=== PATIENT | female | born 1945 | race Two or more races ===

== ENCOUNTER 2016-11-14 14:56 | Emergency (ER) | payer MEDICARE ==
[~2016-11-14] VITALS: Ht 157.5 cm; Wt 52.2 kg
[2016-11-14 15:28] VITALS: BP 129/115
[2016-11-14] MEDS ORDERED: ACETAMINOPHEN-1 EAC1 ORAL (16:08)
--- NOTE | 2016-11-14 16:15 | Diagnostic Imaging Report ---
Indication: Pain Findings: 3 views of the left shoulder were obtained. There is an acute fracture of the humeral neck with some impaction. Generalized osteopenia is present. Impression: Acute fracture of the surgical neck of the left humerus. Moderate osteoporosis
--- NOTE | 2016-11-14 16:15 | Diagnostic Imaging Report ---
Indication: Pain Findings: 2 views of the left humerus were obtained. Bones are osteopenic. A fracture of the left femoral neck demonstrated. No other fractures are identified within the humerus. Impression: Acute humeral neck fracture
[2016-11-14 18:50] VITALS: BP 142/91
[2016-11-14 18:58] VITALS: BP 142/91
--- NOTE | 2016-11-14 19:30 | Emergency Room Report ---
History of Present Illness General Chief Complaint: Upper Extremity Injury Source: Patient Present Illness HPI 71-year-old female presents ED complaining of left shoulder pain. Per EMS patient had a mechanical fall yesterday at her intermediate. Patient had x- rays done yesterday which showed a humeral head fracture. Patient was sent here for further evaluation. Patient states pain is 10 out of 10. Throbbing. Nonradiating. No other aggravating relieving factors. Unable to move arm. Denies any other injuries. Denies any other associated symptoms Allergies: Coded Allergies: LIANG INHIBITORS (Verified Allergy, Unknown, 11/14/16) Patient History Past Medical History: HTN, dementia Pertinent Family History: none Social History: Denies: alcohol use, drug use, smoking Now: No Immunizations: UTD Reviewed Nursing Documentation: PMH: Agreed, PSxH: Agreed Nursing Documentation-PMH Hx Hypertension: Yes History Of Psychiatric Problem: Yes - Major depressive D/O, Alzheimer's Ds, Dementia Review of Systems All Other Systems: negative except mentioned in HPI Physical Exam Vital Signs Date Time Temp Pulse Resp B/P Pulse Ox O2 Delivery O2 Flow Rate FiO2 11/14/16 14:56 97.9 80 20 143/49 99 Room Air Sp02 EP Interpretation: reviewed, normal General Appearance: no apparent distress, alert, GCS 15, non-toxic Head: normocephalic Eyes: bilateral eye PERRL, bilateral eye normal inspection ENT: normal ENT inspection Neck: normal inspection Respiratory: normal inspection Cardiovascular #1: normal inspection Gastrointestinal: normal inspection Rectal: deferred Genitourinary: no CVA tenderness Musculoskeletal: decreased range of motion - L shoulder, tender Neurologic: alert, oriented x3, responsive, motor strength/tone normal, sensory intact, speech normal Psychiatric: normal inspection Skin: normal inspection Lymphatic: normal inspection Procedures Splinting Splinting : Consent: Verbal Pre-Made Type: Pre-Proc Neuro Vasc Exam: normal Post-Proc Neuro Vasc Exam: normal Patient Tolerated: Well Complications: None Medical Decision Making Diagnostic Impression: Primary Impression: Humerus fracture Qualified Codes: S42.215A - Unspecified nondisplaced fracture of surgical neck of left humerus, initial encounter for closed fracture ER Course Hospital Course 71-year-old F presents to ED complaining of L shoulder pain s/p fall Differential diagnoses include: Fracture, dislocation, sprain, contusion Clinical course Patient placed on stretcher. After initial history and physical, I ordered xrays of L shoudler/humerus Xrays read shows fracture of surgical neck of the humerus discussed case with Dr. Cooper; he agrees patient in the safely discharged back to SNF. Placed in shoulder sling Diagnosis - humerus fx Stable and discharged to SNF with prescription for Tylenol #3. apply ice, keep elevated. weight bear as tolerated. Followup with PMD. Return to ED if symptoms recur or worsen Other X-Ray Diagnostic Results Other X-Ray Diagnostic Results : X-Ray Ordered: L shoulder, L humerus EP Interpretation: No Findings: no dislocation Number of Views: 3 Other Impression Left shoulder-fracture of surgical neck of left humerus, no dislocation, positive soft tissue swelling Left humerus-fracture surgical neck left humerus, dislocation, positive soft tissue swelling Last Vital Signs Date Time Temp Pulse Resp B/P Pulse Ox O2 Delivery O2 Flow Rate FiO2 11/14/16 18:58 98.0 91 20 142/91 100 Room Air Status: improved Disposition: XFER SNF Condition: Stable Scripts Acetaminophen With Codeine (T#3) (TYLENOL #3 TAB*) Y Tab 1 TAB ORAL Q8H Y for For Pain, #20 TAB Prov: SELAM MURO M.D. 11/14/16 Referrals: Carols Green MD (PCP) Patient Instructions: Humerus Fracture Treated With Immobilization, Easy-to- Read SELAM MURO M.D. Nov 14, 2016 19:30
--- NOTE | 2016-11-14 23:59 | Consultation ---
DATE OF CONSULTATION: 11/14/2016 ORTHOPEDIC CONSULTATION CHIEF COMPLAINT: Left shoulder pain. HISTORY OF PRESENT ILLNESS: The patient is a 71-year-old female, who resides in a senior living facility and reportedly had a fall. She subsequently had an imaging study, which showed fracture. She was transferred to the ER for further care and recommendations. The patient has significant dementia and cognitive impairment. PAST MEDICAL HISTORY: Reviewed. PAST SURGICAL HISTORY: Reviewed. MEDICATIONS: Reviewed. PHYSICAL EXAMINATION: Limited. The patient is alert. She is nonverbal. She has pain with internal and external rotation. Left shoulder has some grimacing process. Radial pulses +2. IMAGING STUDIES: Showed two-part slightly displaced proximal humerus fracture. ASSESSMENT: Left two-part proximal humerus fracture. PLAN: I discussed at this point, given her dementia, cognitive impairment and osteoporosis what I recommend is nonoperative treatment. I recommend a sling immobilization and nonweightbearing and this fracture will heal in four to six weeks, at which point she can get some Codman exercises and functional rehabilitation. She can follow up in four to six weeks as outpatient. Eliseo Cooper M.D. DR: MIHIR JOB#: [id number] CC: ANNMARIE
== END 2016-11-14 19:00 ==
LOC: EDBD 14:56 → EMR 16:10
DX: S42.212A Unspecified displaced fracture of surgical neck of left humerus, initial encounter for closed fracture (principal); M81.8 Other osteoporosis without current pathological fracture; W19.XXXA Unspecified fall, initial encounter; Y92.129 Unspecified place in nursing home as the place of occurrence of the external cause; I10 Essential (primary) hypertension; F32.89 Other specified depressive episodes
CPT/HCPCS: 99285

== ENCOUNTER 2018-07-19 10:47 | Emergency (ER) | payer MEDICARE, OTHER ==
[~2018-07-19] VITALS: Ht 157.5 cm; Wt 61.2 kg
[~2018-07-19 10:47] MED LIST: ACETAMINOPHEN-1 EAC1 ORAL
[2018-07-19 10:55] VITALS: BP 147/104
[2018-07-19 11:39] LABS: BASOPHILS % (AUTO) 0.6 % (0.0-2.0); EOSINOPHILS % (AUTO) 0.4 % (0.0-3.0); HEMATOCRIT 43.1 % (37.0-47.0); HEMOGLOBIN 14.9 G/DL (12.0-16.0); LYMPHOCYTES % (AUTO) 12.8 % (20.0-45.0); MEAN CORPUSCULAR VOLUME 85 FL (80-99); MONOCYTES % (AUTO) 6.3 % (1.0-10.0); NEUTROPHILS % (AUTO) 79.9 % (45.0-75.0); PLATELET COUNT 268 K/UL (150-450); RED BLOOD COUNT 5.06 M/UL (4.20-5.40); RED CELL DISTRIBUTION WIDTH 12.6 % (11.6-14.8); WHITE BLOOD COUNT 12.5 K/UL (4.8-10.8)
[2018-07-19 11:42] LABS: APPEARANCE,URINE SLIGHTLY CLOUDY; BILIRUBIN, URINE NEGATIVE (NEGATIVE); COLOR,URINE PALE YELLOW; GLUCOSE, URINE (UA) NEGATIVE (NEGATIVE); KETONES,URINE NEGATIVE (NEGATIVE); LEUKOCYTE ESTERASE ,URINE 1+ (NEGATIVE); NITRITE,URINE NEGATIVE (NEGATIVE); PH,URINE 8 (4.5-8.0); PROTEIN,URINE NEGATIVE (NEGATIVE); UROBILINOGEN,URINE NORMAL MG/DL (0.0-1.0)
[2018-07-19 11:49] LABS: ANION GAP 11 mmol/L (5-15); BLOOD UREA NITROGEN 13 mg/dL (7-18); CALCIUM 8.8 MG/DL (8.5-10.1); CARBON DIOXIDE 25 MMOL/L (21-32); CHLORIDE 110 MMOL/L (98-107); CREATININE 0.6 MG/DL (0.55-1.30); POTASSIUM 3.9 MMOL/L (3.5-5.1); SODIUM 146 MMOL/L (136-145)
[2018-07-19 11:55] LABS: ALANINE AMINOTRANSFERASE 25 U/L (12-78); ALBUMIN 2.8 G/DL (3.4-5.0); ALBUMIN/GLOBULIN RATIO 0.5 (1.0-2.7); ALKALINE PHOSPHATASE 91 U/L (46-116); ASPARTATE AMINO TRANSFERASE 26 U/L (15-37); BILIRUBIN,TOTAL 0.5 MG/DL (0.2-1.0)
--- NOTE | 2018-07-19 12:21 | Diagnostic Imaging Report ---
Indications: Head injury, status post fall, forehead laceration Technique: Spiral acquisitions obtained through the brain. Angled axial and coronal 5 x 5 mm slices were reconstructed. Total dose length product 1344.42 mGycm. CTDI vol(s) 70.38 mGy. Dose reduction achieved using automated exposure control Comparison: None. Findings: There is marked age-related enlargement of the ventricles and extra axial CSF spaces. There is periventricular deep white matter low-attenuation. No acute intracranial hemorrhage or edema. No mass effect nor midline shift. There is minimal sinus disease. The mastoids are clear. The calvarium is intact Impression: Chronic and age-related changes, including age-related volume loss and periventricular deep white matter low attenuation consistent with chronic ischemic change. Negative for acute intracranial bleed or mass effect The CT scanner at [facility] is accredited by the [employer] and the scans are performed using protocols designed to limit radiation exposure to as low as reasonably achievable to attain images of sufficient resolution adequate for diagnostic evaluation.
--- NOTE | 2018-07-19 12:25 | Diagnostic Imaging Report ---
Indications: Fall with facial trauma and left laceration Technique: Spiral images obtained through the facial bones. No IV contrast utilized. Multiplanar reconstructions were generated.Total dose length product 581 mGycm. CTDIvol(s) 28 mGy. Dose reduction achieved using automated exposure control Comparison: none Findings: Gas bubbles anterior to the right mandibular alveolar ridge could be within the vocal space or could represent penetrating trauma related to stated clinical history of liver laceration. No evidence of acute fracture. There is sigmoid nasal septal deviation. No worrisome sinus air-fluid levels. There is minimal ethmoid sinus mucosal disease. The optic globes and retroseptal orbits are unremarkable except for evidence of prior cataract surgery on the left. Impression: No acute bony trauma Possible penetrating trauma to the right upper lip. Correlate with clinical findings Minimal sinus disease The CT scanner at [facility] is accredited by the [employer] and the scans are performed using protocols designed to limit radiation exposure to as low as reasonably achievable to attain images of sufficient resolution adequate for diagnostic evaluation.
[2018-07-19] MEDS ORDERED: TYLENOL325 M1 PO (12:28)
[2018-07-19] MEDS ORDERED: MULTI VITAMIN1 EACH ORAL (12:28)
[2018-07-19] MEDS ORDERED: TYLENOL325 MG ORAL (12:28)
[2018-07-19] MEDS ORDERED: PRO-STAT 64 LI887 ML PO (12:28)
[2018-07-19] MEDS ORDERED: VITAMIN C500 M3 ORAL (12:28)
[2018-07-19] MEDS ORDERED: LIPITOR20 MG ORAL (12:28)
[2018-07-19] MEDS ORDERED: FLEET ENEMA133 M1 RC (12:28)
[2018-07-19] MEDS ORDERED: NORVASC10 MG ORAL (12:28)
[2018-07-19] MEDS ORDERED: OYSTER SHELL 51 EAC1 PO (12:28)
[2018-07-19] MEDS ORDERED: MELATONIN3 MG ORAL (12:28)
[2018-07-19] MEDS ORDERED: MILK OF MA2400 MG/10 ORAL (12:28)
[2018-07-19] MEDS ORDERED: VITAMIN D3400 UNI2 PO (12:28)
[2018-07-19] MEDS ORDERED: COLACE100 MG ORAL (12:28)
[2018-07-19] MEDS ORDERED: DULCOLAX10 MG RC (12:28)
[2018-07-19] MEDS ORDERED: Hydrogen Peroxide 473ml Bottle TOPIC ONE ×2 (12:50→13:00)
[2018-07-19 12:55] VITALS: BP 102/85
[2018-07-19 14:27] VITALS: BP 130/61
[2018-07-19 14:37] VITALS: BP 130/60
--- NOTE | 2018-07-19 14:58 | Emergency Room Report ---
History of Present Illness General Chief Complaint: Multiple Trauma/Fall Source: Patient Present Illness HPI 72-year-old female presents ED for evaluation. Coming from [facility]. Had a headache injury when being transferred from bed to wheelchair. No LOC. Upon arrival patient is at baseline. Awake alert oriented 1. Bleeding above the left eye. Patient is unable to provide any additional history at this time. No signs of additional injury. Not taking blood thinners. No other aggravating relieving factors. Denies any other associated symptoms Allergies: Coded Allergies: LIANG INHIBITORS (Verified Allergy, Unknown, 11/14/16) Patient History Past Medical History: HTN, other - diverticulosis Pertinent Family History: none Social History: Denies: smoking, alcohol use, drug use Now: No Immunizations: UTD Reviewed Nursing Documentation: PMH: Agreed; PSxH: Agreed Nursing Documentation-PMH Past Medical History: No History, Except For Hx Hypertension: Yes Hx Gastrointestinal Problems: Yes - Diverticulosis Review of Systems All Other Systems: limited Physical Exam Vital Signs Date Time Temp Pulse Resp B/P (MAP) Pulse Ox O2 Delivery O2 Flow Rate FiO2 07/19/18 10:44 97.5 18 20 98 Room Air 07/19/18 10:55 147/104 Sp02 EP Interpretation: reviewed, normal General Appearance: no apparent distress, non-toxic, other - nonverbal Head: normocephalic, other - 1cm laceration above L eyebrow ENT: normal ENT inspection Neck: normal inspection Respiratory: chest non-tender, lungs clear, normal breath sounds, speaking full sentences Cardiovascular #1: regular rate, rhythm, no edema Gastrointestinal: normal inspection Rectal: deferred Genitourinary: no CVA tenderness Musculoskeletal: normal inspection Neurologic: other - nonverbal Psychiatric: other - nonverbal Skin: normal inspection Lymphatic: normal inspection Procedures Laceration/Wound Repair Laceration/Wound Repair : Consent: Verbal Wound Location: head Wound's Depth, Shape: linear Wound Explored: clean Betadine Prep?: Yes Wound Debrided: minimal Wound Repaired With: Dermabond Layer Closure?: No Sterile Dressing Applied?: No Splint Applied?: No Sling Applied?: Yes Patient Tolerated: Well Complications: None Medical Decision Making Diagnostic Impression: Primary Impression: Laceration of head Qualified Codes: S01.81XA - Laceration without foreign body of other part of head, initial encounter Additional Impression: Head injury Qualified Codes: S09.90XA - Unspecified injury of head, initial encounter ER Course Hospital Course 72 yo F presents to ED with laceration to forehead s/p fall Clinical course Patient placed on stretcher. After initial history and physical I ordered CT head, facial bones. Labs. Labssodium 146, minimal leukocytosis. BUN/Cr normal. UA negative CT head and CT facial bones negative For laceration repaired with Dermabond. Lip laceration is minimal does not require suturing. Discussed findings with PMD Dr. Green he agrees that patient can be safely discharged back to facility Diagnosis - laceration of head, head injury Stable and discharged to home. wound Care instructions given. Followup with PMD. Return to ED if any signs of infection develop Labs Test 07/19/18 11:20 White Blood Count 12.5 K/UL (4.8-10.8) Red Blood Count 5.06 M/UL (4.20-5.40) Hemoglobin 14.9 G/DL (12.0-16.0) Hematocrit 43.1 % (37.0-47.0) Mean Corpuscular Volume 85 FL (80-99) Mean Corpuscular Hemoglobin 29.4 PG (27.0-31.0) Mean Corpuscular Hemoglobin Concent 34.5 G/DL (32.0-36.0) Red Cell Distribution Width 12.6 % (11.6-14.8) Platelet Count 268 K/UL (150-450) Mean Platelet Volume 5.7 FL (6.5-10.1) Neutrophils (%) (Auto) 79.9 % (45.0-75.0) Lymphocytes (%) (Auto) 12.8 % (20.0-45.0) Monocytes (%) (Auto) 6.3 % (1.0-10.0) Eosinophils (%) (Auto) 0.4 % (0.0-3.0) Basophils (%) (Auto) 0.6 % (0.0-2.0) Urine Color Pale yellow Urine Appearance Slightly cloudy Urine pH 8 (4.5-8.0) Urine Specific [place] 1.010 (1.005-1.035) Urine Protein Negative (NEGATIVE) Urine Glucose (UA) Negative (NEGATIVE) Urine Ketones Negative (NEGATIVE) Urine Blood 1+ (NEGATIVE) Urine Nitrite Negative (NEGATIVE) Urine Bilirubin Negative (NEGATIVE) Urine Urobilinogen Normal MG/DL (0.0-1.0) Urine Leukocyte Esterase 1+ (NEGATIVE) Urine RBC 0-2 /HPF (0 - 2) Urine WBC 2-4 /HPF (0 - 2) Urine Squamous Epithelial Cells Few /LPF (NONE/OCC) Urine Bacteria Few /HPF (NONE) Sodium Level 146 MMOL/L (136-145) Potassium Level 3.9 MMOL/L (3.5-5.1) Chloride Level 110 MMOL/L (98-107) Carbon Dioxide Level 25 MMOL/L (21-32) Anion Gap 11 mmol/L (5-15) Blood Urea Nitrogen 13 mg/dL (7-18) Creatinine 0.6 MG/DL (0.55-1.30) Estimat Glomerular Filtration Rate mL/min (>60) Glucose Level 90 MG/DL (74-106) Calcium Level 8.8 MG/DL (8.5-10.1) Total Bilirubin 0.5 MG/DL (0.2-1.0) Aspartate Amino Transf (AST/SGOT) 26 U/L (15-37) Alanine Aminotransferase (ALT/SGPT) 25 U/L (12-78) Alkaline Phosphatase 91 U/L (46-116) Total Protein 7.9 G/DL (6.4-8.2) Albumin 2.8 G/DL (3.4-5.0) Globulin 5.1 g/dL Albumin/Globulin Ratio 0.5 (1.0-2.7) Lipase 299 U/L (73-393) CT/MRI/US Diagnostic Results CT/MRI/US Diagnostic Results #1: Imaging Test Ordered: CT Head Impression no acute process CT/MRI/US Diagnostic Results #2: Imaging Test Ordered: CT Facial Boens Impression no acute process Last Vital Signs Date Time Temp Pulse Resp B/P (MAP) Pulse Ox O2 Delivery O2 Flow Rate FiO2 07/19/18 14:37 98.1 85 18 130/60 99 Room Air 85 Status: improved Disposition: HOME, SELF-CARE Condition: Stable Patient Instructions: Facial Laceration, [id number] Ruben Cox MD Jul 19, 2018 14:58
== END 2018-07-19 14:44 | disposition home or self-care (01) ==
LOC: EDBD 10:47 → EMR 11:10
DX: S01.81XA Laceration without foreign body of other part of head, initial encounter (principal); W19.XXXA Unspecified fall, initial encounter; Y92.129 Unspecified place in nursing home as the place of occurrence of the external cause; J34.9 Unspecified disorder of nose and nasal sinuses
CPT/HCPCS: 36415; 70450; 70486; 80053; 81003; 83690; 85025; 99284

== ENCOUNTER 2018-10-18 12:16 | Inpatient (IN) | payer MEDICARE, OTHER ==
[~2018-10-18] VITALS: Ht 147.3 cm; Wt 64.4 kg
[~2018-10-18 12:16] MED LIST changes: +COLACE100 MG ORAL; +DULCOLAX10 MG RC; +FLEET ENEMA133 M1 RC; +LIPITOR20 MG ORAL; +MELATONIN3 MG ORAL; +MILK OF MA2400 MG/10 ORAL; +MULTI VITAMIN1 EACH ORAL; +NORVASC10 MG ORAL; +OYSTER SHELL 51 EAC1 PO; +PRO-STAT 64 LI887 ML PO; +TYLENOL325 M1 PO; +TYLENOL325 MG ORAL; +VITAMIN C500 M3 ORAL; +VITAMIN D3400 UNI2 PO
[2018-10-18] MEDS ORDERED: ATORVASTATIN CA20 MG ORAL (12:19)
[2018-10-18] MEDS ORDERED: NORVASC10 MG ORAL (12:19)
[2018-10-18] MEDS ORDERED: ASPIRIN-LOW81 MG ORAL (12:19)
[2018-10-18] MEDS ORDERED: levETIRAcetam 500 MG in D5W 110 ML IV ONE (12:30)
--- NOTE | 2018-10-18 12:30 | NUR ---
ED Nurse Note: Pt brought in by [facility] from [facility] conv c/o seizure lasted about 1 min witnessed by pt's . per EMS pt has no hx seizure. Pt neuro status baseline arousable to pain. BS 106 on field. PT awake but nonverbal at this time, able to make eye contact, skin warm and dry, resp even and unlabored, -n/v/d, on bed rest, will cont monitor. seizure precaution and aspiration precaution started.
--- NOTE | 2018-10-18 13:26 | Diagnostic Imaging Report ---
Indications: Seizure about 30 minutes ago, altered mental status Technique: Spiral acquisitions obtained through the brain. Angled axial and coronal 5 x 5 mm slices were reconstructed. Total dose length product 1365.53 mGycm. CTDI vol(s) 70.38 mGy. Dose reduction achieved using automated exposure control Comparison: 07/19/2018 Findings: Again demonstrated is marked age-related enlargement of the ventricles and extra axial CSF spaces. No acute intracranial hemorrhage nor edema, mass effect nor midline shift. There is extensive periventricular deep white matter low-attenuation, consistent with chronic ischemic change. There is evidence of prior cataract surgery on the left. The included sinuses are unremarkable. The mastoids are clear. The calvarium is intact. No significant interim change Impression: Chronic and age-related changes, as described. Negative for acute intracranial bleed or mass effect The CT scanner at [facility] is accredited by the [employer] and the scans are performed using protocols designed to limit radiation exposure to as low as reasonably achievable to attain images of sufficient resolution adequate for diagnostic evaluation.
[2018-10-18 14:10] VITALS: BP 129/76
--- NOTE | 2018-10-18 14:30 | NUR ---
ED Nurse Note: witnessed sz x1 activity for 30sec, ERMD notified, airway maintained, pt sinus tach, teeth clenched, resp even and unlabored, sz precaution and aspiration precaution in place, will cont monitor.
--- NOTE | 2018-10-18 14:42 | Emergency Room Report ---
History of Present Illness General Chief Complaint: Seizure Present Illness HPI Patient is a 72-year-old female brought in by EMS after increased altered mental status. Patient had been sent in from retirement. Patient had reportedly been having some witnessed seizure-like activity. Patient had been noted to be chronically debilitated. Patient was sent in for increased confusion.History is limited by patient's mental status. Allergies: Coded Allergies: LIANG INHIBITORS (Verified Allergy, Unknown, 11/14/16) Patient History Past Medical History: see triage record Reviewed Nursing Documentation: PMH: Agreed; PSxH: Agreed Nursing Documentation-PMH Hx Hypertension: Yes Hx Gastrointestinal Problems: Yes - Diverticulosis Review of Systems All Other Systems: limited - by mental status Physical Exam Vital Signs Date Time Temp Pulse Resp B/P (MAP) Pulse Ox O2 Delivery O2 Flow Rate FiO2 10/18/18 12:11 98.2 110 16 131/81 97 Room Air Sp02 EP Interpretation: reviewed, normal General Appearance: alert, thin, Chronically Ill Head: atraumatic ENT: normal ENT inspection, hearing grossly normal, normal voice Neck: no bony tend Respiratory: normal inspection, no respiratory distress, no retraction, no wheezing Gastrointestinal: soft, no guarding, no hernia Genitourinary: no CVA tenderness Musculoskeletal: normal inspection, back normal, normal range of motion Neurologic: motor weakness Psychiatric: depressed affect Skin: normal inspection, normal color, no rash Medical Decision Making Diagnostic Impression: Primary Impression: Altered mental status Additional Impression: Epileptic seizure, generalized ER Course Patient presented for altered mental status. Differential diagnosis included but was not limited to ischemic stroke, subarachnoid hemorrhage, hypoglycemia, spinal cord injury, neurodegenerative disorder, urinary tract infection, hypoxemia. Because of complexity of patient's case laboratory testing and imaging studies were ordered.Patient was noted to have elevated white blood count. This is likely due to patient's recent seizure activity. Patient was given IV Keppra Dr. Carlos Tobar was contacted for inpatient management. Dr. Chappell was contacted for neurology consult Labs Test 10/18/18 14:40 White Blood Count 21.9 K/UL (4.8-10.8) Red Blood Count 5.57 M/UL (4.20-5.40) Hemoglobin 16.3 G/DL (12.0-16.0) Hematocrit 49.6 % (37.0-47.0) Mean Corpuscular Volume 89 FL (80-99) Mean Corpuscular Hemoglobin 29.2 PG (27.0-31.0) Mean Corpuscular Hemoglobin Concent 32.8 G/DL (32.0-36.0) Red Cell Distribution Width 12.9 % (11.6-14.8) Platelet Count 266 K/UL (150-450) Mean Platelet Volume 5.6 FL (6.5-10.1) Neutrophils (%) (Auto) % (45.0-75.0) Lymphocytes (%) (Auto) % (20.0-45.0) Monocytes (%) (Auto) % (1.0-10.0) Eosinophils (%) (Auto) % (0.0-3.0) Basophils (%) (Auto) % (0.0-2.0) Sodium Level 145 MMOL/L (136-145) Potassium Level 3.3 MMOL/L (3.5-5.1) Chloride Level 109 MMOL/L (98-107) Carbon Dioxide Level 18 MMOL/L (21-32) Anion Gap 18 mmol/L (5-15) Blood Urea Nitrogen 13 mg/dL (7-18) Creatinine 0.9 MG/DL (0.55-1.30) Estimat Glomerular Filtration Rate mL/min (>60) Glucose Level 133 MG/DL (74-106) Calcium Level 8.9 MG/DL (8.5-10.1) Total Bilirubin 0.6 MG/DL (0.2-1.0) Aspartate Amino Transf (AST/SGOT) 42 U/L (15-37) Alanine Aminotransferase (ALT/SGPT) 46 U/L (12-78) Alkaline Phosphatase 111 U/L (46-116) Troponin I 0.000 ng/mL (0.000-0.056) Total Protein 8.4 G/DL (6.4-8.2) Albumin 3.3 G/DL (3.4-5.0) Globulin 5.1 g/dL Albumin/Globulin Ratio 0.6 (1.0-2.7) Last Vital Signs Date Time Temp Pulse Resp B/P (MAP) Pulse Ox O2 Delivery O2 Flow Rate FiO2 10/18/18 12:11 98.2 110 16 131/81 97 Room Air Status: unchanged Disposition: ADMITTED INPATIENT Condition: Serious Referrals: aCrlos Green MD (PCP) Torey Berumen MD Oct 18, 2018 14:42
--- NOTE | 2018-10-18 15:00 | NUR ---
ED Nurse Note: pt vss, airway intact, resp even and unlabored on RA, NSR, will cont monitor.
[2018-10-18 15:29] LABS: HEMATOCRIT 49.6 % (37.0-47.0); HEMOGLOBIN 16.3 G/DL (12.0-16.0); MEAN CORPUSCULAR VOLUME 89 FL (80-99); PLATELET COUNT 266 K/UL (150-450); RED BLOOD COUNT 5.57 M/UL (4.20-5.40); RED CELL DISTRIBUTION WIDTH 12.9 % (11.6-14.8); WHITE BLOOD COUNT 21.9 K/UL (4.8-10.8)
[2018-10-18 15:32] LABS: ANION GAP 18 mmol/L (5-15); BLOOD UREA NITROGEN 13 mg/dL (7-18); CALCIUM 8.9 MG/DL (8.5-10.1); CARBON DIOXIDE 18 MMOL/L (21-32); CHLORIDE 109 MMOL/L (98-107); CREATININE 0.9 MG/DL (0.55-1.30); POTASSIUM 3.3 MMOL/L (3.5-5.1); SODIUM 145 MMOL/L (136-145)
[2018-10-18 15:36] LABS: ALANINE AMINOTRANSFERASE 46 U/L (12-78); ALBUMIN 3.3 G/DL (3.4-5.0); ALBUMIN/GLOBULIN RATIO 0.6 (1.0-2.7); ALKALINE PHOSPHATASE 111 U/L (46-116); ASPARTATE AMINO TRANSFERASE 42 U/L (15-37); BILIRUBIN,TOTAL 0.6 MG/DL (0.2-1.0)
[2018-10-18 16:00] VITALS: BP 141/55
--- NOTE | 2018-10-18 16:00 | NUR ---
ED Nurse Note: 16 fr straight cath done per ERMD order, pt tolerated well, 30cc urine returned, straight cath d/c.
[2018-10-18 16:10] VITALS: BP 125/66
--- NOTE | 2018-10-18 16:15 | NUR ---
ED Nurse Note: urine specimen sent.
--- NOTE | 2018-10-18 16:20 | NUR ---
ED Nurse Note: all belongings sent with pt.
--- NOTE | 2018-10-18 16:20 | NUR ---
ED Nurse Note: pt transferred to tele, report given to VALENTINO KC
[2018-10-18 16:22] LABS: APPEARANCE,URINE CLEAR; BILIRUBIN, URINE NEGATIVE (NEGATIVE); COLOR,URINE PALE YELLOW; GLUCOSE, URINE (UA) NEGATIVE (NEGATIVE); KETONES,URINE 1+ (NEGATIVE); LEUKOCYTE ESTERASE ,URINE 3+ (NEGATIVE); NITRITE,URINE NEGATIVE (NEGATIVE); PH,URINE 6 (4.5-8.0); PROTEIN,URINE 2+ (NEGATIVE); UROBILINOGEN,URINE NORMAL MG/DL (0.0-1.0)
--- NOTE | 2018-10-18 16:25 | NUR ---
NURSE NOTES: Pt received from DE Clark alert and oriented x0, nonverbal. No s/s of acute distress or SOB, saturating at 98% on room air. VSS stable - 141/55 88 HR, 95.5%, 98%, RR 18. Sinus rhythm on the monitor, paper bag press operator on. IV sites asymptomatic and patent. Bed in lowest position, call light and belongings within reach. No wounds upon admission, contracted on bilateral lower extremities and right upper extremity. Belongings with patient upon admission (shirt, socks, tank top, and pants). Seizure precautions implemented - suction at bedside, side rails padded. Meds reconciled. Left message with Dr. Green for admission orders, will continue to monitor.
--- NOTE | 2018-10-18 16:50 | NUR ---
ED Nurse Note: culture swabs sent.
[2018-10-18] MEDS ORDERED: Acetaminophen 500mg (ES) tab ORAL PRN (17:15)
--- NOTE | 2018-10-18 17:15 | NUR ---
NURSE NOTES: Admission orders received from Dr. Green. Will carry out orders. Per Dr. Green, "d/c home meds for now."
--- NOTE | 2018-10-18 17:27 | Diagnostic Imaging Report ---
Indication: Shortness of breath Technique: One view of the chest Comparison: none Findings: Lungs and pleural spaces are clear. The heart size is normal. The aorta is tortuous and calcified. Impression: No acute process
--- NOTE | 2018-10-18 17:30 | NUR ---
NURSE NOTES: RN called Farheen from [facility] to confirm flu and pneumonia vaccine dates. Per Farheen, "Pt received flu vaccine - 06/10/2018. PNA vaccine - -05/2017" Will update records.
[2018-10-18 18:10] VITALS: BP 129/51
--- NOTE | 2018-10-18 18:19 | Consultation ---
Consult Note Consult Note Patient is a 72-year-old female brought in by EMS after increased altered mental status. Patient had been sent in from [facility]. Patient had reportedly been having some witnessed seizure-like activity. Patient had been noted to be chronically debilitated. Patient was sent in for increased confusion.History is limited by patient's mental status. Allergies: LIANG INHIBITORS (Verified Allergy, Unknown, 11/14/16) Hx Hypertension: Yes Hx Gastrointestinal Problems: Yes - Diverticulosis examined discussed with wire loop machine operator/Plan Acute Encephalopathy UTI Sepsis Pedro Lagunas IV Correct lytes antibiotics NPO St eval Gastric support anti Ashok Horne MD Oct 18, 2018 18:19
[2018-10-18] MEDS ORDERED: LORazepam Inj 2mg/ml 1ml IV PRN ×2 (18:30→19:00)
--- NOTE | 2018-10-18 18:47 | NUR ---
CASE MANAGEMENT: REVIEW 72/ BIBA FROM [facility] CC: SEIZURE SI: AMS . ACUTE ENCEPHALOPATHY . SEIZURE T 95.5 HR 110 RR 16 BP 141/55 SAT 97% ROOM AIR WBC 21.9 H/H 16.3/49.6 K 3.3 IS: KEPPRA IV X1 NS IVF BOLUS X1 ATIVAN IV X1 PATIENT ADMITTED TO TELEMETRY UNIT 10/18/2018 DCP: PATIENT IS FROM [facility] CONV
[2018-10-18 20:00] VITALS: BP 135/60
[2018-10-18] MEDS: Piperacillin/Tazobactam 3.375 GM in NS 110 ML IVPB SCH (20:47)
[2018-10-18] MEDS: D5 1/2NS w/KCl 20mEq 1,000 ML IV SCH (20:48)
[2018-10-18] MEDS: Heparin 5000 units/ml inj SUBQ SCH (20:52)
[2018-10-18] MEDS ORDERED: levETIRAcetam 1,000 MG in D5W 95 ML IV SCH (21:00)
[2018-10-19] VITALS: BP 124/58
[2018-10-19] MEDS ORDERED: Acetaminophen 650 MG SUPP RECTAL PRN ×2 (00:30→01:00)
--- NOTE | 2018-10-19 03:45 | Consultation ---
DATE OF CONSULTATION: 10/18/2018 NOTE: POOR AUDIO NEUROLOGIC CONSULTATION: CONSULTING PHYSICIAN: Armand Chappell M.D. HISTORY OF PRESENT ILLNESS: The patient is a 72-year-old woman with previous history of probable Alzheimer disease, major depressive disorder, hyperlipidemia, arterial sclerosis of the aorta, essential hypertension, generalized muscle weakness, dysphagia and zoster without complications and admitted with a chief complaint of seizure today. History taken from the snf note. The patient was transferred to the emergency room at [facility]. The patient was lying supine in the snf bed when the paramedics came, but she was apparently sitting in a wheelchair when she suddenly began to shake lasting approximately a minute. She had some oral trauma. No other evidence of trauma. No incontinence. The patient could not respond and was brought to this hospital. She was seen in the emergency room. Temperature was 98.2 degrees, blood pressure was 131/81, pulse is 110. She apparently had a seizure also in the ER. She was started on IV Keppra and I was contacted for neuro consultation. Her CBC, white count of 21,900 and hemoglobin of 16.3 with an MCV of 89. Otherwise normochromic normocytic indices. Platelet count 266,000. Her potassium is 3.3 with sodium of 145. Anion gap was 18, BUN was 13, creatinine was 0.9. Her glucose level was 133. Last month's studies were pretty much normal. The patient had a chest x-ray, which revealed no acute processes. She had a torturous and calcified aorta. The head CT scan revealed chronic and age-related changes. Negative for any intracranial bleed or mass effect. The patient was given acetaminophen. Complete drug screen is noted, which was negative. Urinalysis revealed 15 to 20 wbc's per high-power field, 5 to 10 rbc's, 2+ protein, 1+ ketones, 2+ blood. Specific gravity is 1.020 with a pH of 6. There are few bacteria noted in the urine. EKG was ordered. The attempt was made to call the patient's son, which was unsuccessful. There is no family history of neurologic disease, past medical history, past medical illnesses . She has a history of diverticulosis status post the above. ALLERGIES: No known allergies. FAMILY HISTORY: Unavailable. REVIEW OF SYSTEMS: Unobtainable. PHYSICAL EXAMINATION: GENERAL: She is a well-developed woman, lying in bed with her eyes closed, nearly comatose, flexed on the neck and the body lying on the left side. VITAL SIGNS: Temperature is 95.5 degrees, blood pressure 141/85, pulse oximetry is 98%, pulse rate is 97. HEENT: Examination of the head revealed no obvious lesions except for some what appears to be blood, reddish lipstick on her lips. NECK: Her neck was stiff in all 4 directions. The carotid arteries cannot be heard. LUNGS: She had some rhonchi bilaterally. No rales. CARDIOVASCULAR: The patient has a normal S1. S2 appeared to be physiologically split. There is no S3 or S4. No murmurs or rubs appreciated. ABDOMEN: Slightly obese. Bowel sounds are increased. There is no rigidity, tenderness, masses, or organomegaly. BACK: Could not be tested. EXTREMITIES: There is no edema or erythema noted. Reflexes are 0 in the upper and lower extremities with downgoing toes and testing for Babinski response. NEUROLOGIC: MENTAL STATUS: The patient laid with her eyes closed. There is no response to her name. No spontaneous speech. No response to midline or lateral commands. The eyes are tightly closed. CRANIAL NERVE II: Visual petit are absent on the right. Fundi could not be visualized. CRANIAL NERVES III, IV, AND VII: The eyes appeared to be in the midline. The pupils are about 3 mm, round, and reactive. CRANIAL NERVE V: Corneal responses are intact bilaterally. CRANIAL NERVE VII: Facial grimace appears to be symmetrical. CRANIAL NERVE VIII: Could not be tested. CRANIAL NERVE IX AND X: She cannot open her mouth. CRANIAL NERVES XI AND XII: Could not be tested. MUSCULOSKELETAL: She has significantly increased tone in both upper extremities and left lower extremities. More decreased tone in the right lower extremity. She can move her arms minimally. Could elevate the arms. There are no tremors or asterixis. No tonic-colonic movements noted. She had intact pain sensation her chest and she did move her arms upwards. She did move her legs a little bit on pinching on the legs bilaterally. SENSORY: Sensation is intact to deep pain. IMPRESSION: This patient has a diffusely multifocal lesion, superimposed on probable longstanding chronic Alzheimer disease. Seizures can be seen in Alzheimer disease usually at end-stage liver disease. The patient apparently did not get Ativan or Valium in the ER. The patient had a high white count, which maybe related to seizures. Infection is a possibility, possibly aspirated. I doubt that this is herpes simplex encephalitis at this time. The CT scan cannot rule out herpes simplex encephalitis. The question is in this patient is how aggressively be involved in the treatment. She is a DNR. She may have fever as well; however, in favor of just treating her with the anticonvulsants, perhaps getting a chest x-ray and perhaps getting some blood cultures. I doubt she had a subarachnoid hemorrhage. no evidence of brain tumor. PLAN: 1. IV Keppra 500 mg b.i.d. 2. Ativan 2 mg IV p.r.n. acute seizure. 3. EEG. 4. I will speak about this case. Armand Chappell MD DR: KEITH JOB#: [id number] CC: ANNMARIE
[2018-10-19 04:00] VITALS: BP 157/83
[2018-10-19] MEDS: Piperacillin/Tazobactam 3.375 GM in NS 110 ML IVPB SCH ×3 (05:19→21:23)
--- NOTE | 2018-10-19 07:05 | NUR ---
HAND-OFF: Report given to Melquiades Walker RN. No acute distress at this time.
--- NOTE | 2018-10-19 07:10 | NUR ---
NURSE NOTES: pt asleep , arousable . no distress. call light within reach. bed in lowest position, locked. will monitor. ivf running
[2018-10-19 07:30] LABS: CREATINE KINASE 111 U/L (26-308); GAMMA GLUTAMYL TRANSPEPTIDASE 12 U/L (5-85); PHOSPHORUS 2.7 MG/DL (2.5-4.9)
[2018-10-19 07:36] LABS: AMMONIA < 10 umol/L (11-32)
[2018-10-19 07:45] LABS: ALANINE AMINOTRANSFERASE 33 U/L (12-78); ALBUMIN/GLOBULIN RATIO 0.6 (1.0-2.7); ALKALINE PHOSPHATASE 98 U/L (46-116); ANION GAP 11 mmol/L (5-15); ASPARTATE AMINO TRANSFERASE 29 U/L (15-37); BILIRUBIN,TOTAL 0.8 MG/DL (0.2-1.0); BLOOD UREA NITROGEN 11 mg/dL (7-18); CALCIUM 8.5 MG/DL (8.5-10.1); CARBON DIOXIDE 22 MMOL/L (21-32); CHLORIDE 109 MMOL/L (98-107); CHOLESTEROL 204 MG/DL (< 200); CREATININE 0.9 MG/DL (0.55-1.30); HDL CHOLESTEROL 76 MG/DL (40-60); POTASSIUM 4.2 MMOL/L (3.5-5.1); SODIUM 142 MMOL/L (136-145); TRIGLYCERIDES 99 MG/DL (30-150)
[2018-10-19 07:46] LABS: HEMATOCRIT 49.7 % (37.0-47.0); HEMOGLOBIN 16.8 G/DL (12.0-16.0); MEAN CORPUSCULAR VOLUME 86 FL (80-99); PLATELET COUNT 211 K/UL (150-450); RED BLOOD COUNT 5.75 M/UL (4.20-5.40); RED CELL DISTRIBUTION WIDTH 12.7 % (11.6-14.8); WHITE BLOOD COUNT 11.9 K/UL (4.8-10.8)
[2018-10-19 08:02] VITALS: BP 168/87
[2018-10-19] MEDS: Heparin 5000 units/ml inj SUBQ SCH ×2 (08:18→21:25)
[2018-10-19] MEDS: D5 1/2NS w/KCl 20mEq 1,000 ML IV SCH ×2 (08:51→21:29)
--- NOTE | 2018-10-19 09:13 | NUR ---
NURSE NOTES: paged dr Ann re bp trend and pt med recon had norvasc, and pt unable to do st eval still drowsy, awaiting call back
--- NOTE | 2018-10-19 09:33 | NUR ---
ST NOTE: RECEIVED BEDSIDE SWALLOW EVAL CHART REVIEWED. ATTEMPTED TO SEE PT ON BEDSIDE. PT LETHARGIC, AND UNABLE TO AROUSE EVEN GIVEN MAX CUES(CHEST RUB). CONTINUE NPO FOR NOW. WILL RETURN TO RE-EVALUATE. RN, TRU, NOTIFIED.
[2018-10-19] MEDS: levETIRAcetam 1,000mg/NS100ml 100 ML IVPB SCH ×2 (09:42→21:24)
--- NOTE | 2018-10-19 10:51 | Nephrology Progress Note ---
Assessment/Plan Problem List: (1) Epileptic seizure, generalized (2) UTI (urinary tract infection) (3) Encephalopathy Assessment Acute Encephalopathy UTI Sepsis, leukocytosis Sz Plan [place] IV fluids Correct lytes antibiotics, Zosyn NPO , St eval Gastric support, pepcid anti Sz meds monitor neuro status Subjective ROS Limited/Unobtainable: No Constitutional: Reports: other Neurologic/Psychiatric: Reports: other - non verbal Objective Objective Last 24 Hour Vital Signs Date Time Temp Pulse Resp B/P (MAP) Pulse Ox O2 Delivery O2 Flow Rate FiO2 10/19/18 08:02 98.8 91 19 168/87 (114) 96 10/19/18 07:03 Room Air Room Air 10/19/18 04:00 98.8 102 19 157/83 (107) 96 10/19/18 04:00 95 10/19/18 00:00 99.8 71 17 124/58 (80) 95 10/19/18 00:00 84 10/18/18 22:33 97.8 89 18 132/78 100 Room Air 10/18/18 21:00 Room Air Room Air 10/18/18 20:00 65 10/18/18 20:00 99.2 80 17 135/60 (85) 96 10/18/18 18:10 95.5 94 18 129/51 98 Room Air 10/18/18 18:10 97 18 Room Air 10/18/18 16:28 Room Air 10/18/18 16:15 81 10/18/18 16:10 95.5 94 18 125/66 98 Room Air 10/18/18 16:00 95.5 97 18 141/55 (83) 98 10/18/18 14:10 98.2 89 16 129/76 99 Room Air 10/18/18 12:11 98.2 110 16 131/81 97 Room Air Intake and Output 10/18/18 10/19/18 18:59 06:59 Intake Total 960.0 ml Output Total 0 ml 550 ml Balance 0 ml 410.0 ml Intake IV Total 960.0 ml Output Urine Total 0 ml 550 ml # Voids 1 Laboratory Tests 10/18/18 14:35: C-Reactive Protein, Quantitative 0.6 10/18/18 14:40: White Blood Count 21.9H, Red Blood Count 5.57H, Hemoglobin 16.3H, Hematocrit 49.6H, Mean Corpuscular Volume 89, Mean Corpuscular Hemoglobin 29.2, Mean Corpuscular Hemoglobin Concent 32.8, Red Cell Distribution Width 12.9, Platelet Count 266, Mean Platelet Volume 5.6L, Neutrophils (%) (Auto) , Lymphocytes (%) ( Auto) , Monocytes (%) (Auto) , Eosinophils (%) (Auto) , Basophils (%) (Auto) , Differential Total Cells Counted 100, Neutrophils % (Manual) 78H, Lymphocytes % (Manual) 14L, Monocytes % (Manual) 6, Eosinophils % (Manual) 0, Basophils % ( Manual) 0, Band Neutrophils 2, Platelet Estimate Adequate, Platelet Morphology Normal, Red Blood Cell Morphology Normal, Sodium Level 145, Potassium Level 3.3L , Chloride Level 109H, Carbon Dioxide Level 18L, Anion Gap 18H, Blood Urea Nitrogen 13, Creatinine 0.9, Estimat Glomerular Filtration Rate , Glucose Level 133H, Calcium Level 8.9, Total Bilirubin 0.6, Aspartate Amino Transf (AST/SGOT) 42H, Alanine Aminotransferase (ALT/SGPT) 46, Alkaline Phosphatase 111, Troponin I 0.000, Total Protein 8.4H, Albumin 3.3L, Globulin 5.1, Albumin/Globulin Ratio 0.6L 10/18/18 15:50: Urine Color Pale yellow, Urine Appearance Clear, Urine pH 6, Urine Specific [place] 1.020, Urine Protein 2+H, Urine Glucose (UA) Negative, Urine Ketones 1+H , Urine Blood 2+H, Urine Nitrite Negative, Urine Bilirubin Negative, Urine Urobilinogen Normal, Urine Leukocyte Esterase 3+H, Urine RBC 5-10H, Urine WBC 15 -20H, Urine Squamous Epithelial Cells Few, Urine Bacteria Few, Urine Opiates Screen Negative, Urine Barbiturates Screen Negative, Phencyclidine (PCP) Screen Negative, Urine Amphetamines Screen Negative, Urine Benzodiazepines Screen Negative, Urine Cocaine Screen Negative, Urine Marijuana (THC) Screen Negative 10/19/18 06:30: White Blood Count 11.9H, Red Blood Count 5.75H, Hemoglobin 16.8H, Hematocrit 49.7H, Mean Corpuscular Volume 86, Mean Corpuscular Hemoglobin 29.3, Mean Corpuscular Hemoglobin Concent 33.9, Red Cell Distribution Width 12.7, Platelet Count 211, Mean Platelet Volume 5.4L, Neutrophils (%) (Auto) , Lymphocytes (%) ( Auto) , Monocytes (%) (Auto) , Eosinophils (%) (Auto) , Basophils (%) (Auto) , Differential Total Cells Counted 100, Neutrophils % (Manual) 74, Lymphocytes % ( Manual) 12L, Monocytes % (Manual) 3, Eosinophils % (Manual) 0, Basophils % ( Manual) 0, Band Neutrophils 11H, Platelet Estimate Adequate, Platelet Morphology Normal, Red Blood Cell Morphology Normal, Sodium Level 142, Potassium Level 4.2, Chloride Level 109H, Carbon Dioxide Level 22, Anion Gap 11 , Blood Urea Nitrogen 11, Creatinine 0.9, Estimat Glomerular Filtration Rate , Glucose Level 147H, Calcium Level 8.5, Total Bilirubin 0.8, Aspartate Amino Transf (AST/SGOT) 29, Alanine Aminotransferase (ALT/SGPT) 33, Alkaline Phosphatase 98, Troponin I 0.002, Total Protein 7.7, Albumin 3.0L, Globulin 4.7 , Albumin/Globulin Ratio 0.6L, Hemoglobin A1c 5.6, Uric Acid 5.5, Phosphorus Level 2.7, Magnesium Level 2.4, Gamma Glutamyl Transpeptidase 12, Ammonia < 10L , Total Creatine Kinase 111, Pro-B-Type Natriuretic Peptide 546H, Triglycerides Level 99, Cholesterol Level 204H, LDL Cholesterol 118H, HDL Cholesterol 76H, Cholesterol/HDL Ratio 2.7L, Vitamin B12 Level 827, Folate 18.0, Thyroid Stimulating Hormone (TSH) 3.324 Height (Feet): 4 Height (Inches): 10.00 Weight (Pounds): 130 General Appearance: no apparent distress, other - non verbal Neck: limited range of motion Cardiovascular: tachycardia Respiratory/Chest: decreased breath sounds Abdomen: soft Extremities: other - mild contractors Ashok Ann MD Oct 19, 2018 10:51
[2018-10-19 11:09] VITALS: BP 170/82
[2018-10-19] MEDS: Nitroglycerin 2% oint pkt TOPIC SCH ×2 (11:28→17:15)
[2018-10-19 16:08] VITALS: BP 127/103
--- NOTE | 2018-10-19 18:56 | NUR ---
HAND-OFF: Report given to JASON KC.
--- NOTE | 2018-10-19 19:15 | NUR ---
NURSE NOTES: Pt received from DE Arnett, currently sleeping, arousable to shaking. No s/s of acute distressa t this time. Seizure precautions implemented - suction at bedside, side rails padded. IV site asymptomatic and patent. Bed alarm on. Bed in lowest position, call light and belongings within reach.
--- NOTE | 2018-10-19 19:25 | NUR ---
NURSE NOTES: Left message with Goyo (glass technician) to follow up on pt's EEG results and test. Currently awaiting call back.
[2018-10-19 20:00] VITALS: BP 141/3
--- NOTE | 2018-10-19 23:30 | Consultation ---
DATE OF CONSULTATION: 10/19/2018 INFECTIOUS DISEASES CONSULTATION CONSULTING PHYSICIAN: Landon Pagan M.D. PRIMARY ATTENDING PHYSICIAN: Carlos Green M.D. REASON FOR CONSULTATION: Urinary tract infection and encephalopathy. HISTORY OF PRESENT ILLNESS: This is a 73-year-old female who is a prison resident admitted with altered mental status, became less responsive, likely had seizure activity. PAST MEDICAL HISTORY: Significant for hypertension, diverticulosis, Alzheimer, major depressive disorder, has a history of cataract surgery, osteoporosis with history of left femur fracture, atherosclerosis of aorta. ALLERGIES: Allergic to LIANG inhibitor. MEDICATIONS: , hydralazine, Keppra, Tylenol, famotidine, heparin, Zosyn, SOCIAL HISTORY: intermediate resident. No other history is obtainable by the patient. CODE STATUS: DNR. PHYSICAL EXAMINATION: VITAL SIGNS: Temperature 98.8, maximal temperature is 99.8, blood pressure elevated, pulse 90. GENERAL APPEARANCE: Seems to be awake and alert. HEENT: Head and neck, pink conjunctiva. HEART: Normal rate. LUNGS: Clear. ABDOMEN: Soft, nontender. EXTREMITIES: No edema. NEUROLOGIC: Unresponsive. LABORATORY AND DIAGNOSTIC DATA: WBC today is 11.9 coming down from 21.5, hemoglobin 16.8, hematocrit 49.7, platelets 211. Sodium 142, potassium 4.3, chloride 101, bicarbonate 22, BUN 11, creatinine 0.9, glucose 147. Albumin is 3. Urine toxicology was negative. UA was positive for wbc's of 15 to 20, leukocyte esterase 2+. Chest x-ray was negative. CT scan of the head was also negative for acute intracranial bleeding or mass effect, showed chronic and age-related changes. IMPRESSION: 1. Pyuria, may have UTI. 2. Encephalopathy. 3. Altered mental status. 4. Dementia. 5. Major depressive disorder. 6. Hypertension. RECOMMENDATION: Continue IV Zosyn. We will discuss the case with Neurology. At the end of my exam, I thank Dr. Green, for involving me in the care of this patient. Landon Pagan M.D. DR: Richard JOB#: [id number] CC: ANNMARIE
[2018-10-20] VITALS: BP 140/84
--- NOTE | 2018-10-20 03:00 | History and Physical Report ---
DATE OF ADMISSION: 10/18/2018 HISTORY OF PRESENT ILLNESS: The patient is admitted for altered mental status. The patient came via 911 because of lethargy and difficulty arousing. The patient is very lethargic and grimaces to deep stimuli. The patient is having intermittent fevers. Cannot get any history from the patient. The patient is admitted for sepsis and altered mental status. PAST MEDICAL HISTORY: History of humerus fracture, history of head injury, history of seizure, history of encephalopathy, history of hypertension, hyperlipidemia, constipation, vitamin D deficiency, and history of diverticulosis. PAST SURGICAL HISTORY: Unable to obtain. MEDICATIONS: Amlodipine, vitamin C, aspirin, Lipitor, bisacodyl, vitamin D, Colace, and multivitamin. ALLERGIES: LIANG inhibitors. FAMILY HISTORY: Unable to obtain. SOCIAL HISTORY: Unable to obtain. REVIEW OF SYSTEMS: Unable to obtain. The patient is lethargic. PHYSICAL EXAMINATION: VITAL SIGNS: Temperature 98.8, pulse is 90, and blood pressure 120/82. HEENT: PERRLA. NECK: Supple. No lymphadenopathy. CHEST: Clear to auscultation. CARDIOVASCULAR: Regular rate and rhythm. ABDOMEN: Positive bowel sounds. Nontender. EXTREMITIES: No edema. She does have lower extremity deformity in the right lower extremity and grimaces to noxious stimuli. lethargic than the baseline. LABORATORY DATA: WBC of 21.9, hemoglobin 16.3, and platelets of 266. Sodium 145, potassium 3.3, BUN of 13 and creatinine 0.9. ASSESSMENT: 1. Altered mental status. 2. intermittent fevers. 3. Hypokalemia. 4. Leukocytosis. 5. Sepsis. 6. Electrolyte imbalance. PLAN: I have asked Dr. Chappell, the neurologist, Dr. Pagan, and Dr. Ann to see the patient for the above-mentioned diagnoses and treatment. I also will be to the neurologist as well as the Infectious Disease. Low potassium for treatment per Dr. Ann. Antibiotics per Dr. Landon Pagan. We need to find out the sources of sepsis. Carlos Green M.D. DR: YANET JOB#: [id number] CC:
[2018-10-20 04:00] VITALS: BP 143/63
[2018-10-20] MEDS: Piperacillin/Tazobactam 3.375 GM in NS 110 ML IVPB SCH ×3 (05:43→22:25)
[2018-10-20] MEDS: Nitroglycerin 2% oint pkt TOPIC SCH ×3 (05:43→18:05)
--- NOTE | 2018-10-20 07:38 | NUR ---
HAND-OFF: Report given to DE Mercer.
--- NOTE | 2018-10-20 07:40 | NUR ---
NURSE NOTES: Received patient from DE Hinson in bed, open eyes spontaneously, lethargic and sleepy. No s/s of respiratory distress on discomfort. IV is intact and patent with fluids and meds running. No s/s of seizures noted. Bed is in lowest position with bedside rails padded, brakes engaged for safety. Call light is within reach. Will continue with the plan of care.
[2018-10-20 08:00] VITALS: BP 166/84
[2018-10-20] MEDS: levETIRAcetam 1,000mg/NS100ml 100 ML IVPB SCH ×2 (09:19→20:27)
[2018-10-20] MEDS: Heparin 5000 units/ml inj SUBQ SCH ×2 (09:20→20:33)
--- NOTE | 2018-10-20 10:22 | Infectious Diseases Prog Note ---
Assessment/Plan Assessment/Plan A: 1. Pyuria, may have UTI. 2. Encephalopathy. 3. Altered mental status. 4. Dementia. 5. Major depressive disorder. 6. Hypertension. RECOMMENDATION: Continue IV Zosyn, Add IV Acyclovir Subjective ROS Limited/Unobtainable: Yes Constitutional: Reports: no symptoms Allergies: Coded Allergies: LIANG INHIBITORS (Verified Allergy, Unknown, 11/14/16) Objective Vital Signs Last 24 Hour Vital Signs Date Time Temp Pulse Resp B/P (MAP) Pulse Ox O2 Delivery O2 Flow Rate FiO2 10/20/18 05:43 143/63 10/20/18 04:00 97.6 66 17 143/63 (89) 96 10/20/18 04:00 77 10/20/18 00:00 98.5 97 18 140/84 (102) 96 10/20/18 00:00 77 10/19/18 21:00 Room Air Room Air 10/19/18 20:00 98.0 96 18 141/3 (49) 96 10/19/18 20:00 92 10/19/18 17:15 127/103 10/19/18 16:08 98.7 105 19 127/103 (111) 96 10/19/18 16:08 102 10/19/18 12:00 97 10/19/18 11:28 170/82 10/19/18 11:09 98.8 90 19 170/82 (111) 96 Height (Feet): 4 Height (Inches): 10.00 Weight (Pounds): 124 General Appearance: no acute distress HEENT: mucous membranes moist Respiratory/Chest: lungs clear Cardiovascular: normal rate Abdomen: soft, non tender Extremities: no edema Neurologic/Psychiatric: other - lethargic Microbiology Date/Time Source Procedure Growth Status 10/18/18 13:40 Blood Blood Culture - Preliminary NO GROWTH AFTER 24 HOURS Resulted 10/18/18 13:25 Blood Blood Culture - Preliminary NO GROWTH AFTER 24 HOURS Resulted 10/18/18 15:50 Urine,Clean Catch Urine Culture - Preliminary Streptococcus Species Resulted Current Medications Medications (Trade) Dose Ordered Sig/Román Route PRN Reason Start Time Stop Time Status Last Admin Dose Admin Acetaminophen (Tylenol) 500 mg Q4H PRN ORAL Mild Pain/Temp > 100.5 10/18/18 17:15 11/17/18 17:14 Acetaminophen (Tylenol) 650 mg Q4H PRN RECTAL Mild Pain/Temp > 100.5 10/19/18 01:00 11/18/18 00:59 Dextrose/ Electrolytes 1,000 ml @ 75 mls/hr [id number] IV 10/18/18 19:30 11/17/18 19:29 10/19/18 21:29 Famotidine (Pepcid I.v.) 20 mg Q12HR IVP 10/18/18 21:00 11/17/18 20:59 10/20/18 09:19 Heparin Sodium (Porcine) (Heparin 5000 units/ml) 5,000 units EVERY 12 HOURS SUBQ 10/18/18 21:00 11/17/18 20:59 10/20/18 09:20 Hydralazine HCl (Apresoline) 10 mg Q4H PRN IV bp over 160 syst 10/19/18 09:15 11/18/18 09:14 Levetiracetam 100 ml @ 400 mls/hr Q12HR IVPB 10/19/18 09:00 11/18/18 08:59 10/20/18 09:19 Lorazepam (Ativan 2mg/ml 1ml) 2 mg Q4H PRN IV For Seizures 10/18/18 19:00 10/25/18 18:59 Nitroglycerin (Nitro-Bid) 1 inch TID@0600,1200,1800 TOPIC 10/19/18 12:00 11/18/18 11:59 10/20/18 05:43 Piperacillin Sod/ Tazobactam Sod 3.375 gm/Sodium Chloride 110 ml @ 27.5 mls/hr EVERY 8 HOURS IVPB 10/18/18 20:00 10/23/18 19:59 10/20/18 05:43 Landon Pagan MD Oct 20, 2018 10:22
[2018-10-20 12:00] VITALS: BP 140/74
[2018-10-20] MEDS: Acyclovir 500 MG in D5W 110 ML IV SCH ×2 (12:23→20:31)
[2018-10-20] MEDS: D5 1/2NS w/KCl 20mEq 1,000 ML IV SCH ×2 (12:24→15:10)
--- NOTE | 2018-10-20 13:37 | NUR ---
RD ASSESSMENT & RECOMMENDATIONS SEE CARE ACTIVITY FOR COMPLETE ASSESSMENT DAILY ESTIMATED NEEDS: Needs based on Cardiac, 56kg 25-30 kcals/kg [id number] total kcals 1-1.2 g protein/kg 56-67 g total protein 25-30 mL/kg 0365-1622 total fluid mLs NUTRITION DIAGNOSIS: Chewing / swallowing difficulty r/t decreased alertness, h/o seizure activity as evidenced by flat lock machine operator recs for NPO at this andrade, pt w/ h/o head injury. CURRENT DIET: NPO PO DIET RECOMMENDATIONS: [place]/ regular diet (texture per SCRAP COLLECTOR) ADDITIONAL RECOMMENDATIONS: 1) Obtain a calibrated bed scale wt d/t conflicting wts: Bed scale wt: 134# vs EMR wt: 124# 2) Monitor for po readiness 3) Hypoglycemics w/ diet order 4) Consult RD if non oral feeds are a part of POC 5) check lytes daily w/ NPO status
--- NOTE | 2018-10-20 14:26 | Consultation ---
History of Present Illness General Date patient seen: Oct 20, 2018 Chief Complaint: Seizure Present Illness Allergies: Coded Allergies: LIANG INHIBITORS (Verified Allergy, Unknown, 11/14/16) Medication History Scheduled Amlodipine Besylate (Norvasc), 10 MG ORAL DAILY, (Reported) Amlodipine Besylate (Norvasc), 10 MG ORAL DAILY, (Reported) Ascorbic Acid (Vitamin C), 500 MG ORAL DAILY, (Reported) Aspirin (Aspirin EC), 81 MG ORAL DAILY, (Reported) Atorvastatin Calcium* (Lipitor*), 20 MG ORAL BEDTIME, (Reported) Atorvastatin Calcium* (Atorvastatin Calcium*), 20 MG ORAL BEDTIME, (Reported) Docusate Sodium* (Colace*), 100 MG ORAL DAILY, (Reported) Magnesium Hydroxide* (Milk Of Magnesia*), 30 ML ORAL DAILY, (Reported) Multivitamin (Multi Vitamin Daily), 1 TAB ORAL DAILY, (Reported) Scheduled PRN Acetaminophen (Tylenol), 325 MG ORAL Q6H PRN for Prn Pain/Headache/Temp > 101, ( Reported) Acetaminophen With Codeine (T#3) (Tylenol #3 Tab*), 1 TAB ORAL Q8H PRN for For Pain Melatonin (Melatonin), 3 MG ORAL BEDTIME PRN for Insomnia, (Reported) Miscellaneous Medications Acetaminophen (Tylenol), 500 MG PO, (Reported) Amino Acids/Protein Hydrolys (Pro-Stat 64 Liquid), 30 ML PO, (Reported) Bisacodyl (Dulcolax), 10 MG RC, (Reported) Calcium Carbonate/Vitamin D3 (Oyster Shell 500 Mg + Vit D Tb), 1 EACH PO, ( Reported) Cholecalciferol (Vitamin D3) (Vitamin D3), 400 UNIT PO, (Reported) Na Phos,M-B/Na Phos,Di-Ba (Fleet Enema), 133 ML RC, (Reported) Patient History Healthcare decision maker Resuscitation status Do Not Resuscitate Advanced Directive on File No Physical Exam Last 24 Hour Vital Signs Date Time Temp Pulse Resp B/P (MAP) Pulse Ox O2 Delivery O2 Flow Rate FiO2 10/20/18 12:24 140/74 10/20/18 12:00 59 10/20/18 12:00 98.6 59 18 140/74 (96) 98 10/20/18 09:00 Room Air Room Air 10/20/18 08:00 79 2/13/19 08:00 98.8 79 18 166/84 (111) 98 10/20/18 05:43 143/63 10/20/18 04:00 97.6 66 17 143/63 (89) 96 10/20/18 04:00 77 10/20/18 00:00 98.5 97 18 140/84 (102) 96 10/20/18 00:00 77 10/19/18 21:00 Room Air Room Air 10/19/18 20:00 98.0 96 18 141/3 (49) 96 10/19/18 20:00 92 10/19/18 17:15 127/103 10/19/18 16:08 98.7 105 19 127/103 (111) 96 10/19/18 16:08 102 Intake and Output 10/19/18 10/20/18 19:00 07:00 Intake Total 1110.0 ml Output Total 450 ml 500 ml Balance 660.0 ml -500 ml Intake IV Total 1110.0 ml Output Urine Total 450 ml 500 ml Height (Feet): 4 Height (Inches): 10.00 Weight (Pounds): 124 Medications Current Medications Medications (Trade) Dose Ordered Sig/Román Route PRN Reason Start Time Stop Time Status Last Admin Dose Admin Acetaminophen (Tylenol) 500 mg Q4H PRN ORAL Mild Pain/Temp > 100.5 10/18/18 17:15 11/17/18 17:14 Acetaminophen (Tylenol) 650 mg Q4H PRN RECTAL Mild Pain/Temp > 100.5 10/19/18 01:00 11/18/18 00:59 Acyclovir 500 mg/ Dextrose 110 ml @ 110 mls/hr Q12HR IV 10/20/18 12:00 11/19/18 11:59 10/20/18 12:23 Dextrose/ Electrolytes 1,000 ml @ 75 mls/hr [id number] IV 10/18/18 19:30 11/17/18 19:29 10/20/18 12:24 Famotidine (Pepcid I.v.) 20 mg Q12HR IVP 10/18/18 21:00 11/17/18 20:59 10/20/18 09:19 Heparin Sodium (Porcine) (Heparin 5000 units/ml) 5,000 units EVERY 12 HOURS SUBQ 10/18/18 21:00 11/17/18 20:59 10/20/18 09:20 Hydralazine HCl (Apresoline) 10 mg Q4H PRN IV bp over 160 syst 10/19/18 09:15 11/18/18 09:14 Levetiracetam 100 ml @ 400 mls/hr Q12HR IVPB 10/19/18 09:00 11/18/18 08:59 10/20/18 09:19 Lorazepam (Ativan 2mg/ml 1ml) 2 mg Q4H PRN IV For Seizures 10/18/18 19:00 10/25/18 18:59 Nitroglycerin (Nitro-Bid) 1 inch TID@0600,1200,1800 TOPIC 10/19/18 12:00 11/18/18 11:59 10/20/18 12:24 Piperacillin Sod/ Tazobactam Sod 3.375 gm/Sodium Chloride 110 ml @ 27.5 mls/hr EVERY 8 HOURS IVPB 10/18/18 20:00 10/23/18 19:59 10/20/18 05:43 Assessment/Plan Assessment/Plan Hematology Consult REQ MD: Peter RFC: Hyperproteinemia and erythrocytosis DOS: 10/19/18 HPI Patient is a 72-year-old female brought in by EMS after increased altered mental status. [facility]. Patient had reportedly been having some witnessed seizure-like activity. Patient had been noted to be chronically debilitated. Patient was sent in for increased confusion.History is limited by patient's mental status. Noted to have a high hgb and heme was consulted. Coded Allergies: LIANG INHIBITORS (Verified Allergy, Unknown, 11/14/16) Past Medical History: see triage record Reviewed Nursing Documentation: PMH: Agreed; PSxH: Agreed Hx Hypertension: Yes Hx Gastrointestinal Problems: Yes - Diverticulosis Review of Systems All Other Systems: limited - by mental status ER Physical Exam - General Physical Exam Vital Signs Last 24 Hour Vital Signs Date Time Temp Pulse Resp B/P (MAP) Pulse Ox O2 Delivery O2 Flow Rate FiO2 10/20/18 12:24 140/74 10/20/18 12:00 59 10/20/18 12:00 98.6 59 18 140/74 (96) 98 10/20/18 09:00 Room Air Room Air 10/20/18 08:00 79 10/20/18 08:00 98.8 79 18 166/84 (111) 98 10/20/18 05:43 143/63 10/20/18 04:00 97.6 66 17 143/63 (89) 96 10/20/18 04:00 77 10/20/18 00:00 98.5 97 18 140/84 (102) 96 10/20/18 00:00 77 10/19/18 21:00 Room Air Room Air 10/19/18 20:00 98.0 96 18 141/3 (49) 96 10/19/18 20:00 92 10/19/18 17:15 127/103 10/19/18 16:08 98.7 105 19 127/103 (111) 96 10/19/18 16:08 102 Sp02 EP Interpretation: reviewed General Appearance: alert, thin, Chronically Ill Head: atraumatic ENT: normal ENT inspection, hearing grossly normal, normal voice Neck: no bony tend Respiratory: normal inspection, no cwr Gastrointestinal: soft, no guarding, no hernia Genitourinary: no CVA tenderness Musculoskeletal: normal inspection, back normal, normal range of motion Neurologic: motor weakness Psychiatric: depressed affect Skin: normal inspection, normal color, no rash Labs: noted Imaging: reviewed Assessment and Recs: # Erythrocytosis - multiple etiologies, requires higher oxygen demand --> jak2 not required at this time --> give ivf to see if patient potentially dehydrated --> us of the abd can be withheld at this time --> no smoking in future # Hyperproteinemia, elevated protein albumin ratio --> evaluate with spep study --> no sig evidence of kajal, anemia, bony lesions, unlikely myeloma # Altered mental status --> per neuro management --> may need rehab in future # Epileptic seizure, generalized --> as per neuro Greatly appreciate consultation! Charles Gr MD Oct 20, 2018 14:26
--- NOTE | 2018-10-20 14:44 | Nephrology Progress Note ---
Assessment/Plan Problem List: (1) Epileptic seizure, generalized (2) UTI (urinary tract infection) (3) Encephalopathy Assessment Acute Encephalopathy UTI Sepsis, leukocytosis Sz Plan no labs today Lagunas IV fluids Correct lytes antibiotics, Zosyn NPO , St eval Gastric support, pepcid anti Sz meds monitor neuro status Subjective ROS Limited/Unobtainable: No Objective Objective Last 24 Hour Vital Signs Date Time Temp Pulse Resp B/P (MAP) Pulse Ox O2 Delivery O2 Flow Rate FiO2 10/20/18 12:24 140/74 10/20/18 12:00 59 10/20/18 12:00 98.6 59 18 140/74 (96) 98 10/20/18 09:00 Room Air Room Air 10/20/18 08:00 79 10/20/18 08:00 98.8 79 18 166/84 (111) 98 10/20/18 05:43 143/63 10/20/18 04:00 97.6 66 17 143/63 (89) 96 10/20/18 04:00 77 10/20/18 00:00 98.5 97 18 140/84 (102) 96 10/20/18 00:00 77 10/19/18 21:00 Room Air Room Air 10/19/18 20:00 98.0 96 18 141/3 (49) 96 10/19/18 20:00 92 10/19/18 17:15 127/103 10/19/18 16:08 98.7 105 19 127/103 (111) 96 10/19/18 16:08 102 Intake and Output 10/19/18 10/20/18 18:59 06:59 Intake Total 1110.0 ml Output Total 450 ml 500 ml Balance 660.0 ml -500 ml Intake IV Total 1110.0 ml Output Urine Total 450 ml 500 ml Height (Feet): 4 Height (Inches): 10.00 Weight (Pounds): 124 General Appearance: no apparent distress Cardiovascular: normal rate Respiratory/Chest: decreased breath sounds Abdomen: soft Neurologic: other - MS not changed Objective PE NO CHANGE Ashok Ann MD Oct 20, 2018 14:44
--- NOTE | 2018-10-20 15:43 | NUR ---
ST NOTE:BEDSIDE SWALLOW EVAL RECEIVED BEDSIDE SWALLOW EVAL ORDER CHART REVIEWED PRIOR THE EVALUATION PT IS A 73-YEAR-OLD PASHTO-SPEAKING FEMALE WHO WAS ADMITTED DUE TO AMS. SEIZURE-LIKE ACTIVITY X 2(ALSO IN ER) DYSPHAGIA RISK FACTORS: SEIZURE X 2, ALZHEIMER'S DEMENTIA, H/O DYSPHAGIA, PSYCH(DEPRESSIVE DISORDER), ARTERIAL SCLEROSIS OF THE AORTA. PLOF: PT RESIDES AT SNF. PER CHART, PT WAS ON REGULAR WITH THIN LIQUIDS DIET(SMALL PORTION) PER PT'S POLST: DNR, COMFORT MEASURE ONLY AND NO ARTIFICIAL MEANS OF NUTRITION, INCLUDING FEEDING TUBES. CURRENT STATUS: MULTIPLE ATTEMPTS IN AM AND PM. PT LETHARGIC IN AM AND EARLY AFTERNOON. RETURNED IN MID-AFTERNOON. SAT PT UPRIGHT POSITION. PT OPENED HER EYES, MUMBLING, UNABLE TO FOLLOW DIRECTIONS. VOICE IS CLEAR. 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 PT HAS GOOD DENTITION, PT HELD THE BOLUS IN THE MOUTH FOR ABOUT (10SECS) AND SWALLOW IT DOWN, NO OVERT S/S OF ASPIRATION. ORAL CARE AFTERWARD. HAS RISK FOR SILENT ASPIRATION. RECOMMENDATIONS: 1. CONTINUE NPO FOR NOW. 2. PO TRIALS TOMORROW AND/OR VIDEOSWALLOW STUDY TO R/O ANY ASPIRATION RISK. 3. SKILLED ST SERVICE TO FOLLOW UP. D/W RNDAVID AND THE STAFF
[2018-10-20 16:00] VITALS: BP 154/71
--- NOTE | 2018-10-20 17:43 | General Progress Note ---
Assessment/Plan Assessment/Plan Assessment and Recs: # Erythrocytosis - multiple etiologies, requires higher oxygen demand --> jak2 not required at this time --> give ivf to see if patient potentially dehydrated --> us of the abd can be withheld at this time --> no smoking in future # Hyperproteinemia, elevated protein albumin ratio --> evaluate with spep study --> no sig evidence of kajal, anemia, bony lesions, unlikely myeloma # Altered mental status --> per neuro management --> may need rehab in future # Epileptic seizure, generalized --> as per neuro Greatly appreciate consultation! Subjective Constitutional: Denies: no symptoms, chills, diaphoresis, fever, malaise, weakness, other HEENT: Denies: no symptoms, eye pain, blurred vision, tearing, double vision, ear pain, ear discharge, nose pain, nose congestion, throat pain, throat swelling, mouth pain, mouth swelling, other Cardiovascular: Denies: no symptoms, chest pain, edema, irregular heart rate, lightheadedness, palpitations, syncope, other Respiratory: Denies: no symptoms, cough, orthopnea, shortness of breath, SOB with excertion, SOB at rest, sputum, stridor, wheezing, other Gastrointestinal/Abdominal: Denies: no symptoms, abdomen distended, abdominal pain, black stools, tarry stools, blood in stool, constipated, diarrhea, difficulty swallowing, nausea, poor appetite, poor fluid intake, rectal bleeding , vomiting, other Genitourinary: Denies: no symptoms, burning, discharge, frequency, flank pain, hematuria, incontinence, pain, urgency, other Neurologic/Psychiatric: Denies: no symptoms, anxiety, depressed, emotional problems, headache, numbness, paresthesia, pre-existing deficit, seizure, tingling, tremors, weakness, other Endocrine: Denies: no symptoms, excessive sweating, flushing, intolerance to cold, intolerance to heat, increased hunger, increased thirst, increased urine, unexplained weight gain, unexplained weight loss, other Hematologic/Lymphatic: Denies: no symptoms, anemia, easy bleeding, easy bruising, other Allergies: Coded Allergies: LIANG INHIBITORS (Verified Allergy, Unknown, 11/14/16) Subjective 10/20: seen by bedside, awake, comfortable, no acute events. Objective Last 24 Hour Vital Signs Date Time Temp Pulse Resp B/P (MAP) Pulse Ox O2 Delivery O2 Flow Rate FiO2 10/20/18 16:00 90 10/20/18 16:00 97.9 90 18 154/71 (98) 97 10/20/18 12:24 140/74 10/20/18 12:00 59 10/20/18 12:00 98.6 59 18 140/74 (96) 98 10/20/18 09:00 Room Air Room Air 10/20/18 08:00 79 10/20/18 08:00 98.8 79 18 166/84 (111) 98 10/20/18 05:43 143/63 10/20/18 04:00 97.6 66 17 143/63 (89) 96 10/20/18 04:00 77 10/20/18 00:00 98.5 97 18 140/84 (102) 96 10/20/18 00:00 77 10/19/18 21:00 Room Air Room Air 10/19/18 20:00 98.0 96 18 141/3 (49) 96 10/19/18 20:00 92 Intake and Output 10/19/18 10/20/18 18:59 06:59 Intake Total 1110.0 ml Output Total 450 ml 500 ml Balance 660.0 ml -500 ml Intake IV Total 1110.0 ml Output Urine Total 450 ml 500 ml Laboratory Tests 10/20/18 15:15: C-Reactive Protein, Quantitative 14.9H, Total Protein (PEP) [Pending], Albumin ( PEP) [Pending], Globulin (PEP) [Pending], Albumin/Globulin Ratio [Pending], Gxyje-8-Ktxzarrsp [Pending], Vrxop-2-Kpziphmbz [Pending], Beta Globulins [ Pending], Beta Gamma Globulin [Pending], PEP Abnormal Protein Bands [Pending], Protein Electrophoresis Interpret [Pending] Height (Feet): 4 Height (Inches): 10.00 Weight (Pounds): 124 Objective Sp02 EP Interpretation: reviewed General Appearance: alert, thin, Chronically Ill Head: atraumatic ENT: normal ENT inspection, hearing grossly normal, normal voice Neck: no bony tend Respiratory: normal inspection, no cwr Gastrointestinal: soft, no guarding, no hernia Genitourinary: no CVA tenderness Musculoskeletal: normal inspection, back normal, normal range of motion Neurologic: motor weakness Psychiatric: depressed affect Skin: normal inspection, normal color, no rash Charles Gr MD Oct 20, 2018 17:43
--- NOTE | 2018-10-20 19:11 | NUR ---
CASE MANAGEMENT: REVIEW SI: AMS . ACUTE ENCEPHALOPATHY . SEIZURE T 97.6 HR 59 RR 18 BP 166/84 SAT 98% ROOM AIR WBC 11.9 H/H 16.8/49.7 IS: D5 1/2 NS w/KCl 20mEq IVF @50ML/HR ACYCLOVIR IV Q12HR KEPPRA IV Q12HR ZOSYN IV Q8HR TELEMETRY STATUS DCP: PATIENT IS FROM [facility] CONV PLAN: VIDEO SWALLOW STUDY
--- NOTE | 2018-10-20 19:31 | NUR ---
HAND-OFF: Report given to Marissa KC. Endorsed plan of care. Patient is in stable condition.
--- NOTE | 2018-10-20 19:44 | NUR ---
NURSE NOTES: Report received from DE Mercer. Pt is lying comfortably in semi fowlers with no signs of distress. Pt is A+Ox0 showing no signs of pain/ SOB. Pt is able to be aroused by shaking. IV site is patent, intact, and running fluids at prescribed rate. Respirations are even and unlabored on room air. Bed is at lowest position, brakes engaged, siderails x2, bed alarm on, and call light within reach. Pt is in stable condition at this time; will continue to monitor.
[2018-10-20 20:00] VITALS: BP 134/78
--- NOTE | 2018-10-20 21:00 | Electroencephalogram ---
DATE OF PROCEDURE: 10/19/2018 REQUESTING PHYSICIANS: Carlos Green M.D. & Armand Chappell M.D> DATE OF TRACIN10/19/2018 HISTORY: This EEG was performed on a 73-year-old lady with a history of an altered mental state following a seizure on 10/18/2018. The purpose of this EEG was to evaluate the patient for the degree and type of cerebral dysfunction and to exclude ongoing ictal or interictal phenomena. TECHNICAL NOTE: This EEG was performed on a [employer] with electrodes placed on the scalp according to the International 10-20 system. Navhw-do-fcqkj and vdbys-oo-tql montages were used. The EEG was technically satisfactory and was performed while the patient was in a poorly responsive state. OBSERVATIONS: In the poorly responsive state, the background activity consisted of low amplitude, slow activity in the delta and theta range. Triphasic waveforms with an anterior to posterior gradient were also seen throughout the tracing. No significant change in the EEG background was noted when the patient was stimulated. No definite focal abnormalities or epileptiform discharges were seen. IMPRESSION: This is an abnormal EEG characterized by low amplitude slow activity in the delta and theta range with intermixed triphasic waveforms. COMMENT: This study is consistent with an encephalopathy of a moderate degree most probably with a toxic metabolic component as evidenced by the triphasic waveforms. Clinical correlation is recommended. Alistair Tam M.D., M.S.P.H. DR: Julio César JOB#: [id number] MTDD
--- NOTE | 2018-10-20 21:15 | General Progress Note ---
Assessment/Plan Problem List: (1) Altered mental status ICD Codes: R41.82 - Altered mental status, unspecified SNOMED: 123743127 (2) UTI (urinary tract infection) ICD Codes: N39.0 - Urinary tract infection, site not specified SNOMED: 37418829 (3) Encephalopathy ICD Codes: G93.40 - Encephalopathy, unspecified SNOMED: 13898228 Status: unchanged Assessment/Plan ams lethargic sepsis intermittent fever abx and LP per id Subjective Allergies: Coded Allergies: LIANG INHIBITORS (Verified Allergy, Unknown, 11/14/16) Subjective still lethargic and confused Objective Last 24 Hour Vital Signs Date Time Temp Pulse Resp B/P (MAP) Pulse Ox O2 Delivery O2 Flow Rate FiO2 10/20/18 18:05 154/71 10/20/18 16:00 90 10/20/18 16:00 97.9 90 18 154/71 (98) 97 10/20/18 12:24 140/74 10/20/18 12:00 59 10/20/18 12:00 98.6 59 18 140/74 (96) 98 10/20/18 09:00 Room Air Room Air 10/20/18 08:00 79 10/20/18 08:00 98.8 79 18 166/84 (111) 98 10/20/18 05:43 143/63 10/20/18 04:00 97.6 66 17 143/63 (89) 96 10/20/18 04:00 77 10/20/18 00:00 98.5 97 18 140/84 (102) 96 10/20/18 00:00 77 Intake and Output 10/19/18 10/20/18 18:59 06:59 Intake Total 1110.0 ml Output Total 450 ml 500 ml Balance 660.0 ml -500 ml Intake IV Total 1110.0 ml Output Urine Total 450 ml 500 ml Laboratory Tests 10/20/18 15:15: C-Reactive Protein, Quantitative 14.9H, Total Protein (PEP) [Pending], Albumin ( PEP) [Pending], Globulin (PEP) [Pending], Albumin/Globulin Ratio [Pending], Uytve-9-Crffsiecs [Pending], Qlgwc-5-Wnjekvkdl [Pending], Beta Globulins [ Pending], Beta Gamma Globulin [Pending], PEP Abnormal Protein Bands [Pending], Protein Electrophoresis Interpret [Pending] Height (Feet): 4 Height (Inches): 10.00 Weight (Pounds): 124 General Appearance: lethargic, confused Cardiovascular: normal rate Respiratory/Chest: lungs clear Abdomen: soft Carlos Green MD Oct 20, 2018 21:15
[2018-10-21] VITALS: BP 137/84
[2018-10-21 04:00] VITALS: BP 150/72
[2018-10-21] MEDS: Piperacillin/Tazobactam 3.375 GM in NS 110 ML IVPB SCH ×3 (05:38→21:00)
[2018-10-21] MEDS: Nitroglycerin 2% oint pkt TOPIC SCH ×3 (05:38→17:35)
[2018-10-21 06:46] LABS: BASOPHILS % (AUTO) 0.7 % (0.0-2.0); HEMATOCRIT 37.5 % (37.0-47.0); HEMOGLOBIN 12.4 G/DL (12.0-16.0); LYMPHOCYTES % (AUTO) 18.5 % (20.0-45.0); MEAN CORPUSCULAR VOLUME 86 FL (80-99); MONOCYTES % (AUTO) 8.8 % (1.0-10.0); PLATELET COUNT 170 K/UL (150-450); RED BLOOD COUNT 4.34 M/UL (4.20-5.40); RED CELL DISTRIBUTION WIDTH 12.5 % (11.6-14.8); WHITE BLOOD COUNT 7.2 K/UL (4.8-10.8)
--- NOTE | 2018-10-21 07:01 | NUR ---
HAND-OFF: Report given to DE Mercer. Pt is in stable conditon; plan of care endorsed.
[2018-10-21 07:08] LABS: AMMONIA 29 umol/L (11-32)
[2018-10-21 07:20] LABS: ALANINE AMINOTRANSFERASE 34 U/L (12-78); ALBUMIN 2.3 G/DL (3.4-5.0); ALBUMIN/GLOBULIN RATIO 0.6 (1.0-2.7); ALKALINE PHOSPHATASE 84 U/L (46-116); ANION GAP 10 mmol/L (5-15); ASPARTATE AMINO TRANSFERASE 29 U/L (15-37); BILIRUBIN,TOTAL 0.9 MG/DL (0.2-1.0); BLOOD UREA NITROGEN 6 mg/dL (7-18); CARBON DIOXIDE 22 MMOL/L (21-32); CHLORIDE 112 MMOL/L (98-107); CREATININE 0.9 MG/DL (0.55-1.30); GAMMA GLUTAMYL TRANSPEPTIDASE 21 U/L (5-85); PHOSPHORUS 2.6 MG/DL (2.5-4.9); POTASSIUM 3.2 MMOL/L (3.5-5.1); SODIUM 144 MMOL/L (136-145)
--- NOTE | 2018-10-21 07:23 | NUR ---
NURSE NOTES: Received patient from DE Ann in bed, open eyes spontaneously, lethargic and sleepy. No s/s of respiratory distress on discomfort. IV is intact and patent. No s/s of seizures noted. Bed is in lowest position with bedside rails padded, brakes engaged for safety. Call light is within reach. Will continue with the plan of care.
[2018-10-21 08:00] VITALS: BP 150/70
[2018-10-21] MEDS: Acyclovir 500 MG in D5W 110 ML IV SCH (09:23)
[2018-10-21] MEDS: Heparin 5000 units/ml inj SUBQ SCH ×2 (09:24→20:59)
[2018-10-21] MEDS: levETIRAcetam 1,000mg/NS100ml 100 ML IVPB SCH (09:39)
--- NOTE | 2018-10-21 10:10 | NUR ---
ST NOTE: RECEIVED TELEPHONE ORDER FROM DR. JAMISON FOR VIDEOSWALLOW STUDY. WILL FOLLOW.
--- NOTE | 2018-10-21 10:43 | NUR ---
NURSE NOTES: Patient is off the unit for video swallow study. Non-administer medications at this time.
--- NOTE | 2018-10-21 10:49 | General Progress Note ---
Assessment/Plan Problem List: (1) Altered mental status ICD Codes: R41.82 - Altered mental status, unspecified SNOMED: 381325645 (2) UTI (urinary tract infection) ICD Codes: N39.0 - Urinary tract infection, site not specified SNOMED: 82146700 (3) Encephalopathy ICD Codes: G93.40 - Encephalopathy, unspecified SNOMED: 51685863 Status: progressing Assessment/Plan more alert less lethargic sepsis intermittent fever st ordered Subjective ROS Limited/Unobtainable: Yes Allergies: Coded Allergies: LIANG INHIBITORS (Verified Allergy, Unknown, 11/14/16) Subjective still lethargic and confused Objective Last 24 Hour Vital Signs Date Time Temp Pulse Resp B/P (MAP) Pulse Ox O2 Delivery O2 Flow Rate FiO2 10/21/18 09:00 Room Air Room Air 10/21/18 08:00 97.2 61 18 150/70 (96) 97 10/21/18 08:00 61 10/21/18 05:38 150/72 10/21/18 04:00 98.5 89 19 150/72 (98) 96 10/21/18 03:26 62 10/21/18 00:00 98.5 92 17 137/84 (101) 98 10/20/18 23:24 97 10/20/18 21:00 Room Air Room Air 10/20/18 20:00 98.9 101 17 134/78 (96) 96 10/20/18 20:00 80 10/20/18 18:05 154/71 10/20/18 16:00 90 10/20/18 16:00 97.9 90 18 154/71 (98) 97 10/20/18 12:24 140/74 10/20/18 12:00 59 10/20/18 12:00 98.6 59 18 140/74 (96) 98 Intake and Output 10/20/18 10/21/18 19:00 07:00 Output Total 1000 ml 600 ml Balance -1000 ml -600 ml Output Urine Total 1000 ml 600 ml Laboratory Tests 10/20/18 15:15: C-Reactive Protein, Quantitative 14.9H, Total Protein (PEP) 6.2, Albumin (PEP) 2.7L, Globulin (PEP) 3.5, Albumin/Globulin Ratio 0.8, Ukpop-4-Dyutevpef 0.4, Urjif-4-Sjuzzuiir 0.8, Beta Globulins 1.0, Beta Gamma Globulin 1.3, PEP Abnormal Protein Bands Not observed, Protein Electrophoresis Interpret Comment 10/21/18 04:45: Albumin/Globulin Ratio 0.6L, White Blood Count 7.2, Red Blood Count 4.34, Hemoglobin 12.4, Hematocrit 37.5, Mean Corpuscular Volume 86, Mean Corpuscular Hemoglobin 28.6, Mean Corpuscular Hemoglobin Concent 33.0, Red Cell Distribution Width 12.5, Platelet Count 170, Mean Platelet Volume 6.1L, Neutrophils (%) (Auto) 70.0, Lymphocytes (%) (Auto) 18.5L, Monocytes (%) (Auto) 8.8, Eosinophils (%) (Auto) 2.0, Basophils (%) (Auto) 0.7, Sodium Level 144, Potassium Level 3.2L, Chloride Level 112H, Carbon Dioxide Level 22, Anion Gap 10 , Blood Urea Nitrogen 6L, Creatinine 0.9, Estimat Glomerular Filtration Rate , Glucose Level 114H, Calcium Level 8.0L, Phosphorus Level 2.6, Magnesium Level 1.9, Total Bilirubin 0.9, Gamma Glutamyl Transpeptidase 21, Aspartate Amino Transf (AST/SGOT) 29, Alanine Aminotransferase (ALT/SGPT) 34, Alkaline Phosphatase 84, Ammonia 29, Pro-B-Type Natriuretic Peptide 407H, Total Protein 6.3L, Albumin 2.3L, Globulin 4.0 Height (Feet): 4 Height (Inches): 10.00 Weight (Pounds): 124 Cardiovascular: normal rate Respiratory/Chest: lungs clear Abdomen: soft Carlos Green MD Oct 21, 2018 10:49
--- NOTE | 2018-10-21 11:25 | Infectious Diseases Prog Note ---
Assessment/Plan Assessment/Plan A: 1. Pyuria, may have UTI. 2. Encephalopathy.toxic-metabolic 3. Altered mental status. 4. Dementia. 5. Major depressive disorder. 6. Hypertension. RECOMMENDATION: Continue IV Zosyn, Discontinue IV Acyclovir Case was D/W Dr Chappell Subjective ROS Limited/Unobtainable: Yes Constitutional: Reports: no symptoms Allergies: Coded Allergies: LIANG INHIBITORS (Verified Allergy, Unknown, 11/14/16) Objective Vital Signs Last 24 Hour Vital Signs Date Time Temp Pulse Resp B/P (MAP) Pulse Ox O2 Delivery O2 Flow Rate FiO2 10/21/18 09:00 Room Air Room Air 10/21/18 08:00 97.2 61 18 150/70 (96) 97 10/21/18 08:00 61 10/21/18 05:38 150/72 10/21/18 04:00 98.5 89 19 150/72 (98) 96 10/21/18 03:26 62 10/21/18 00:00 98.5 92 17 137/84 (101) 98 10/20/18 23:24 97 10/20/18 21:00 Room Air Room Air 10/20/18 20:00 98.9 101 17 134/78 (96) 96 10/20/18 20:00 80 10/20/18 18:05 154/71 10/20/18 16:00 90 10/20/18 16:00 97.9 90 18 154/71 (98) 97 10/20/18 12:24 140/74 10/20/18 12:00 59 10/20/18 12:00 98.6 59 18 140/74 (96) 98 Height (Feet): 4 Height (Inches): 10.00 Weight (Pounds): 124 General Appearance: no acute distress HEENT: mucous membranes moist Respiratory/Chest: lungs clear Cardiovascular: normal rate Abdomen: soft, non tender Extremities: no edema Neurologic/Psychiatric: alert, responsive Microbiology Date/Time Source Procedure Growth Status 10/18/18 13:40 Blood Blood Culture - Preliminary NO GROWTH AFTER 24 HOURS Resulted 10/18/18 13:25 Blood Blood Culture - Preliminary NO GROWTH AFTER 24 HOURS Resulted 10/18/18 15:50 Urine,Clean Catch Urine Culture - Preliminary Streptococcus Species Resulted 10/18/18 13:50 Rectum - Final NO CARBAPENEM-RESISTANT ENTEROBACTERI... Complete 10/18/18 13:50 Rectum VRE Culture - Final NO VANCOMYCIN RESISTANT ENTEROCOCCUS ... Complete Laboratory Tests Test 10/20/18 15:15 10/21/18 04:45 C-Reactive Protein, Quantitative 14.9 mg/dL (0.00-0.90) H Total Protein (PEP) 6.2 g/dL (6.0-8.5) Albumin (PEP) 2.7 g/dL (2.9-4.4) L Globulin (PEP) 3.5 g/dL (2.2-3.9) Albumin/Globulin Ratio 0.8 (0.7-1.7) 0.6 (1.0-2.7) L Gnvav-3-Prheftxzn 0.4 g/dL (0.0-0.4) Mhipj-7-Twvrdbjdv 0.8 g/dL (0.4-1.0) Beta Globulins 1.0 g/dL (0.7-1.3) Beta Gamma Globulin 1.3 g/dL (0.4-1.8) PEP Abnormal Protein Bands Not observed g/dL (Not Protein Electrophoresis Interpret Comment (.) White Blood Count 7.2 K/UL (4.8-10.8) Red Blood Count 4.34 M/UL (4.20-5.40) Hemoglobin 12.4 G/DL (12.0-16.0) Hematocrit 37.5 % (37.0-47.0) Mean Corpuscular Volume 86 FL (80-99) Mean Corpuscular Hemoglobin 28.6 PG (27.0-31.0) Mean Corpuscular Hemoglobin Concent 33.0 G/DL (32.0-36.0) Red Cell Distribution Width 12.5 % (11.6-14.8) Platelet Count 170 K/UL (150-450) Mean Platelet Volume 6.1 FL (6.5-10.1) L Neutrophils (%) (Auto) 70.0 % (45.0-75.0) Lymphocytes (%) (Auto) 18.5 % (20.0-45.0) L Monocytes (%) (Auto) 8.8 % (1.0-10.0) Eosinophils (%) (Auto) 2.0 % (0.0-3.0) Basophils (%) (Auto) 0.7 % (0.0-2.0) Sodium Level 144 MMOL/L (136-145) Potassium Level 3.2 MMOL/L (3.5-5.1) L Chloride Level 112 MMOL/L (98-107) H Carbon Dioxide Level 22 MMOL/L (21-32) Anion Gap 10 mmol/L (5-15) Blood Urea Nitrogen 6 mg/dL (7-18) L Creatinine 0.9 MG/DL (0.55-1.30) Estimat Glomerular Filtration Rate mL/min (>60) Glucose Level 114 MG/DL (74-106) H Calcium Level 8.0 MG/DL (8.5-10.1) L Phosphorus Level 2.6 MG/DL (2.5-4.9) Magnesium Level 1.9 MG/DL (1.8-2.4) Total Bilirubin 0.9 MG/DL (0.2-1.0) Gamma Glutamyl Transpeptidase 21 U/L (5-85) Aspartate Amino Transf (AST/SGOT) 29 U/L (15-37) Alanine Aminotransferase (ALT/SGPT) 34 U/L (12-78) Alkaline Phosphatase 84 U/L (46-116) Ammonia 29 umol/L (11-32) Pro-B-Type Natriuretic Peptide 407 pg/mL (0-125) H Total Protein 6.3 G/DL (6.4-8.2) L Albumin 2.3 G/DL (3.4-5.0) L Globulin 4.0 g/dL Current Medications Medications (Trade) Dose Ordered Sig/Román Route PRN Reason Start Time Stop Time Status Last Admin Dose Admin Acetaminophen (Tylenol) 500 mg Q4H PRN ORAL Mild Pain/Temp > 100.5 10/18/18 17:15 11/17/18 17:14 Acetaminophen (Tylenol) 650 mg Q4H PRN RECTAL Mild Pain/Temp > 100.5 10/19/18 01:00 11/18/18 00:59 Acyclovir 500 mg/ Dextrose 110 ml @ 110 mls/hr Q12HR IV 10/20/18 12:00 11/19/18 11:59 10/21/18 09:23 Dextrose/ Electrolytes 1,000 ml @ 50 mls/hr Q20H IV 10/20/18 14:47 11/19/18 14:46 10/20/18 15:10 Famotidine (Pepcid I.v.) 20 mg Q12HR IVP 10/18/18 21:00 11/17/18 20:59 10/21/18 09:23 Heparin Sodium (Porcine) (Heparin 5000 units/ml) 5,000 units EVERY 12 HOURS SUBQ 10/18/18 21:00 11/17/18 20:59 10/21/18 09:24 Hydralazine HCl (Apresoline) 10 mg Q4H PRN IV bp over 160 syst 10/19/18 09:15 11/18/18 09:14 Levetiracetam 100 ml @ 400 mls/hr Q12HR IVPB 10/19/18 09:00 11/18/18 08:59 10/21/18 09:39 Lorazepam (Ativan 2mg/ml 1ml) 2 mg Q4H PRN IV For Seizures 10/18/18 19:00 10/25/18 18:59 Nitroglycerin (Nitro-Bid) 1 inch TID@0600,1200,1800 TOPIC 10/19/18 12:00 11/18/18 11:59 10/21/18 05:38 Piperacillin Sod/ Tazobactam Sod 3.375 gm/Sodium Chloride 110 ml @ 27.5 mls/hr EVERY 8 HOURS IVPB 10/18/18 20:00 10/23/18 19:59 10/21/18 05:38 Potassium Chloride 100 ml @ 100 mls/hr Q1H IVPB 10/21/18 10:30 10/21/18 14:29 Landon Pagan MD Oct 21, 2018 11:25
--- NOTE | 2018-10-21 11:36 | General Progress Note ---
Assessment/Plan Assessment/Plan Assessment and Recs: # Erythrocytosis - multiple etiologies, requires higher oxygen demand --> jak2 not required at this time --> give ivf to see if patient potentially dehydrated --> us of the abd can be withheld at this time --> no smoking in future --> currently has improved most likely related to fluid redistribution # Hyperproteinemia, elevated protein albumin ratio --> evaluate with spep study (no bands are seen, results reviewed) --> no sig evidence of kajal, anemia, bony lesions, unlikely myeloma # Altered mental status --> per neuro management --> may need rehab in future # Epileptic seizure, generalized --> as per neuro Greatly appreciate consultation! Subjective Constitutional: Denies: no symptoms, chills, diaphoresis, fever, malaise, weakness, other HEENT: Denies: no symptoms, eye pain, blurred vision, tearing, double vision, ear pain, ear discharge, nose pain, nose congestion, throat pain, throat swelling, mouth pain, mouth swelling, other Cardiovascular: Denies: no symptoms, chest pain, edema, irregular heart rate, lightheadedness, palpitations, syncope, other Respiratory: Denies: no symptoms, cough, orthopnea, shortness of breath, SOB with excertion, SOB at rest, sputum, stridor, wheezing, other Gastrointestinal/Abdominal: Denies: no symptoms, abdomen distended, abdominal pain, black stools, tarry stools, blood in stool, constipated, diarrhea, difficulty swallowing, nausea, poor appetite, poor fluid intake, rectal bleeding , vomiting, other Genitourinary: Denies: no symptoms, burning, discharge, frequency, flank pain, hematuria, incontinence, pain, urgency, other Neurologic/Psychiatric: Denies: no symptoms, anxiety, depressed, emotional problems, headache, numbness, paresthesia, pre-existing deficit, seizure, tingling, tremors, weakness, other Endocrine: Denies: no symptoms, excessive sweating, flushing, intolerance to cold, intolerance to heat, increased hunger, increased thirst, increased urine, unexplained weight gain, unexplained weight loss, other Allergies: Coded Allergies: LIANG INHIBITORS (Verified Allergy, Unknown, 11/14/16) Subjective 10/20: seen by bedside, awake, comfortable, no acute events 10/21: swallow eval ordered, speech to eval, remains somewhat lethargic Objective Last 24 Hour Vital Signs Date Time Temp Pulse Resp B/P (MAP) Pulse Ox O2 Delivery O2 Flow Rate FiO2 10/21/18 09:00 Room Air Room Air 10/21/18 08:00 97.2 61 18 150/70 (96) 97 10/21/18 08:00 61 10/21/18 05:38 150/72 10/21/18 04:00 98.5 89 19 150/72 (98) 96 10/21/18 03:26 62 10/21/18 00:00 98.5 92 17 137/84 (101) 98 10/20/18 23:24 97 10/20/18 21:00 Room Air Room Air 10/20/18 20:00 98.9 101 17 134/78 (96) 96 10/20/18 20:00 80 10/20/18 18:05 154/71 10/20/18 16:00 90 10/20/18 16:00 97.9 90 18 154/71 (98) 97 10/20/18 12:24 140/74 10/20/18 12:00 59 10/20/18 12:00 98.6 59 18 140/74 (96) 98 Intake and Output 10/20/18 10/21/18 19:00 07:00 Output Total 1000 ml 600 ml Balance -1000 ml -600 ml Output Urine Total 1000 ml 600 ml Laboratory Tests 10/20/18 15:15: C-Reactive Protein, Quantitative 14.9H, Total Protein (PEP) 6.2, Albumin (PEP) 2.7L, Globulin (PEP) 3.5, Albumin/Globulin Ratio 0.8, Tgnta-9-Atkdeylwl 0.4, Syzdb-8-Rqljwiuie 0.8, Beta Globulins 1.0, Beta Gamma Globulin 1.3, PEP Abnormal Protein Bands Not observed, Protein Electrophoresis Interpret Comment 10/21/18 04:45: Albumin/Globulin Ratio 0.6L, White Blood Count 7.2, Red Blood Count 4.34, Hemoglobin 12.4, Hematocrit 37.5, Mean Corpuscular Volume 86, Mean Corpuscular Hemoglobin 28.6, Mean Corpuscular Hemoglobin Concent 33.0, Red Cell Distribution Width 12.5, Platelet Count 170, Mean Platelet Volume 6.1L, Neutrophils (%) (Auto) 70.0, Lymphocytes (%) (Auto) 18.5L, Monocytes (%) (Auto) 8.8, Eosinophils (%) (Auto) 2.0, Basophils (%) (Auto) 0.7, Sodium Level 144, Potassium Level 3.2L, Chloride Level 112H, Carbon Dioxide Level 22, Anion Gap 10 , Blood Urea Nitrogen 6L, Creatinine 0.9, Estimat Glomerular Filtration Rate , Glucose Level 114H, Calcium Level 8.0L, Phosphorus Level 2.6, Magnesium Level 1.9, Total Bilirubin 0.9, Gamma Glutamyl Transpeptidase 21, Aspartate Amino Transf (AST/SGOT) 29, Alanine Aminotransferase (ALT/SGPT) 34, Alkaline Phosphatase 84, Ammonia 29, Pro-B-Type Natriuretic Peptide 407H, Total Protein 6.3L, Albumin 2.3L, Globulin 4.0 Height (Feet): 4 Height (Inches): 10.00 Weight (Pounds): 124 Objective General Appearance: alert, thin, Chronically Ill Head: atraumatic ENT: normal ENT inspection, hearing grossly normal, normal voice Neck: no bony tend Respiratory: normal inspection, no cwr Gastrointestinal: soft, no guarding, no hernia Genitourinary: no CVA tenderness Musculoskeletal: normal inspection, back normal, normal range of motion Neurologic: motor weakness Psychiatric: depressed affect Skin: normal inspection, normal color, no rash Charles Gr MD Oct 21, 2018 11:36
[2018-10-21] MEDS: D5 1/2NS w/KCl 20mEq 1,000 ML IV SCH (11:50)
[2018-10-21 12:00] VITALS: BP 185/93
--- NOTE | 2018-10-21 12:27 | NUR ---
ST NOTE: VIDEOSWALLOW STUDY COMPLETED VIDEOSWALLOW STUDY FULL REPORT WILL FOLLOW IN ST NOTE UNDER CARE ACTIVITY PT ALERT DURING THE VIDEOSWALLOW, CONFUSED AND DID NOT FOLLOW THE DIRECTIONS. GIVEN PO TRIALS: THIN(TSPX2/MED CUP), PT WAS UNABLE TO USE STRAW, NECTAR THICK(TSP/MED CUP), HONEY THICK(TSP) AND PUDDING (TSP), PT SPIT OUT THE SALTINE CRACKER WHEN ATTEMPTED THE MASTICATED SOLID. IMPRESSION: PT PRESENTS WITH MODERATELY SEVERE OROPHARYNGEAL DYSPHAGIA CHARACTERIZED BY MILD TO MODERATE ORAL RESIDUE, INCREASED ORAL TRANSIT TIME AND OROPHARYNGEAL TRANSIT TIME DUE TO SENSORIMOTOR DEFICITS AND POSSIBLE ORAL APRAXIA. TRACE SILENT PENETRATION WITH THIN(TSP) ON THE WARM UP(FIRST) TRIAL, ENTERED THE AIRWAY, ABOVE THE VOCAL FOLDS, NOT EJECTED, DUE TO DELAYED SWALLOW, REDUCED LARYNGEAL ELEVATION AND REDUCED LARYNGEAL VESTIBULE CLOSURE. MILD TO MODERATE TONGUE BASE AND VALLECULAR RESIDUE WAS NOTED DUE TO REDUCED TONGUE BASE RETRACTION. LIMITED SWALLOW TECHNIQUES WERE ABLE TO USE DUE TO PT IS COGNITIVELY IMPAIRED. NO ASPIRATION WAS NOTED BUT HAS HIGH RISK DUE TO PT IS COGNITIVELY IMPAIRED. PT BENEFITS FROM SWALLOW X 2 TO 3 TIMES AND ALLOW TIME. RECOMMENDATIONS: 1. PER PT'S POLST: NO ARTIFICIAL MEANS OF NUTRITION, INCLUDING FEEDING TUBES. PO SHOULD BE GIVEN FOR QUALITY OF LIFE, SLOWLY INITIATE LIQUIFIED PUREED, LIKE NECTAR THICK SOUP CONSISTENCY WITH NECTAR THICK LIQUIDS. 2. STRICT ASPIRATION PRECAUTIONS WITH 1TO1 FEEDING. (FEED PT ONLY WHEN PT IS ALERT). D/W DAVID KC AND INFORMED , DR. LOONEY RE: RESULTS AND RECOMMENDATIONS. MD APPROVED FOR THE DIET FOR QUALITY OF LIFE. POSTED ASPIRATION PRECAUTIONS SIGN.
--- NOTE | 2018-10-21 13:34 | Nephrology Progress Note ---
Assessment/Plan Problem List: (1) Epileptic seizure, generalized (2) UTI (urinary tract infection) (3) Encephalopathy Assessment Acute Encephalopathy UTI Sepsis, leukocytosis Sz Plan meds po [place] IV fluids Correct lytes antibiotics, Zosyn start po per ST Gastric support, pepcid anti Sz meds monitor neuro status Subjective ROS Limited/Unobtainable: No Constitutional: Reports: malaise Objective Objective Last 24 Hour Vital Signs Date Time Temp Pulse Resp B/P (MAP) Pulse Ox O2 Delivery O2 Flow Rate FiO2 10/21/18 12:00 97.9 97 18 185/93 (123) 96 10/21/18 11:49 185/93 10/21/18 09:00 Room Air Room Air 10/21/18 08:00 97.2 61 18 150/70 (96) 97 10/21/18 08:00 61 10/21/18 05:38 150/72 10/21/18 04:00 98.5 89 19 150/72 (98) 96 10/21/18 03:26 62 10/21/18 00:00 98.5 92 17 137/84 (101) 98 10/20/18 23:24 97 10/20/18 21:00 Room Air Room Air 10/20/18 20:00 98.9 101 17 134/78 (96) 96 10/20/18 20:00 80 10/20/18 18:05 154/71 10/20/18 16:00 90 10/20/18 16:00 97.9 90 18 154/71 (98) 97 Intake and Output 10/20/18 10/21/18 19:00 07:00 Output Total 1000 ml 600 ml Balance -1000 ml -600 ml Output Urine Total 1000 ml 600 ml Laboratory Tests 10/20/18 15:15: C-Reactive Protein, Quantitative 14.9H, Total Protein (PEP) 6.2, Albumin (PEP) 2.7L, Globulin (PEP) 3.5, Albumin/Globulin Ratio 0.8, Pteej-4-Ogykqlhss 0.4, Dtlrh-2-Egqaunbrc 0.8, Beta Globulins 1.0, Beta Gamma Globulin 1.3, PEP Abnormal Protein Bands Not observed, Protein Electrophoresis Interpret Comment 10/21/18 04:45: Albumin/Globulin Ratio 0.6L, White Blood Count 7.2, Red Blood Count 4.34, Hemoglobin 12.4, Hematocrit 37.5, Mean Corpuscular Volume 86, Mean Corpuscular Hemoglobin 28.6, Mean Corpuscular Hemoglobin Concent 33.0, Red Cell Distribution Width 12.5, Platelet Count 170, Mean Platelet Volume 6.1L, Neutrophils (%) (Auto) 70.0, Lymphocytes (%) (Auto) 18.5L, Monocytes (%) (Auto) 8.8, Eosinophils (%) (Auto) 2.0, Basophils (%) (Auto) 0.7, Sodium Level 144, Potassium Level 3.2L, Chloride Level 112H, Carbon Dioxide Level 22, Anion Gap 10 , Blood Urea Nitrogen 6L, Creatinine 0.9, Estimat Glomerular Filtration Rate , Glucose Level 114H, Calcium Level 8.0L, Phosphorus Level 2.6, Magnesium Level 1.9, Total Bilirubin 0.9, Gamma Glutamyl Transpeptidase 21, Aspartate Amino Transf (AST/SGOT) 29, Alanine Aminotransferase (ALT/SGPT) 34, Alkaline Phosphatase 84, Ammonia 29, Pro-B-Type Natriuretic Peptide 407H, Total Protein 6.3L, Albumin 2.3L, Globulin 4.0 Height (Feet): 4 Height (Inches): 10.00 Weight (Pounds): 124 General Appearance: other - more responsive Cardiovascular: normal rate Respiratory/Chest: decreased breath sounds Abdomen: soft Objective PE NO CHANGE Ashok Ann MD Oct 21, 2018 13:34
[2018-10-21 16:00] VITALS: BP 152/85
--- NOTE | 2018-10-21 19:29 | NUR ---
HAND-OFF: Report given to DE Ann.Patient is in stable condition.
--- NOTE | 2018-10-21 19:53 | NUR ---
NURSE NOTES: Report received from DE Mercer. Pt is lying comfortably in semi fowlers with no signs of distress. Pt is A+Ox1 showing no signs of pain/ SOB. Pt is able to be aroused by voice. IV site is patent, intact, and running fluids at prescribed rate. Respirations are even and unlabored on room air. Bed is at lowest position, brakes engaged, siderails x2, bed alarm on, and call light within reach. Pt is in stable condition at this time; will continue to monitor.
[2018-10-21 20:00] VITALS: BP 139/61
[2018-10-22] VITALS: BP 136/69
[2018-10-22 04:00] VITALS: BP 138/57
--- NOTE | 2018-10-22 05:00 | Progress Note ---
DATE: 10/21/2018 SUBJECTIVE: The patient is doing much better. She is awake and alert. She has been receiving treatment with acyclovir 500 mg b.i.d. and piperacillin sodium. PHYSICAL EXAMINATION: VITAL SIGNS: The blood pressure is 152/85 with pulse of 88 and regular, temperature is 97.4 degrees. SpO2 was 99%. MENTAL STATUS EXAMINATION: The patient is alert and awake, but does not answer to exam. She is more happy and having good spirits. Does not answer questions or follow commands. COGNITIVE: No recognizable spontaneous speech. Cranial nerves II through XII difficult to evaluate, essentially unchanged. MUSCULOSKELETAL: She moves both upper extremities equally, but does move her lower extremities. Reflexes are trace in the upper extremities, lower extremities not obtainable. Lower extremities are flaccid. Tone is increased. Upper extremity has no paratonia. COORDINATION: Could not be done. GAIT: The patient is bedbound. IMPRESSION: The patient has metabolic encephalopathy. Her EEG is consistent with it. There is no evidence to suggest herpes simplex encephalitis at this time. The patient has urinary tract infection. At this time, lumbar puncture is not necessary. The patient is probably at baseline. We will follow the patient. Armand Chappell MD DR: KEITH JOB#: [id number] CC: ANNMARIE
[2018-10-22] MEDS: Nitroglycerin 2% oint pkt TOPIC SCH ×3 (05:34→18:20)
[2018-10-22] MEDS: Piperacillin/Tazobactam 3.375 GM in NS 110 ML IVPB SCH (05:35)
--- NOTE | 2018-10-22 07:24 | NUR ---
HAND-OFF: Report given to DE Byrnes. Pt is in stable condition; plan of care endorsed.
[2018-10-22 08:00] VITALS: BP 145/60
[2018-10-22] MEDS: Heparin 5000 units/ml inj SUBQ SCH ×2 (08:27→21:17)
--- NOTE | 2018-10-22 10:24 | Infectious Diseases Prog Note ---
Assessment/Plan Assessment/Plan A: 1. Strep group B UTI. 2. Encephalopathy.toxic-metabolic 3. Altered mental status. 4. Dementia. 5. Major depressive disorder. 6. Hypertension. RECOMMENDATION: Change IV Zosyn to oral Amoxicillin Subjective ROS Limited/Unobtainable: Yes Constitutional: Reports: no symptoms Allergies: Coded Allergies: LIANG INHIBITORS (Verified Allergy, Unknown, 11/14/16) Objective Vital Signs Last 24 Hour Vital Signs Date Time Temp Pulse Resp B/P (MAP) Pulse Ox O2 Delivery O2 Flow Rate FiO2 10/22/18 05:34 138/57 10/22/18 04:00 97.9 69 19 138/57 (84) 99 10/22/18 04:00 55 10/22/18 00:00 97.9 78 19 136/69 (91) 98 10/22/18 00:00 53 10/21/18 21:00 Room Air Room Air 10/21/18 20:00 71 10/21/18 20:00 97.7 60 20 139/61 (87) 99 10/21/18 17:35 152/85 10/21/18 16:00 97.4 88 18 152/85 (107) 99 10/21/18 16:00 92 10/21/18 12:00 100 10/21/18 12:00 97.9 97 18 185/93 (123) 96 10/21/18 11:49 185/93 Height (Feet): 4 Height (Inches): 10.00 Weight (Pounds): 124 General Appearance: no acute distress HEENT: mucous membranes moist Respiratory/Chest: lungs clear Cardiovascular: bradycardia Abdomen: soft, non tender Extremities: no edema Neurologic/Psychiatric: other - sleeping Current Medications Medications (Trade) Dose Ordered Sig/Román Route PRN Reason Start Time Stop Time Status Last Admin Dose Admin Acetaminophen (Tylenol) 500 mg Q4H PRN ORAL Mild Pain/Temp > 100.5 10/18/18 17:15 11/17/18 17:14 Acetaminophen (Tylenol) 650 mg Q4H PRN RECTAL Mild Pain/Temp > 100.5 10/19/18 01:00 11/18/18 00:59 Heparin Sodium (Porcine) (Heparin 5000 units/ml) 5,000 units EVERY 12 HOURS SUBQ 10/18/18 21:00 11/17/18 20:59 10/22/18 08:27 Hydralazine HCl (Apresoline) 10 mg Q4H PRN IV bp over 160 syst 10/19/18 09:15 11/18/18 09:14 Levetiracetam (Keppra) 500 mg Q12HR ORAL 10/21/18 21:00 11/20/18 20:59 10/22/18 08:18 Lorazepam (Ativan 2mg/ml 1ml) 2 mg Q4H PRN IV For Seizures 10/18/18 19:00 10/25/18 18:59 Nitroglycerin (Nitro-Bid) 1 inch TID@0600,1200,1800 TOPIC 10/19/18 12:00 11/18/18 11:59 10/22/18 05:34 Pantoprazole (Protonix) 40 mg DAILY ORAL 10/22/18 09:00 11/21/18 08:59 10/22/18 08:18 Piperacillin Sod/ Tazobactam Sod 3.375 gm/Sodium Chloride 110 ml @ 27.5 mls/hr EVERY 8 HOURS IVPB 10/18/18 20:00 10/23/18 19:59 10/22/18 05:35 Landon Pagan MD Oct 22, 2018 10:24
[2018-10-22 12:00] VITALS: BP 141/84
--- NOTE | 2018-10-22 12:06 | General Progress Note ---
Assessment/Plan Problem List: (1) Altered mental status ICD Codes: R41.82 - Altered mental status, unspecified SNOMED: 346813365 (2) UTI (urinary tract infection) ICD Codes: N39.0 - Urinary tract infection, site not specified SNOMED: 80500818 (3) Encephalopathy ICD Codes: G93.40 - Encephalopathy, unspecified SNOMED: 01216835 Status: unchanged Assessment/Plan still lethargic LP decision per id and neuro sepsis intermittent fever st ordered encphalopathy due to sepsis? Subjective ROS Limited/Unobtainable: Yes Allergies: Coded Allergies: LIANG INHIBITORS (Verified Allergy, Unknown, 11/14/16) Subjective still lethargic and confused Objective Last 24 Hour Vital Signs Date Time Temp Pulse Resp B/P (MAP) Pulse Ox O2 Delivery O2 Flow Rate FiO2 10/22/18 11:58 145/60 10/22/18 08:00 97.5 63 17 145/60 (88) 98 10/22/18 05:34 138/57 10/22/18 04:00 97.9 69 19 138/57 (84) 99 10/22/18 04:00 55 10/22/18 00:00 97.9 78 19 136/69 (91) 98 10/22/18 00:00 53 10/21/18 21:00 Room Air Room Air 10/21/18 20:00 71 10/21/18 20:00 97.7 60 20 139/61 (87) 99 10/21/18 17:35 152/85 10/21/18 16:00 97.4 88 18 152/85 (107) 99 10/21/18 16:00 92 Intake and Output 10/21/18 10/22/18 18:59 06:59 Intake Total 120 ml 110 ml Output Total 300 ml 1350 ml Balance -180 ml -1240 ml Intake Oral 120 ml IV Total 110 ml Output Urine Total 300 ml 1350 ml # Voids 1 Height (Feet): 4 Height (Inches): 10.00 Weight (Pounds): 124 General Appearance: lethargic, confused Cardiovascular: regular rhythm Respiratory/Chest: lungs clear Carlos Green MD Oct 22, 2018 12:06
[2018-10-22] MEDS: Amoxicillin 250mg/5ml susp 150ml ORAL SCH ×2 (14:49→21:17)
[2018-10-22 16:00] VITALS: BP 138/74
--- NOTE | 2018-10-22 17:38 | Nephrology Progress Note ---
Assessment/Plan Problem List: (1) Epileptic seizure, generalized (2) UTI (urinary tract infection) (3) Encephalopathy Assessment Acute Encephalopathy UTI Sepsis, leukocytosis Sz Plan meds po [place] IV fluids Correct lytes antibiotics, Zosyn start po per ST Gastric support, pepcid anti Sz meds monitor neuro status Subjective ROS Limited/Unobtainable: No Constitutional: Reports: malaise Objective Objective Last 24 Hour Vital Signs Date Time Temp Pulse Resp B/P (MAP) Pulse Ox O2 Delivery O2 Flow Rate FiO2 10/22/18 12:00 67 10/22/18 11:58 145/60 10/22/18 08:00 97.5 63 17 145/60 (88) 98 10/22/18 08:00 68 10/22/18 05:34 138/57 10/22/18 04:00 97.9 69 19 138/57 (84) 99 10/22/18 04:00 55 10/22/18 00:00 97.9 78 19 136/69 (91) 98 10/22/18 00:00 53 10/21/18 21:00 Room Air Room Air 10/21/18 20:00 71 10/21/18 20:00 97.7 60 20 139/61 (87) 99 Intake and Output 10/21/18 10/22/18 19:00 07:00 Intake Total 120 ml 110 ml Output Total 300 ml 1350 ml Balance -180 ml -1240 ml Intake Oral 120 ml IV Total 110 ml Output Urine Total 300 ml 1350 ml # Voids 1 Height (Feet): 4 Height (Inches): 10.00 Weight (Pounds): 124 General Appearance: no apparent distress Objective PE NO CHANGE sAhok Ann MD Oct 22, 2018 17:38
--- NOTE | 2018-10-22 19:30 | NUR ---
NURSE NOTES: Received patient from DE Byrnes. Patient on bed asleep. No signs of distress noted. 1:1 feeder. No seizures at this time. Noted K-3.2. Will notify Dr. Ann. IV site intact and patent. [place] in place. Draining well. Call light within reach. Bed brakes engaged.
--- NOTE | 2018-10-22 19:40 | NUR ---
NURSE NOTES: Received patient from DE Byrnes. Pt is in stable condition and resting comfortably in bed. No signs or symptoms of distress noted at this time. IV site intact and patent. [place] in place and draining to gravity. Bed is in the lowest position, Call light within reach, side rails raised x3 and bed brakes engaged. Will continue to monitor.
--- NOTE | 2018-10-22 19:47 | NUR ---
NURSE NOTES: Called Dr. Ann regarding K-3.2. Ordered KCl 40mEq x1 PO. Will carry out.
[2018-10-22 20:00] VITALS: BP 160/87
--- NOTE | 2018-10-22 20:51 | General Progress Note ---
Assessment/Plan Assessment/Plan Assessment and Recs: # Erythrocytosis - multiple etiologies, requires higher oxygen demand --> jak2 not required at this time --> give ivf to see if patient potentially dehydrated --> us of the abd can be withheld at this time --> no smoking in future --> currently has improved most likely related to fluid redistribution # Hyperproteinemia, elevated protein albumin ratio --> evaluate with spep study (no bands are seen, results reviewed) --> no sig evidence of kajal, anemia, bony lesions, unlikely myeloma # Altered mental status --> per neuro management --> may need rehab in future # Epileptic seizure, generalized --> as per neuro Greatly appreciate consultation! Subjective Allergies: Coded Allergies: LIANG INHIBITORS (Verified Allergy, Unknown, 11/14/16) Subjective 10/20: seen by bedside, awake, comfortable, no acute events 10/21: swallow eval ordered, speech to eval, remains somewhat lethargic 2: awake, comfortable, remains lethargic and confused. Objective Last 24 Hour Vital Signs Date Time Temp Pulse Resp B/P (MAP) Pulse Ox O2 Delivery O2 Flow Rate FiO2 10/22/18 18:20 145/60 10/22/18 16:00 97.9 18 138/74 (95) 98 10/22/18 16:00 69 10/22/18 12:00 67 10/22/18 12:00 98.6 17 141/84 (103) 98 10/22/18 11:58 145/60 10/22/18 09:00 Room Air Room Air 10/22/18 08:00 97.5 63 17 145/60 (88) 98 10/22/18 08:00 68 10/22/18 05:34 138/57 10/22/18 04:00 97.9 69 19 138/57 (84) 99 10/22/18 04:00 55 10/22/18 00:00 97.9 78 19 136/69 (91) 98 10/22/18 00:00 53 10/21/18 21:00 Room Air Room Air Intake and Output 10/21/18 10/22/18 19:00 07:00 Intake Total 120 ml 110 ml Output Total 300 ml 1350 ml Balance -180 ml -1240 ml Intake Oral 120 ml IV Total 110 ml Output Urine Total 300 ml 1350 ml # Voids 1 Height (Feet): 4 Height (Inches): 10.00 Weight (Pounds): 124 Objective General Appearance: alert, thin, Chronically Ill Head: atraumatic ENT: normal ENT inspection, hearing grossly normal, normal voice Neck: no bony tend Respiratory: normal inspection, no cwr Gastrointestinal: soft, no guarding, no hernia Genitourinary: no CVA tenderness Musculoskeletal: normal inspection, back normal, normal range of motion Neurologic: motor weakness Psychiatric: depressed affect Skin: normal inspection, normal color, no rash Charles Gr MD Oct 22, 2018 20:51
[2018-10-23] VITALS (7 sets, daily range): BP systolic 131–184; BP diastolic 54–94
--- NOTE | 2018-10-23 05:30 | NUR ---
NURSE NOTES: Pt complained of SOB. Called RT. BiPaP was applied. Pt 's anxiety relieved. At this time pt is asleep. No distress or restlessness noted.
[2018-10-23] MEDS: Nitroglycerin 2% oint pkt TOPIC SCH ×3 (06:05→17:47)
[2018-10-23] MEDS: Amoxicillin 250mg/5ml susp 150ml ORAL SCH ×3 (06:05→22:35)
--- NOTE | 2018-10-23 06:24 | NUR ---
NURSE NOTES: BM x 1 10/23/18. Pt kept clean and dry.
--- NOTE | 2018-10-23 07:29 | NUR ---
HAND-OFF: Report given to DE Byrnes. Endorsed plan of care.
[2018-10-23] MEDS: Heparin 5000 units/ml inj SUBQ SCH ×2 (09:03→22:34)
--- NOTE | 2018-10-23 11:45 | Nephrology Progress Note ---
Assessment/Plan Problem List: (1) Epileptic seizure, generalized (2) UTI (urinary tract infection) (3) Encephalopathy Assessment Acute Encephalopathy UTI Sepsis, leukocytosis Sz Plan RN Reports hard po intake ! will change anti Sz meds to IV ? PEG ? other meds po DC rodrigues Rodrigues IV fluids Correct lytes antibiotics, Zosyn start po per ST Gastric support, pepcid anti Sz meds monitor neuro status Subjective ROS Limited/Unobtainable: No Constitutional: Reports: malaise Objective Objective Last 24 Hour Vital Signs Date Time Temp Pulse Resp B/P (MAP) Pulse Ox O2 Delivery O2 Flow Rate FiO2 10/23/18 11:41 135/84 10/23/18 08:00 98.2 77 18 135/84 (101) 96 10/23/18 06:34 97.9 10/23/18 06:05 142/67 10/23/18 04:30 89 138/65 (89) 10/23/18 04:30 187/74 10/23/18 04:00 101.1 90 18 184/74 (110) 97 10/23/18 03:37 62 10/23/18 00:00 97.7 97 18 163/94 (117) 97 10/22/18 23:25 86 10/22/18 21:00 Room Air Room Air 10/22/18 20:00 98.2 98 18 160/87 (111) 95 10/22/18 19:09 98 10/22/18 18:20 145/60 10/22/18 16:00 97.9 18 138/74 (95) 98 10/22/18 16:00 69 10/22/18 12:00 67 10/22/18 12:00 98.6 17 141/84 (103) 98 10/22/18 11:58 145/60 Intake and Output 10/22/18 10/23/18 18:59 06:59 Intake Total 120 ml Output Total 800 ml Balance -680 ml Intake Oral 120 ml Output Urine Total 800 ml # Voids 3 # Bowel Movements 1 Height (Feet): 4 Height (Inches): 10.00 Weight (Pounds): 124 General Appearance: no apparent distress Cardiovascular: normal rate Respiratory/Chest: decreased breath sounds Abdomen: soft Objective PE NO CHANGE Ashok Ann MD Oct 23, 2018 11:45
[2018-10-23] MEDS: levETIRAcetam 500mg/NS100ml 100 ML IVPB SCH ×2 (12:36→22:35)
--- NOTE | 2018-10-23 16:37 | NUR ---
NURSE NOTES: Lagunas removed per Dr Ann, Pt placed on purewick.
--- NOTE | 2018-10-23 18:35 | General Progress Note ---
Assessment/Plan Problem List: (1) Altered mental status ICD Codes: R41.82 - Altered mental status, unspecified SNOMED: 676264779 (2) UTI (urinary tract infection) ICD Codes: N39.0 - Urinary tract infection, site not specified SNOMED: 99336394 (3) Encephalopathy ICD Codes: G93.40 - Encephalopathy, unspecified SNOMED: 19985348 Status: progressing Assessment/Plan still lethargic no lp per id no fever today still confused sepsis intermittent fever st ordered encphalopathy due to sepsis Subjective ROS Limited/Unobtainable: Yes Allergies: Coded Allergies: LIANG INHIBITORS (Verified Allergy, Unknown, 11/14/16) Subjective still lethargic and confused Objective Last 24 Hour Vital Signs Date Time Temp Pulse Resp B/P (MAP) Pulse Ox O2 Delivery O2 Flow Rate FiO2 10/23/18 17:47 151/76 10/23/18 16:00 79 10/23/18 16:00 97.2 84 18 151/76 (101) 95 10/23/18 12:00 75 10/23/18 12:00 98.6 94 18 153/83 (106) 95 10/23/18 11:41 135/84 10/23/18 09:00 Room Air Room Air 10/23/18 08:00 98.2 77 18 135/84 (101) 96 10/23/18 08:00 77 10/23/18 06:34 97.9 10/23/18 06:05 142/67 10/23/18 04:30 89 138/65 (89) 10/23/18 04:30 187/74 10/23/18 04:00 101.1 90 18 184/74 (110) 97 10/23/18 03:37 62 10/23/18 00:00 97.7 97 18 163/94 (117) 97 10/22/18 23:25 86 10/22/18 21:00 Room Air Room Air 10/22/18 20:00 98.2 98 18 160/87 (111) 95 10/22/18 19:09 98 Intake and Output 10/22/18 10/23/18 19:00 07:00 Intake Total 120 ml Output Total 800 ml Balance -680 ml Intake Oral 120 ml Output Urine Total 800 ml # Voids 3 # Bowel Movements 1 Height (Feet): 4 Height (Inches): 10.00 Weight (Pounds): 124 Neck: supple Cardiovascular: normal rate Respiratory/Chest: lungs clear Abdomen: soft Carlos Green MD Oct 23, 2018 18:35
--- NOTE | 2018-10-23 19:00 | NUR ---
NURSE NOTES: Received report from DE Byrnes. Patient is in bed asleep. Vitals stable. Respiration even non labored on room air. No SOB noted. IV line patent and intact. Bed in lowest position. Side rails padded. Aspiration precaution observed. Call light within reach. All needs attended and met. Will continue plan of care.
--- NOTE | 2018-10-23 19:30 | NUR ---
NURSE NOTES: Patient is presented with skin tears from tape adhesion for [place]-Bid ointment on the upper chest area. Will use proper paper tape for nitro-bid patch ointment.
[2018-10-24] VITALS: BP 148/60
[2018-10-24 04:00] VITALS: BP 158/79
[2018-10-24] MEDS: Amoxicillin 250mg/5ml susp 150ml ORAL SCH ×3 (05:26→21:12)
[2018-10-24] MEDS: Nitroglycerin 2% oint pkt TOPIC SCH ×3 (05:29→17:43)
--- NOTE | 2018-10-24 07:08 | NUR ---
HAND-OFF: Report given to DE Byrnes.
[2018-10-24 08:00] VITALS: BP 150/62
--- NOTE | 2018-10-24 08:00 | NUR ---
NURSE NOTES: Pt asleep/obtunded in bed, breathing easily on room air, no indication of any pain, Vital signs stable with SR at 68 on monitor. IV access left forearm, wrapped to prevent accidental dislodgement, with NS at TKO. Purewick in place draining clear yellow/josue urine to collection canister on wall. SCD in place and running. Pt repositioned to high fowlers position. Bed left in low position, exit alarm set, side rails up x 3 and call light left near pt's hand.
[2018-10-24] MEDS: levETIRAcetam 500mg/NS100ml 100 ML IVPB SCH ×2 (09:08→21:12)
[2018-10-24] MEDS: Heparin 5000 units/ml inj SUBQ SCH ×2 (09:10→21:13)
--- NOTE | 2018-10-24 10:47 | Infectious Diseases Prog Note ---
Assessment/Plan Assessment/Plan A: 1. Strep group B UTI. 2. Encephalopathy.toxic-metabolic 3. Altered mental status. 4. Dementia. 5. Major depressive disorder. 6. Hypertension. RECOMMENDATION: Continue oral Amoxicillin X 1 more day Subjective ROS Limited/Unobtainable: Yes Constitutional: Reports: no symptoms Allergies: Coded Allergies: LIANG INHIBITORS (Verified Allergy, Unknown, 11/14/16) Objective Vital Signs Last 24 Hour Vital Signs Date Time Temp Pulse Resp B/P (MAP) Pulse Ox O2 Delivery O2 Flow Rate FiO2 10/24/18 08:00 96.7 76 18 150/62 (91) 98 10/24/18 05:29 158/79 10/24/18 04:00 97.3 60 20 158/79 (105) 97 10/24/18 04:00 56 10/24/18 00:00 96.0 63 20 148/60 (89) 96 10/24/18 00:00 55 10/23/18 21:00 Room Air Room Air 10/23/18 20:00 60 10/23/18 20:00 97.0 58 20 131/54 (79) 98 10/23/18 17:47 151/76 10/23/18 16:00 79 10/23/18 16:00 97.2 84 18 151/76 (101) 95 10/23/18 12:00 75 10/23/18 12:00 98.6 94 18 153/83 (106) 95 10/23/18 11:41 135/84 Height (Feet): 4 Height (Inches): 10.00 Weight (Pounds): 124 General Appearance: no acute distress HEENT: mucous membranes moist Respiratory/Chest: lungs clear Cardiovascular: normal rate Abdomen: soft, non tender Extremities: no edema Neurologic/Psychiatric: alert, other - nonverbal Current Medications Medications (Trade) Dose Ordered Sig/Román Route PRN Reason Start Time Stop Time Status Last Admin Dose Admin Acetaminophen (Tylenol) 500 mg Q4H PRN ORAL Mild Pain/Temp > 100.5 10/18/18 17:15 11/17/18 17:14 Acetaminophen (Tylenol) 650 mg Q4H PRN RECTAL Mild Pain/Temp > 100.5 10/19/18 01:00 11/18/18 00:59 10/23/18 06:04 Amoxicillin (Amoxil) 500 mg EVERY 8 HOURS ORAL 2/15/19 14:00 10/29/18 13:59 10/24/18 05:26 Heparin Sodium (Porcine) (Heparin 5000 units/ml) 5,000 units EVERY 12 HOURS SUBQ 10/18/18 21:00 11/17/18 20:59 10/24/18 09:10 Hydralazine HCl (Apresoline) 10 mg Q4H PRN IV bp over 160 syst 10/19/18 09:15 11/18/18 09:14 10/23/18 04:30 Levetiracetam 100 ml @ 400 mls/hr Q12HR IVPB 10/23/18 12:00 11/22/18 11:59 10/24/18 09:08 Lorazepam (Ativan 2mg/ml 1ml) 2 mg Q4H PRN IV For Seizures 10/18/18 19:00 10/25/18 18:59 Nitroglycerin (Nitro-Bid) 1 inch TID@0600,1200,1800 TOPIC 10/19/18 12:00 11/18/18 11:59 10/24/18 05:29 Pantoprazole (Protonix) 40 mg DAILY ORAL 10/22/18 09:00 11/21/18 08:59 10/24/18 09:09 Landon Pagan MD Oct 24, 2018 10:47
[2018-10-24 12:00] VITALS: BP 145/75
--- NOTE | 2018-10-24 12:46 | Nephrology Progress Note ---
Assessment/Plan Problem List: (1) Epileptic seizure, generalized (2) UTI (urinary tract infection) (3) Encephalopathy Assessment Acute Encephalopathy UTI Sepsis, leukocytosis Sz Plan RN Reports hard po intake ! will change anti Sz meds to IV ? PEG ? other meds po DC rodrigues Rodrigues IV fluids Correct lytes antibiotics, Zosyn start po per ST Gastric support, pepcid anti Sz meds monitor neuro status Subjective ROS Limited/Unobtainable: No Constitutional: Reports: malaise Objective Objective Last 24 Hour Vital Signs Date Time Temp Pulse Resp B/P (MAP) Pulse Ox O2 Delivery O2 Flow Rate FiO2 10/24/18 09:00 Room Air Room Air 10/24/18 08:00 76 10/24/18 08:00 96.7 76 18 150/62 (91) 98 10/24/18 05:29 158/79 10/24/18 04:00 97.3 60 20 158/79 (105) 97 10/24/18 04:00 56 10/24/18 00:00 96.0 63 20 148/60 (89) 96 10/24/18 00:00 55 10/23/18 21:00 Room Air Room Air 10/23/18 20:00 60 10/23/18 20:00 97.0 58 20 131/54 (79) 98 10/23/18 17:47 151/76 10/23/18 16:00 79 10/23/18 16:00 97.2 84 18 151/76 (101) 95 Intake and Output 10/23/18 10/24/18 19:00 07:00 Intake Total 150 ml Output Total 750 ml Balance -600 ml Intake Oral 150 ml Output Urine Total 750 ml # Voids 2 # Bowel Movements 1 Height (Feet): 4 Height (Inches): 10.00 Weight (Pounds): 124 General Appearance: other - poor po Cardiovascular: normal rate Respiratory/Chest: decreased breath sounds Abdomen: soft Objective PE NO CHANGE Ashok Ann MD Oct 24, 2018 12:46
--- NOTE | 2018-10-24 13:16 | General Progress Note ---
Assessment/Plan Problem List: (1) Altered mental status ICD Codes: R41.82 - Altered mental status, unspecified SNOMED: 552769296 (2) UTI (urinary tract infection) ICD Codes: N39.0 - Urinary tract infection, site not specified SNOMED: 24038674 (3) Encephalopathy ICD Codes: G93.40 - Encephalopathy, unspecified SNOMED: 92868377 Status: progressing Assessment/Plan not eating lethargic sepsis intermittent fever talking to dpoa re routing of feeding consulted dr stoddard encphalopathy due to sepsis Subjective ROS Limited/Unobtainable: Yes Allergies: Coded Allergies: LIANG INHIBITORS (Verified Allergy, Unknown, 11/14/16) Subjective still lethargic and confused Objective Last 24 Hour Vital Signs Date Time Temp Pulse Resp B/P (MAP) Pulse Ox O2 Delivery O2 Flow Rate FiO2 10/24/18 09:00 Room Air Room Air 10/24/18 08:00 76 10/24/18 08:00 96.7 76 18 150/62 (91) 98 10/24/18 05:29 158/79 10/24/18 04:00 97.3 60 20 158/79 (105) 97 10/24/18 04:00 56 10/24/18 00:00 96.0 63 20 148/60 (89) 96 10/24/18 00:00 55 10/23/18 21:00 Room Air Room Air 10/23/18 20:00 60 10/23/18 20:00 97.0 58 20 131/54 (79) 98 10/23/18 17:47 151/76 10/23/18 16:00 79 10/23/18 16:00 97.2 84 18 151/76 (101) 95 Intake and Output 10/23/18 10/24/18 19:00 07:00 Intake Total 150 ml Output Total 750 ml Balance -600 ml Intake Oral 150 ml Output Urine Total 750 ml # Voids 2 # Bowel Movements 1 Height (Feet): 4 Height (Inches): 10.00 Weight (Pounds): 124 General Appearance: lethargic, confused Neck: supple Cardiovascular: normal rate Respiratory/Chest: lungs clear Abdomen: soft Carlos Green MD Oct 24, 2018 13:16
[2018-10-24] MEDS: D5 1/2NS 1,000 ML IV SCH (13:47)
--- NOTE | 2018-10-24 14:26 | NUR ---
RD ASSESSMENT & RECOMMENDATIONS SEE CARE ACTIVITY FOR COMPLETE ASSESSMENT DAILY ESTIMATED NEEDS: Needs based on Cardiac, 56kg 25-30 kcals/kg 4393-0857 total kcals 1-1.2 g protein/kg 56-67 g total protein 25-30 mL/kg 2465-1442 total fluid mLs NUTRITION DIAGNOSIS: Chewing / swallowing difficulty r/t decreased alertness, h/o seizure activity as evidenced by senior consumer insights consultant recs liquify soup like puree/ NTL, poor po intake. CURRENT DIET:Regular liquify puree NTL PO DIET RECOMMENDATIONS: [place]/ regular diet (texture per CHEMICAL P[employer]AGER) ADDITIONAL RECOMMENDATIONS: 1) Obtain a calibrated bed scale wt d/t conflicting wts: Bed scale wt: 134# vs EMR wt: 124# 2) Monitor for po readiness 3) Hypoglycemics w/ diet order 4) * Consult RD if non oral feeds are a part of POC * 5) check lytes daily w/ NPO status 6) Add ENSURE ENLIVE TID w/ meals
[2018-10-24] MEDS ORDERED: Dronabinol 2.5mg Cap ORAL SCH (14:30)
[2018-10-24 16:00] VITALS: BP 145/73
[2018-10-24] MEDS: Dronabinol 2.5mg Cap ORAL SCH (16:19)
--- NOTE | 2018-10-24 18:00 | NUR ---
NURSE NOTES: Pt is developing small skin abrasions/irritations where transpore tape and tegaderms have been on her chest. Non=sting barrier film used to protect skin. Endorsing to other shifts to only use paper tape for nitro-bid and to apply to lower chest/abdomen.
--- NOTE | 2018-10-24 18:55 | General Progress Note ---
Assessment/Plan Assessment/Plan Assessment and Recs: # Erythrocytosis - multiple etiologies, requires higher oxygen demand --> jak2 not required at this time --> give ivf to see if patient potentially dehydrated --> us of the abd can be withheld at this time --> no smoking in future --> currently has improved most likely related to fluid redistribution --> cbc for 10/25 # Hyperproteinemia, elevated protein albumin ratio --> spep is wnl, no mspikes noted on bands --> no sig evidence of kajal, anemia, bony lesions, unlikely myeloma # Altered mental status --> per neuro management --> may need rehab in future # Epileptic seizure, generalized --> as per neuro Greatly appreciate consultation! Subjective Constitutional: Denies: no symptoms, chills, diaphoresis, fever, malaise, weakness, other HEENT: Denies: no symptoms, eye pain, blurred vision, tearing, double vision, ear pain, ear discharge, nose pain, nose congestion, throat pain, throat swelling, mouth pain, mouth swelling, other Cardiovascular: Denies: no symptoms, chest pain, edema, irregular heart rate, lightheadedness, palpitations, syncope, other Respiratory: Denies: no symptoms, cough, orthopnea, shortness of breath, SOB with excertion, SOB at rest, sputum, stridor, wheezing, other Gastrointestinal/Abdominal: Denies: no symptoms, abdomen distended, abdominal pain, black stools, tarry stools, blood in stool, constipated, diarrhea, difficulty swallowing, nausea, poor appetite, poor fluid intake, rectal bleeding , vomiting, other Neurologic/Psychiatric: Denies: no symptoms, anxiety, depressed, emotional problems, headache, numbness, paresthesia, pre-existing deficit, seizure, tingling, tremors, weakness, other Endocrine: Denies: no symptoms, excessive sweating, flushing, intolerance to cold, intolerance to heat, increased hunger, increased thirst, increased urine, unexplained weight gain, unexplained weight loss, other Hematologic/Lymphatic: Denies: no symptoms, anemia, easy bleeding, easy bruising, other Allergies: Coded Allergies: LIANG INHIBITORS (Verified Allergy, Unknown, 11/14/16) Subjective 10/20: seen by bedside, awake, comfortable, no acute events 10/21: swallow eval ordered, speech to eval, remains somewhat lethargic 10/22: awake, comfortable, remains lethargic and confused. 10/24: no major events, skin tears on chest noted, where tegaderm was Objective Last 24 Hour Vital Signs Date Time Temp Pulse Resp B/P (MAP) Pulse Ox O2 Delivery O2 Flow Rate FiO2 10/24/18 17:43 150/62 10/24/18 16:00 97.5 105 18 145/73 (97) 96 10/24/18 16:00 101 10/24/18 13:46 150/62 10/24/18 12:00 67 10/24/18 12:00 97.6 77 18 145/75 (98) 99 10/24/18 09:00 Room Air Room Air 10/24/18 08:00 76 10/24/18 08:00 96.7 76 18 150/62 (91) 98 10/24/18 05:29 158/79 10/24/18 04:00 97.3 60 20 158/79 (105) 97 10/24/18 04:00 56 10/24/18 00:00 96.0 63 20 148/60 (89) 96 10/24/18 00:00 55 10/23/18 21:00 Room Air Room Air 10/23/18 20:00 60 10/23/18 20:00 97.0 58 20 131/54 (79) 98 Intake and Output 10/23/18 10/24/18 18:59 06:59 Intake Total 150 ml Output Total 750 ml Balance -600 ml Intake Oral 150 ml Output Urine Total 750 ml # Voids 2 # Bowel Movements 1 Height (Feet): 4 Height (Inches): 10.00 Weight (Pounds): 124 General Appearance: alert Neck: normal alignment Cardiovascular: normal rate Respiratory/Chest: normal breath sounds Abdomen: no organomegaly Edema: 1+ Leg (L), 1+ Leg (R) Neurologic: alert Skin: warm/dry Objective General Appearance: alert, thin, Chronically Ill Head: atraumatic ENT: normal ENT inspection, hearing grossly normal, normal voice Neck: no bony tend Respiratory: normal inspection, no cwr Gastrointestinal: soft, no guarding, no hernia Genitourinary: no CVA tenderness Musculoskeletal: normal inspection, back normal, normal range of motion Neurologic: motor weakness Psychiatric: depressed affect Skin: normal inspection Charles Gr MD Oct 24, 2018 18:55
--- NOTE | 2018-10-24 19:15 | NUR ---
HAND-OFF: Report given to DE Gong.
[2018-10-24 20:00] VITALS: BP 146/67
--- NOTE | 2018-10-24 21:15 | Consultation ---
DATE OF CONSULTATION: 10/24/2018 CHIEF COMPLAINT: Failure to thrive. HISTORY OF PRESENT ILLNESS: Most of the history is per chart. The patient is unable to give any history. This is a 73-year-old long term patient, who was brought from the long term having seizure-like activity. Apparently, the patient is not eating well. She has history of dementia. She had a swallow evaluation, which she passed for pureed diet, but she is not eating much. So, GI consult requested for further evaluation. PAST MEDICAL HISTORY: 1. Dementia. 2. Seizure disorder. 3. Hyperlipidemia. 4. Cataract. 5. Hypertension. 6. Osteoarthritis. 7. Depression. ALLERGIES: To LIANG inhibitors. MEDICATIONS: Please see medication reconciliation list. SOCIAL HISTORY: Currently, lives in a long term. No recent history of tobacco, alcohol, or drug abuse. FAMILY HISTORY: Noncontributory. REVIEW OF SYSTEMS: Unable to obtain. PAST SURGICAL HISTORY: Unknown. PHYSICAL EXAMINATION: VITAL SIGNS: Temperature 96.7 degrees, pulse 73, respirations 20, and blood pressure is 150/62. HEENT: Normocephalic and atraumatic. No scleral icterus. NECK: Supple. No evidence of lymphadenopathy. CARDIOVASCULAR: Regular rhythm. Plus S1 and S2. LUNGS: Decreased breath sounds bilaterally ____. ABDOMEN: Soft, nontender. No rebound. No guarding. No peritoneal sign. EXTREMITIES: No cyanosis, no clubbing, no edema. LABORATORY AND DIAGNOSTIC DATA: White count 7.2, hemoglobin 12, hematocrit 37, platelet count is 170,000. Chem-7, sodium is 144, potassium 3.2, creatinine is 0.9. ASSESSMENT AND PLAN: A 73-year-old female with history of seizure disorder and dementia, admitted to the hospital with recurrent seizures. The patient is not eating well pureed diet, but the patient is not taking much by mouth. Unfortunately, she did not want any artificial feeding. So, we cannot offer at this time G-tube or NG-tube feeding family changed their mind. So, we encouraged eating at this time. We recommend appetite stimulant with Marinol. We will start 2.5 mg b.i.d. and increase if needed and if the patient tolerates it. If the patient continues to have inappropriate or inadequate p.o. intake, we will continue communicating with family regarding possible change ____ and giving her some feeding. I want to thank Dr. Carlos Green for this kind referral. René Marcelino M.D. DR: Tammy JOB#: [id number] CC: Carlos Green M.D.; Fax#: [phone]
[2018-10-25] VITALS: BP 139/51
[2018-10-25 04:00] VITALS: BP 135/61
[2018-10-25] MEDS: Nitroglycerin 2% oint pkt TOPIC SCH ×3 (06:04→17:23)
[2018-10-25] MEDS: Amoxicillin 250mg/5ml susp 150ml ORAL SCH (06:04)
[2018-10-25 07:02] LABS: BASOPHILS % (AUTO) 0.8 % (0.0-2.0); EOSINOPHILS % (AUTO) 1.7 % (0.0-3.0); HEMATOCRIT 38.7 % (37.0-47.0); HEMOGLOBIN 13.3 G/DL (12.0-16.0); LYMPHOCYTES % (AUTO) 26.8 % (20.0-45.0); MEAN CORPUSCULAR VOLUME 85 FL (80-99); MONOCYTES % (AUTO) 10.2 % (1.0-10.0); NEUTROPHILS % (AUTO) 60.4 % (45.0-75.0); PLATELET COUNT 208 K/UL (150-450); RED BLOOD COUNT 4.55 M/UL (4.20-5.40); RED CELL DISTRIBUTION WIDTH 12.6 % (11.6-14.8); WHITE BLOOD COUNT 6.4 K/UL (4.8-10.8)
--- NOTE | 2018-10-25 07:18 | NUR ---
HAND-OFF: Report given to DE Chung.
[2018-10-25 07:21] LABS: ALANINE AMINOTRANSFERASE 55 U/L (12-78); ALBUMIN 2.3 G/DL (3.4-5.0); ALBUMIN/GLOBULIN RATIO 0.6 (1.0-2.7); ALKALINE PHOSPHATASE 105 U/L (46-116); ANION GAP 8 mmol/L (5-15); ASPARTATE AMINO TRANSFERASE 26 U/L (15-37); BILIRUBIN,TOTAL 0.6 MG/DL (0.2-1.0); BLOOD UREA NITROGEN 8 mg/dL (7-18); CALCIUM 8.6 MG/DL (8.5-10.1); CARBON DIOXIDE 22 MMOL/L (21-32); CHLORIDE 112 MMOL/L (98-107); CREATININE 0.8 MG/DL (0.55-1.30); PHOSPHORUS 3.2 MG/DL (2.5-4.9); POTASSIUM 3.7 MMOL/L (3.5-5.1); SODIUM 142 MMOL/L (136-145)
[2018-10-25 08:00] VITALS: BP 138/58
--- NOTE | 2018-10-25 08:02 | NUR ---
NURSE NOTES: Received report from DE Gong. Pt is sleeping in bed. No distress noted. Bed is in lowest position, side rails up X2, and call light is within reach. Will continue to monitor.
[2018-10-25] MEDS: levETIRAcetam 500mg/NS100ml 100 ML IVPB SCH ×2 (09:11→21:47)
[2018-10-25] MEDS: Heparin 5000 units/ml inj SUBQ SCH ×2 (09:11→21:48)
--- NOTE | 2018-10-25 09:57 | GI Progress Note ---
Assessment/Plan Problems: (1) Failure to thrive SNOMED: 96530060 (2) Dehydration ICD Codes: E86.0 - Dehydration SNOMED: 63663049 (3) Severe malnutrition ICD Codes: E43 - Unspecified severe protein-calorie malnutrition SNOMED: 52314924 (4) Encephalopathy ICD Codes: G93.40 - Encephalopathy, unspecified SNOMED: 15427366 (5) Altered mental status ICD Codes: R41.82 - Altered mental status, unspecified SNOMED: 556192246 Status: unchanged Status Narrative Discussed with Dr. Marcelino Assessment/Plan Family refusing G-tube or NG tube feeding We will add calorie count Marinol for appetite stimulant One-to-one feeder Supportive care Zofran as needed The patient was seen and examined at bedside and all new and available data was reviewed in the patients chart. I agree with the above findings, impression and plan. (Patient seen earlier today. Signature stamp does not reflect patient encounter time.). - René Marcelino MD Subjective Subjective Limited Objective Last 24 Hour Vital Signs Date Time Temp Pulse Resp B/P (MAP) Pulse Ox O2 Delivery O2 Flow Rate FiO2 10/25/18 06:04 135/61 10/25/18 04:00 51 10/25/18 04:00 99.3 83 20 135/61 (85) 98 10/25/18 00:00 97.7 76 20 139/51 (80) 95 10/25/18 00:00 54 10/24/18 21:00 Room Air Room Air 10/24/18 20:00 98.0 75 18 146/67 (93) 98 10/24/18 20:00 75 10/24/18 17:43 150/62 10/24/18 16:00 97.5 105 18 145/73 (97) 96 10/24/18 16:00 101 10/24/18 13:46 150/62 10/24/18 12:00 67 10/24/18 12:00 97.6 77 18 145/75 (98) 99 Intake and Output 10/24/18 10/25/18 19:00 07:00 Intake Total 360 ml 970.7 ml Output Total 150 ml Balance 210 ml 970.7 ml Intake Oral 360 ml IV Total 970.7 ml Output Urine Total 150 ml # Voids 3 # Bowel Movements 1 Laboratory Tests Test 10/25/18 06:15 White Blood Count 6.4 K/UL (4.8-10.8) Red Blood Count 4.55 M/UL (4.20-5.40) Hemoglobin 13.3 G/DL (12.0-16.0) Hematocrit 38.7 % (37.0-47.0) Mean Corpuscular Volume 85 FL (80-99) Mean Corpuscular Hemoglobin 29.2 PG (27.0-31.0) Mean Corpuscular Hemoglobin Concent 34.3 G/DL (32.0-36.0) Red Cell Distribution Width 12.6 % (11.6-14.8) Platelet Count 208 K/UL (150-450) Mean Platelet Volume 5.3 FL (6.5-10.1) L Neutrophils (%) (Auto) 60.4 % (45.0-75.0) Lymphocytes (%) (Auto) 26.8 % (20.0-45.0) Monocytes (%) (Auto) 10.2 % (1.0-10.0) H Eosinophils (%) (Auto) 1.7 % (0.0-3.0) Basophils (%) (Auto) 0.8 % (0.0-2.0) Sodium Level 142 MMOL/L (136-145) Potassium Level 3.7 MMOL/L (3.5-5.1) Chloride Level 112 MMOL/L (98-107) H Carbon Dioxide Level 22 MMOL/L (21-32) Anion Gap 8 mmol/L (5-15) Blood Urea Nitrogen 8 mg/dL (7-18) Creatinine 0.8 MG/DL (0.55-1.30) Estimat Glomerular Filtration Rate mL/min (>60) Glucose Level 123 MG/DL (74-106) H Calcium Level 8.6 MG/DL (8.5-10.1) Phosphorus Level 3.2 MG/DL (2.5-4.9) Magnesium Level 2.1 MG/DL (1.8-2.4) Total Bilirubin 0.6 MG/DL (0.2-1.0) Aspartate Amino Transf (AST/SGOT) 26 U/L (15-37) Alanine Aminotransferase (ALT/SGPT) 55 U/L (12-78) Alkaline Phosphatase 105 U/L (46-116) Total Protein 6.3 G/DL (6.4-8.2) L Albumin 2.3 G/DL (3.4-5.0) L Globulin 4.0 g/dL Albumin/Globulin Ratio 0.6 (1.0-2.7) L Height (Feet): 4 Height (Inches): 10.00 Weight (Pounds): 124 General Appearance: WD/WN, no apparent distress, alert Cardiovascular: normal rate Respiratory/Chest: normal breath sounds, no respiratory distress Abdominal Exam: normal bowel sounds, non tender, soft Extremities: non-tender Objective Poor p.o. intake as reported by the RN Hugh Thomason NP Oct 25, 2018 09:57
[2018-10-25] MEDS: D5 1/2NS 1,000 ML IV SCH (10:51)
--- NOTE | 2018-10-25 10:56 | Infectious Diseases Prog Note ---
Assessment/Plan Assessment/Plan antibiotics : amoxicillin A 1. streptococcus UTI s/p rx 2. leucocytosis resolved 3. dementia 4. depression 5. hypertension P 1. d/c amoxicillin 2. observe off antibiotics Subjective ROS Limited/Unobtainable: Yes Allergies: Coded Allergies: LIANG INHIBITORS (Verified Allergy, Unknown, 11/14/16) Objective Vital Signs Last 24 Hour Vital Signs Date Time Temp Pulse Resp B/P (MAP) Pulse Ox O2 Delivery O2 Flow Rate FiO2 10/25/18 09:00 Room Air Room Air 10/25/18 08:00 97.2 57 22 138/58 (84) 98 10/25/18 08:00 55 10/25/18 06:04 135/61 10/25/18 04:00 51 10/25/18 04:00 99.3 83 20 135/61 (85) 98 10/25/18 00:00 97.7 76 20 139/51 (80) 95 10/25/18 00:00 54 10/24/18 21:00 Room Air Room Air 10/24/18 20:00 98.0 75 18 146/67 (93) 98 10/24/18 20:00 75 10/24/18 17:43 150/62 10/24/18 16:00 97.5 105 18 145/73 (97) 96 10/24/18 16:00 101 10/24/18 13:46 150/62 10/24/18 12:00 67 10/24/18 12:00 97.6 77 18 145/75 (98) 99 Height (Feet): 4 Height (Inches): 10.00 Weight (Pounds): 124 Respiratory/Chest: lungs clear Cardiovascular: normal rate, regular rhythm, no gallop/murmur Abdomen: soft, non tender Extremities: no edema Laboratory Tests Test 10/25/18 06:15 White Blood Count 6.4 K/UL (4.8-10.8) Red Blood Count 4.55 M/UL (4.20-5.40) Hemoglobin 13.3 G/DL (12.0-16.0) Hematocrit 38.7 % (37.0-47.0) Mean Corpuscular Volume 85 FL (80-99) Mean Corpuscular Hemoglobin 29.2 PG (27.0-31.0) Mean Corpuscular Hemoglobin Concent 34.3 G/DL (32.0-36.0) Red Cell Distribution Width 12.6 % (11.6-14.8) Platelet Count 208 K/UL (150-450) Mean Platelet Volume 5.3 FL (6.5-10.1) L Neutrophils (%) (Auto) 60.4 % (45.0-75.0) Lymphocytes (%) (Auto) 26.8 % (20.0-45.0) Monocytes (%) (Auto) 10.2 % (1.0-10.0) H Eosinophils (%) (Auto) 1.7 % (0.0-3.0) Basophils (%) (Auto) 0.8 % (0.0-2.0) Sodium Level 142 MMOL/L (136-145) Potassium Level 3.7 MMOL/L (3.5-5.1) Chloride Level 112 MMOL/L (98-107) H Carbon Dioxide Level 22 MMOL/L (21-32) Anion Gap 8 mmol/L (5-15) Blood Urea Nitrogen 8 mg/dL (7-18) Creatinine 0.8 MG/DL (0.55-1.30) Estimat Glomerular Filtration Rate mL/min (>60) Glucose Level 123 MG/DL (74-106) H Calcium Level 8.6 MG/DL (8.5-10.1) Phosphorus Level 3.2 MG/DL (2.5-4.9) Magnesium Level 2.1 MG/DL (1.8-2.4) Total Bilirubin 0.6 MG/DL (0.2-1.0) Aspartate Amino Transf (AST/SGOT) 26 U/L (15-37) Alanine Aminotransferase (ALT/SGPT) 55 U/L (12-78) Alkaline Phosphatase 105 U/L (46-116) Total Protein 6.3 G/DL (6.4-8.2) L Albumin 2.3 G/DL (3.4-5.0) L Globulin 4.0 g/dL Albumin/Globulin Ratio 0.6 (1.0-2.7) L Current Medications Medications (Trade) Dose Ordered Sig/Román Route PRN Reason Start Time Stop Time Status Last Admin Dose Admin Acetaminophen (Tylenol) 500 mg Q4H PRN ORAL Mild Pain/Temp > 100.5 10/18/18 17:15 11/17/18 17:14 Acetaminophen (Tylenol) 650 mg Q4H PRN RECTAL Mild Pain/Temp > 100.5 10/19/18 01:00 11/18/18 00:59 10/23/18 06:04 Amoxicillin (Amoxil) 500 mg EVERY 8 HOURS ORAL 10/22/18 14:00 10/25/18 13:59 10/25/18 06:04 Dextrose/Sodium Chloride 1,000 ml @ 50 mls/hr Q20H IV 10/24/18 14:00 11/23/18 13:59 10/25/18 10:51 Dronabinol (Marinol) 2.5 mg ONCE ORAL 10/24/18 16:30 11/23/18 17:30 10/24/18 16:19 Heparin Sodium (Porcine) (Heparin 5000 units/ml) 5,000 units EVERY 12 HOURS SUBQ 10/18/18 21:00 11/17/18 20:59 10/25/18 09:11 Hydralazine HCl (Apresoline) 10 mg Q4H PRN IV bp over 160 syst 10/19/18 09:15 11/18/18 09:14 10/23/18 04:30 Levetiracetam 100 ml @ 400 mls/hr Q12HR IVPB 10/23/18 12:00 11/22/18 11:59 10/25/18 09:11 Lorazepam (Ativan 2mg/ml 1ml) 2 mg Q4H PRN IV For Seizures 10/18/18 19:00 10/25/18 18:59 Nitroglycerin (Nitro-Bid) 1 inch TID@0600,1200,1800 TOPIC 10/19/18 12:00 11/18/18 11:59 10/25/18 06:04 Pantoprazole (Protonix) 40 mg DAILY ORAL 10/22/18 09:00 11/21/18 08:59 10/25/18 09:12 Johnathan Singh MD Oct 25, 2018 10:56
--- NOTE | 2018-10-25 11:37 | NUR ---
NURSE NOTES: Pt is not responding to any questions. No indication of pain noted. Will continue to monitor.
[2018-10-25 12:00] VITALS: BP 147/54
--- NOTE | 2018-10-25 12:36 | Nephrology Progress Note ---
Assessment/Plan Problem List: (1) Epileptic seizure, generalized (2) UTI (urinary tract infection) (3) Encephalopathy Assessment Acute Encephalopathy UTI Sepsis, leukocytosis Sz Plan RN Reports hard po intake ! will change anti Sz meds to IV ? PEG ? other meds po DC rodrigues Rodrigues IV fluids Correct lytes antibiotics, Zosyn start po per ST Gastric support, pepcid anti Sz meds monitor neuro status ? DC planning DC Monitor Subjective ROS Limited/Unobtainable: No Objective Objective Last 24 Hour Vital Signs Date Time Temp Pulse Resp B/P (MAP) Pulse Ox O2 Delivery O2 Flow Rate FiO2 10/25/18 12:00 97.9 62 17 147/54 (85) 99 10/25/18 11:52 147/54 10/25/18 09:00 Room Air Room Air 10/25/18 08:00 97.2 57 22 138/58 (84) 98 10/25/18 08:00 55 10/25/18 06:04 135/61 10/25/18 04:00 51 10/25/18 04:00 99.3 83 20 135/61 (85) 98 10/25/18 00:00 97.7 76 20 139/51 (80) 95 10/25/18 00:00 54 10/24/18 21:00 Room Air Room Air 10/24/18 20:00 98.0 75 18 146/67 (93) 98 10/24/18 20:00 75 10/24/18 17:43 150/62 10/24/18 16:00 97.5 105 18 145/73 (97) 96 10/24/18 16:00 101 10/24/18 13:46 150/62 Intake and Output 10/24/18 10/25/18 19:00 07:00 Intake Total 360 ml 970.7 ml Output Total 150 ml Balance 210 ml 970.7 ml Intake Oral 360 ml IV Total 970.7 ml Output Urine Total 150 ml # Voids 3 # Bowel Movements 1 Laboratory Tests 10/25/18 06:15: White Blood Count 6.4, Red Blood Count 4.55, Hemoglobin 13.3, Hematocrit 38.7, Mean Corpuscular Volume 85, Mean Corpuscular Hemoglobin 29.2, Mean Corpuscular Hemoglobin Concent 34.3, Red Cell Distribution Width 12.6, Platelet Count 208, Mean Platelet Volume 5.3L, Neutrophils (%) (Auto) 60.4, Lymphocytes (%) (Auto) 26.8, Monocytes (%) (Auto) 10.2H, Eosinophils (%) (Auto) 1.7, Basophils (%) ( Auto) 0.8, Sodium Level 142, Potassium Level 3.7, Chloride Level 112H, Carbon Dioxide Level 22, Anion Gap 8, Blood Urea Nitrogen 8, Creatinine 0.8, Estimat Glomerular Filtration Rate , Glucose Level 123H, Calcium Level 8.6, Phosphorus Level 3.2, Magnesium Level 2.1, Total Bilirubin 0.6, Aspartate Amino Transf (AST /SGOT) 26, Alanine Aminotransferase (ALT/SGPT) 55, Alkaline Phosphatase 105, Total Protein 6.3L, Albumin 2.3L, Globulin 4.0, Albumin/Globulin Ratio 0.6L Height (Feet): 4 Height (Inches): 10.00 Weight (Pounds): 124 General Appearance: no apparent distress Objective PE NO CHANGE Ashok Ann MD Oct 25, 2018 12:36
--- NOTE | 2018-10-25 14:49 | General Progress Note ---
Assessment/Plan Problem List: (1) Altered mental status ICD Codes: R41.82 - Altered mental status, unspecified SNOMED: 222234420 (2) UTI (urinary tract infection) ICD Codes: N39.0 - Urinary tract infection, site not specified SNOMED: 78274137 (3) Encephalopathy ICD Codes: G93.40 - Encephalopathy, unspecified SNOMED: 78658542 Status: progressing Assessment/Plan confused nonverbal reviewed chart talking to dpoa re routing of feeding consulted dr stoddard encphalopathy due to sepsis Subjective ROS Limited/Unobtainable: Yes Allergies: Coded Allergies: LIANG INHIBITORS (Verified Allergy, Unknown, 11/14/16) Subjective still lethargic and confused Objective Last 24 Hour Vital Signs Date Time Temp Pulse Resp B/P (MAP) Pulse Ox O2 Delivery O2 Flow Rate FiO2 10/25/18 12:00 97.9 62 17 147/54 (85) 99 10/25/18 11:52 147/54 10/25/18 09:00 Room Air Room Air 10/25/18 08:00 97.2 57 22 138/58 (84) 98 10/25/18 08:00 55 10/25/18 06:04 135/61 10/25/18 04:00 51 10/25/18 04:00 99.3 83 20 135/61 (85) 98 10/25/18 00:00 97.7 76 20 139/51 (80) 95 10/25/18 00:00 54 10/24/18 21:00 Room Air Room Air 10/24/18 20:00 98.0 75 18 146/67 (93) 98 10/24/18 20:00 75 10/24/18 17:43 150/62 10/24/18 16:00 97.5 105 18 145/73 (97) 96 10/24/18 16:00 101 Intake and Output 10/24/18 10/25/18 18:59 06:59 Intake Total 360 ml 920.7 ml Output Total 150 ml Balance 210 ml 920.7 ml Intake Oral 360 ml IV Total 920.7 ml Output Urine Total 150 ml # Voids 3 # Bowel Movements 1 Laboratory Tests 10/25/18 06:15: White Blood Count 6.4, Red Blood Count 4.55, Hemoglobin 13.3, Hematocrit 38.7, Mean Corpuscular Volume 85, Mean Corpuscular Hemoglobin 29.2, Mean Corpuscular Hemoglobin Concent 34.3, Red Cell Distribution Width 12.6, Platelet Count 208, Mean Platelet Volume 5.3L, Neutrophils (%) (Auto) 60.4, Lymphocytes (%) (Auto) 26.8, Monocytes (%) (Auto) 10.2H, Eosinophils (%) (Auto) 1.7, Basophils (%) ( Auto) 0.8, Sodium Level 142, Potassium Level 3.7, Chloride Level 112H, Carbon Dioxide Level 22, Anion Gap 8, Blood Urea Nitrogen 8, Creatinine 0.8, Estimat Glomerular Filtration Rate , Glucose Level 123H, Calcium Level 8.6, Phosphorus Level 3.2, Magnesium Level 2.1, Total Bilirubin 0.6, Aspartate Amino Transf (AST /SGOT) 26, Alanine Aminotransferase (ALT/SGPT) 55, Alkaline Phosphatase 105, Total Protein 6.3L, Albumin 2.3L, Globulin 4.0, Albumin/Globulin Ratio 0.6L Height (Feet): 4 Height (Inches): 10.00 Weight (Pounds): 124 EENT: PERRL/EOMI Cardiovascular: regular rhythm Carlos Green MD Oct 25, 2018 14:49
[2018-10-25 16:00] VITALS: BP 159/68
--- NOTE | 2018-10-25 16:09 | General Progress Note ---
Assessment/Plan Assessment/Plan Assessment and Recs: # Erythrocytosis - multiple etiologies, requires higher oxygen demand --> jak2 not required at this time --> give ivf to see if patient potentially dehydrated --> us of the abd can be withheld at this time --> no smoking in future --> currently has improved most likely related to fluid redistribution --> cbc for 10/25 # Hyperproteinemia, elevated protein albumin ratio --> spep is wnl, no mspikes noted on bands --> no sig evidence of kajal, anemia, bony lesions, unlikely myeloma # Altered mental status --> per neuro management --> may need rehab in future # Epileptic seizure, generalized --> as per neuro Greatly appreciate consultation! Subjective Constitutional: Denies: no symptoms, chills, diaphoresis, fever, malaise, weakness, other HEENT: Denies: no symptoms, eye pain, blurred vision, tearing, double vision, ear pain, ear discharge, nose pain, nose congestion, throat pain, throat swelling, mouth pain, mouth swelling, other Cardiovascular: Denies: no symptoms, chest pain, edema, irregular heart rate, lightheadedness, palpitations, syncope, other Respiratory: Denies: no symptoms, cough, orthopnea, shortness of breath, SOB with excertion, SOB at rest, sputum, stridor, wheezing, other Gastrointestinal/Abdominal: Denies: no symptoms, abdomen distended, abdominal pain, black stools, tarry stools, blood in stool, constipated, diarrhea, difficulty swallowing, nausea, poor appetite, poor fluid intake, rectal bleeding , vomiting, other Genitourinary: Denies: no symptoms, burning, discharge, frequency, flank pain, hematuria, incontinence, pain, urgency, other Neurologic/Psychiatric: Denies: no symptoms, anxiety, depressed, emotional problems, headache, numbness, paresthesia, pre-existing deficit, seizure, tingling, tremors, weakness, other Endocrine: Denies: no symptoms, excessive sweating, flushing, intolerance to cold, intolerance to heat, increased hunger, increased thirst, increased urine, unexplained weight gain, unexplained weight loss, other Hematologic/Lymphatic: Denies: no symptoms, anemia, easy bleeding, easy bruising, other Allergies: Coded Allergies: LIANG INHIBITORS (Verified Allergy, Unknown, 11/14/16) Subjective 10/20: seen by bedside, awake, comfortable, no acute events 10/21: swallow eval ordered, speech to eval, remains somewhat lethargic 10/22: awake, comfortable, remains lethargic and confused. 10/24: no major events, skin tears on chest noted, where tegaderm was 10/25: seen by bedside, still lethargic and confused Objective Last 24 Hour Vital Signs Date Time Temp Pulse Resp B/P (MAP) Pulse Ox O2 Delivery O2 Flow Rate FiO2 10/25/18 12:00 97.9 62 17 147/54 (85) 99 10/25/18 11:52 147/54 10/25/18 09:00 Room Air Room Air 10/25/18 08:00 97.2 57 22 138/58 (84) 98 10/25/18 08:00 55 10/25/18 06:04 135/61 10/25/18 04:00 51 10/25/18 04:00 99.3 83 20 135/61 (85) 98 10/25/18 00:00 97.7 76 20 139/51 (80) 95 10/25/18 00:00 54 10/24/18 21:00 Room Air Room Air 10/24/18 20:00 98.0 75 18 146/67 (93) 98 10/24/18 20:00 75 10/24/18 17:43 150/62 Intake and Output 10/24/18 10/25/18 19:00 07:00 Intake Total 360 ml 970.7 ml Output Total 150 ml Balance 210 ml 970.7 ml Intake Oral 360 ml IV Total 970.7 ml Output Urine Total 150 ml # Voids 3 # Bowel Movements 1 Laboratory Tests 10/25/18 06:15: White Blood Count 6.4, Red Blood Count 4.55, Hemoglobin 13.3, Hematocrit 38.7, Mean Corpuscular Volume 85, Mean Corpuscular Hemoglobin 29.2, Mean Corpuscular Hemoglobin Concent 34.3, Red Cell Distribution Width 12.6, Platelet Count 208, Mean Platelet Volume 5.3L, Neutrophils (%) (Auto) 60.4, Lymphocytes (%) (Auto) 26.8, Monocytes (%) (Auto) 10.2H, Eosinophils (%) (Auto) 1.7, Basophils (%) ( Auto) 0.8, Sodium Level 142, Potassium Level 3.7, Chloride Level 112H, Carbon Dioxide Level 22, Anion Gap 8, Blood Urea Nitrogen 8, Creatinine 0.8, Estimat Glomerular Filtration Rate , Glucose Level 123H, Calcium Level 8.6, Phosphorus Level 3.2, Magnesium Level 2.1, Total Bilirubin 0.6, Aspartate Amino Transf (AST /SGOT) 26, Alanine Aminotransferase (ALT/SGPT) 55, Alkaline Phosphatase 105, Total Protein 6.3L, Albumin 2.3L, Globulin 4.0, Albumin/Globulin Ratio 0.6L Height (Feet): 4 Height (Inches): 10.00 Weight (Pounds): 124 Objective General Appearance: alert, thin, Chronically Ill Head: atraumatic ENT: normal ENT inspection, hearing grossly normal, normal voice Neck: no bony tend Respiratory: normal inspection, no cwr Gastrointestinal: soft, no guarding, no hernia Genitourinary: no CVA tenderness Musculoskeletal: normal inspection, back normal, normal range of motion Neurologic: motor weakness Psychiatric: depressed affect Skin: normal inspection Charles Gr MD Oct 25, 2018 16:09
--- NOTE | 2018-10-25 16:45 | NUR ---
NURSE Notes: Called pharmacy regarding missing medication. Per pharmacy, [facility] should have some
[2018-10-25] MEDS: Dronabinol 2.5mg Cap ORAL SCH (17:58)
[2018-10-25] MEDS ORDERED: NS 275ml ONE (19:55)
[2018-10-25 20:00] VITALS: BP 115/72
--- NOTE | 2018-10-25 20:00 | NUR ---
NURSE NOTES: recdv pt. Pt is AOX1- name only. Pt is on room air with no sign of resp distress or sob. Pt is on fall, seizure and asp precaution. Pt has purewick in place and draining. Pt has IV site c/d/i and running D51/2NS @50cc/hr. Pt is awaiting SNF placement. Bed is in lowest position, bed alarm is on, abner continue with plan of care.
--- NOTE | 2018-10-25 20:12 | NUR ---
HAND-OFF: Report given to DE Ivan. Plan of care endorsed
--- NOTE | 2018-10-25 21:52 | Diagnostic Imaging Report ---
APPROVED REPORT CPT Code: 06904 Present Symptoms Shortness of breath Comments: Pain BILATERAL: Imaging reveals a patent deep venous system bilaterally. There is no evidence of thrombus within the common femoral, superficial femoral, popliteal or tibial segments. The greater saphenous veins are also within normal limits. Doppler indicates normal spontaneous flow within these segments.
[2018-10-26] VITALS: BP 118/68
[2018-10-26 04:00] VITALS: BP 157/66
[2018-10-26] MEDS: D5 1/2NS 1,000 ML IV SCH (06:29)
[2018-10-26] MEDS: Nitroglycerin 2% oint pkt TOPIC SCH ×3 (06:30→18:15)
[2018-10-26 07:53] LABS: EOSINOPHILS % (AUTO) 2.2 % (0.0-3.0); HEMATOCRIT 40.1 % (37.0-47.0); HEMOGLOBIN 13.7 G/DL (12.0-16.0); MEAN CORPUSCULAR VOLUME 86 FL (80-99); MONOCYTES % (AUTO) 10.6 % (1.0-10.0); NEUTROPHILS % (AUTO) 55.3 % (45.0-75.0); PLATELET COUNT 221 K/UL (150-450); RED BLOOD COUNT 4.67 M/UL (4.20-5.40); WHITE BLOOD COUNT 5.1 K/UL (4.8-10.8)
[2018-10-26 08:00] VITALS: BP 142/76
--- NOTE | 2018-10-26 08:20 | NUR ---
NURSE NOTES: Received patient in bed sleeping from DE Ivan, no s/s of acute distress noted. Patient opens eyes spontaneously. Patient is on room air with no sign of respiratory distress or sob noted. Bed is on lowest position with bedside rails up x3, on fall, seizure and aspiration precaution. Pt has purewick in place and draining. IV site is intact and patent, running D5 1/2NS @50cc/hr. Call light is within reach. Will continue with the plan of care.
[2018-10-26 08:21] LABS: PHOSPHORUS 3.2 MG/DL (2.5-4.9)
[2018-10-26 08:49] LABS: ANION GAP 10 mmol/L (5-15); BLOOD UREA NITROGEN 6 mg/dL (7-18); CALCIUM 8.4 MG/DL (8.5-10.1); CARBON DIOXIDE 21 MMOL/L (21-32); CHLORIDE 111 MMOL/L (98-107); CREATININE 0.7 MG/DL (0.55-1.30); POTASSIUM 3.6 MMOL/L (3.5-5.1); SODIUM 142 MMOL/L (136-145)
[2018-10-26] MEDS: levETIRAcetam 500mg/NS100ml 100 ML IVPB SCH ×2 (09:29→21:31)
[2018-10-26] MEDS: Heparin 5000 units/ml inj SUBQ SCH ×2 (09:30→21:40)
--- NOTE | 2018-10-26 10:42 | Infectious Diseases Prog Note ---
Assessment/Plan Assessment/Plan A: 1. Strep group B UTI. 2. Encephalopathy.toxic-metabolic 3. Altered mental status. 4. Dementia. 5. Major depressive disorder. 6. Hypertension. RECOMMENDATION: Observe off antibiotic Family doesn't want GT placement Subjective ROS Limited/Unobtainable: Yes Constitutional: Reports: anorexia Allergies: Coded Allergies: LIANG INHIBITORS (Verified Allergy, Unknown, 11/14/16) Objective Vital Signs Last 24 Hour Vital Signs Date Time Temp Pulse Resp B/P (MAP) Pulse Ox O2 Delivery O2 Flow Rate FiO2 10/26/18 06:30 157/66 10/26/18 04:00 53 10/26/18 04:00 97.9 63 17 157/66 (96) 97 10/26/18 00:00 61 10/26/18 00:00 97.7 61 18 118/68 (85) 96 10/25/18 22:41 Room Air Room Air 10/25/18 20:00 97.5 59 16 115/72 (86) 96 10/25/18 20:00 64 10/25/18 17:23 159/68 10/25/18 16:00 61 10/25/18 16:00 97.0 58 22 159/68 (98) 98 10/25/18 12:00 60 10/25/18 12:00 97.9 62 17 147/54 (85) 99 10/25/18 11:52 147/54 Height (Feet): 4 Height (Inches): 10.00 Weight (Pounds): 124 General Appearance: no acute distress HEENT: mucous membranes moist Respiratory/Chest: lungs clear Cardiovascular: normal rate Abdomen: soft, non tender Extremities: no edema Neurologic/Psychiatric: unresponsiveness Laboratory Tests Test 10/26/18 06:51 White Blood Count 5.1 K/UL (4.8-10.8) Red Blood Count 4.67 M/UL (4.20-5.40) Hemoglobin 13.7 G/DL (12.0-16.0) Hematocrit 40.1 % (37.0-47.0) Mean Corpuscular Volume 86 FL (80-99) Mean Corpuscular Hemoglobin 29.3 PG (27.0-31.0) Mean Corpuscular Hemoglobin Concent 34.1 G/DL (32.0-36.0) Red Cell Distribution Width 13.0 % (11.6-14.8) Platelet Count 221 K/UL (150-450) Mean Platelet Volume 5.3 FL (6.5-10.1) L Neutrophils (%) (Auto) 55.3 % (45.0-75.0) Lymphocytes (%) (Auto) 31.0 % (20.0-45.0) Monocytes (%) (Auto) 10.6 % (1.0-10.0) H Eosinophils (%) (Auto) 2.2 % (0.0-3.0) Basophils (%) (Auto) 1.0 % (0.0-2.0) Sodium Level 142 MMOL/L (136-145) Potassium Level 3.6 MMOL/L (3.5-5.1) Chloride Level 111 MMOL/L (98-107) H Carbon Dioxide Level 21 MMOL/L (21-32) Anion Gap 10 mmol/L (5-15) Blood Urea Nitrogen 6 mg/dL (7-18) L Creatinine 0.7 MG/DL (0.55-1.30) Estimat Glomerular Filtration Rate mL/min (>60) Glucose Level 115 MG/DL (74-106) H Calcium Level 8.4 MG/DL (8.5-10.1) L Phosphorus Level 3.2 MG/DL (2.5-4.9) Magnesium Level 2.1 MG/DL (1.8-2.4) Current Medications Medications (Trade) Dose Ordered Sig/Román Route PRN Reason Start Time Stop Time Status Last Admin Dose Admin Acetaminophen (Tylenol) 500 mg Q4H PRN ORAL Mild Pain/Temp > 100.5 10/18/18 17:15 11/17/18 17:14 Acetaminophen (Tylenol) 650 mg Q4H PRN RECTAL Mild Pain/Temp > 100.5 10/19/18 01:00 11/18/18 00:59 10/23/18 06:04 Dextrose/Sodium Chloride 1,000 ml @ 50 mls/hr Q20H IV 10/24/18 14:00 11/23/18 13:59 10/26/18 06:29 Dronabinol (Marinol) 2.5 mg ONCE ORAL 10/24/18 16:30 11/23/18 17:30 10/25/18 17:58 Heparin Sodium (Porcine) (Heparin 5000 units/ml) 5,000 units EVERY 12 HOURS SUBQ 10/18/18 21:00 11/17/18 20:59 10/26/18 09:30 Hydralazine HCl (Apresoline) 10 mg Q4H PRN IV bp over 160 syst 10/19/18 09:15 11/18/18 09:14 10/23/18 04:30 Levetiracetam 100 ml @ 400 mls/hr Q12HR IVPB 10/23/18 12:00 11/22/18 11:59 10/26/18 09:29 Nitroglycerin (Nitro-Bid) 1 inch TID@0600,1200,1800 TOPIC 10/19/18 12:00 11/18/18 11:59 10/26/18 06:30 Pantoprazole (Protonix) 40 mg DAILY ORAL 10/22/18 09:00 11/21/18 08:59 10/26/18 09:28 Landon Pagan MD Oct 26, 2018 10:42
--- NOTE | 2018-10-26 10:58 | GI Progress Note ---
Assessment/Plan Problems: (1) Failure to thrive SNOMED: 24918117 (2) Dehydration ICD Codes: E86.0 - Dehydration SNOMED: 33645146 (3) Severe malnutrition ICD Codes: E43 - Unspecified severe protein-calorie malnutrition SNOMED: 73666410 (4) Encephalopathy ICD Codes: G93.40 - Encephalopathy, unspecified SNOMED: 27439115 (5) Altered mental status ICD Codes: R41.82 - Altered mental status, unspecified SNOMED: 600490021 Status: unchanged Status Narrative Discussed with Dr. Marcelino. Assessment/Plan Family refusing G-tube or NG tube feeding We will add calorie count Marinol for appetite stimulant One-to-one feeder Supportive care Zofran as needed The patient was seen and examined at bedside and all new and available data was reviewed in the patients chart. I agree with the above findings, impression and plan. (Patient seen earlier today. Signature stamp does not reflect patient encounter time.). - René Marcelino MD Subjective Subjective Limited Objective Last 24 Hour Vital Signs Date Time Temp Pulse Resp B/P (MAP) Pulse Ox O2 Delivery O2 Flow Rate FiO2 10/26/18 06:30 157/66 10/26/18 04:00 53 10/26/18 04:00 97.9 63 17 157/66 (96) 97 10/26/18 00:00 61 10/26/18 00:00 97.7 61 18 118/68 (85) 96 10/25/18 22:41 Room Air Room Air 10/25/18 20:00 97.5 59 16 115/72 (86) 96 10/25/18 20:00 64 10/25/18 17:23 159/68 10/25/18 16:00 61 10/25/18 16:00 97.0 58 22 159/68 (98) 98 10/25/18 12:00 60 10/25/18 12:00 97.9 62 17 147/54 (85) 99 10/25/18 11:52 147/54 Intake and Output 10/25/18 10/26/18 19:00 07:00 Intake Total 240 ml Output Total 1600 ml Balance -1360 ml Intake Oral 240 ml Output Urine Total 1600 ml # Voids 3 Laboratory Tests Test 10/26/18 06:51 White Blood Count 5.1 K/UL (4.8-10.8) Red Blood Count 4.67 M/UL (4.20-5.40) Hemoglobin 13.7 G/DL (12.0-16.0) Hematocrit 40.1 % (37.0-47.0) Mean Corpuscular Volume 86 FL (80-99) Mean Corpuscular Hemoglobin 29.3 PG (27.0-31.0) Mean Corpuscular Hemoglobin Concent 34.1 G/DL (32.0-36.0) Red Cell Distribution Width 13.0 % (11.6-14.8) Platelet Count 221 K/UL (150-450) Mean Platelet Volume 5.3 FL (6.5-10.1) L Neutrophils (%) (Auto) 55.3 % (45.0-75.0) Lymphocytes (%) (Auto) 31.0 % (20.0-45.0) Monocytes (%) (Auto) 10.6 % (1.0-10.0) H Eosinophils (%) (Auto) 2.2 % (0.0-3.0) Basophils (%) (Auto) 1.0 % (0.0-2.0) Sodium Level 142 MMOL/L (136-145) Potassium Level 3.6 MMOL/L (3.5-5.1) Chloride Level 111 MMOL/L (98-107) H Carbon Dioxide Level 21 MMOL/L (21-32) Anion Gap 10 mmol/L (5-15) Blood Urea Nitrogen 6 mg/dL (7-18) L Creatinine 0.7 MG/DL (0.55-1.30) Estimat Glomerular Filtration Rate mL/min (>60) Glucose Level 115 MG/DL (74-106) H Calcium Level 8.4 MG/DL (8.5-10.1) L Phosphorus Level 3.2 MG/DL (2.5-4.9) Magnesium Level 2.1 MG/DL (1.8-2.4) Height (Feet): 4 Height (Inches): 10.00 Weight (Pounds): 124 General Appearance: no apparent distress Cardiovascular: normal rate Respiratory/Chest: normal breath sounds, no respiratory distress Abdominal Exam: normal bowel sounds, non tender, soft Extremities: non-tender Objective Poor p.o. intake as reported by the RN Jessie Thomason-Dom CHECK SERVICES CLERK Oct 26, 2018 10:58
[2018-10-26 12:00] VITALS: BP 133/74
--- NOTE | 2018-10-26 15:08 | Diagnostic Imaging Report ---
Indications: Reason For Exam: DYSPHAGIA Technique: Patient ingested multiple substances under the supervision of speech pathology. Video fluoroscopic recording performed. Total fluoroscopy time 251 seconds. Total dose area product [id number] Total number of images-8 Comparison: none Findings: Supraglottic laryngeal penetration of thin liquid barium noted on the initial swallow. No lilia aspiration demonstrated. With nectar thick liquid barium, there is early and delayed pooling in the vallecula and piriform sinuses. Early pooling in the vallecula is noted with honey thick liquid and barium puree barium. No aspiration or penetration. Impression: Positive for penetration of thin liquid barium Other oromotor dysfunction as noted Please refer to speech pathology report for more detailed analysis
[2018-10-26 16:00] VITALS: BP 140/85
[2018-10-26] MEDS: Dronabinol 2.5mg Cap ORAL SCH (16:30)
--- NOTE | 2018-10-26 17:03 | General Progress Note ---
Assessment/Plan Problem List: (1) Altered mental status ICD Codes: R41.82 - Altered mental status, unspecified SNOMED: 832088417 (2) UTI (urinary tract infection) ICD Codes: N39.0 - Urinary tract infection, site not specified SNOMED: 93317974 (3) Encephalopathy ICD Codes: G93.40 - Encephalopathy, unspecified SNOMED: 33886390 Status: progressing Assessment/Plan no lp per id afebrile sepsis improving diet per gi encphalopathy due to sepsis Subjective ROS Limited/Unobtainable: Yes Allergies: Coded Allergies: LIANG INHIBITORS (Verified Allergy, Unknown, 11/14/16) Subjective still lethargic and confused Objective Last 24 Hour Vital Signs Date Time Temp Pulse Resp B/P (MAP) Pulse Ox O2 Delivery O2 Flow Rate FiO2 10/26/18 16:00 98.9 100 18 140/85 (103) 98 10/26/18 12:00 98.1 100 18 133/74 (93) 97 10/26/18 12:00 100 10/26/18 11:58 133/74 10/26/18 09:00 Room Air Room Air 10/26/18 08:00 97.7 69 18 142/76 (98) 96 10/26/18 08:00 53 10/26/18 06:30 157/66 10/26/18 04:00 53 10/26/18 04:00 97.9 63 17 157/66 (96) 97 10/26/18 00:00 61 10/26/18 00:00 97.7 61 18 118/68 (85) 96 10/25/18 22:41 Room Air Room Air 10/25/18 20:00 97.5 59 16 115/72 (86) 96 10/25/18 20:00 64 10/25/18 17:23 159/68 Intake and Output 10/25/18 10/26/18 19:00 07:00 Intake Total 240 ml Output Total 1600 ml Balance -1360 ml Intake Oral 240 ml Output Urine Total 1600 ml # Voids 3 Laboratory Tests 10/26/18 06:51: White Blood Count 5.1, Red Blood Count 4.67, Hemoglobin 13.7, Hematocrit 40.1, Mean Corpuscular Volume 86, Mean Corpuscular Hemoglobin 29.3, Mean Corpuscular Hemoglobin Concent 34.1, Red Cell Distribution Width 13.0, Platelet Count 221, Mean Platelet Volume 5.3L, Neutrophils (%) (Auto) 55.3, Lymphocytes (%) (Auto) 31.0, Monocytes (%) (Auto) 10.6H, Eosinophils (%) (Auto) 2.2, Basophils (%) ( Auto) 1.0, Sodium Level 142, Potassium Level 3.6, Chloride Level 111H, Carbon Dioxide Level 21, Anion Gap 10, Blood Urea Nitrogen 6L, Creatinine 0.7, Estimat Glomerular Filtration Rate , Glucose Level 115H, Calcium Level 8.4L, Phosphorus Level 3.2, Magnesium Level 2.1 Height (Feet): 4 Height (Inches): 10.00 Weight (Pounds): 124 Cardiovascular: normal rate Respiratory/Chest: lungs clear Abdomen: soft Carlos Green MD Oct 26, 2018 17:03
--- NOTE | 2018-10-26 17:14 | Nephrology Progress Note ---
Assessment/Plan Problem List: (1) Epileptic seizure, generalized (2) UTI (urinary tract infection) (3) Encephalopathy Assessment Acute Encephalopathy UTI Sepsis, leukocytosis Sz Plan RN Reports hard po intake ! will change anti Sz meds to IV ? PEG ? other meds po DC rodrigues Rodrigues IV fluids Correct lytes antibiotics, Zosyn start po per ST Gastric support, pepcid anti Sz meds monitor neuro status ? DC planning DC Monitor Subjective ROS Limited/Unobtainable: No Constitutional: Reports: malaise, weakness Objective Objective Last 24 Hour Vital Signs Date Time Temp Pulse Resp B/P (MAP) Pulse Ox O2 Delivery O2 Flow Rate FiO2 10/26/18 16:00 98.9 100 18 140/85 (103) 98 10/26/18 12:00 98.1 100 18 133/74 (93) 97 10/26/18 12:00 100 10/26/18 11:58 133/74 10/26/18 09:00 Room Air Room Air 10/26/18 08:00 97.7 69 18 142/76 (98) 96 10/26/18 08:00 53 10/26/18 06:30 157/66 10/26/18 04:00 53 10/26/18 04:00 97.9 63 17 157/66 (96) 97 10/26/18 00:00 61 10/26/18 00:00 97.7 61 18 118/68 (85) 96 10/25/18 22:41 Room Air Room Air 10/25/18 20:00 97.5 59 16 115/72 (86) 96 10/25/18 20:00 64 10/25/18 17:23 159/68 Intake and Output 10/25/18 10/26/18 19:00 07:00 Intake Total 240 ml Output Total 1600 ml Balance -1360 ml Intake Oral 240 ml Output Urine Total 1600 ml # Voids 3 Laboratory Tests 10/26/18 06:51: White Blood Count 5.1, Red Blood Count 4.67, Hemoglobin 13.7, Hematocrit 40.1, Mean Corpuscular Volume 86, Mean Corpuscular Hemoglobin 29.3, Mean Corpuscular Hemoglobin Concent 34.1, Red Cell Distribution Width 13.0, Platelet Count 221, Mean Platelet Volume 5.3L, Neutrophils (%) (Auto) 55.3, Lymphocytes (%) (Auto) 31.0, Monocytes (%) (Auto) 10.6H, Eosinophils (%) (Auto) 2.2, Basophils (%) ( Auto) 1.0, Sodium Level 142, Potassium Level 3.6, Chloride Level 111H, Carbon Dioxide Level 21, Anion Gap 10, Blood Urea Nitrogen 6L, Creatinine 0.7, Estimat Glomerular Filtration Rate , Glucose Level 115H, Calcium Level 8.4L, Phosphorus Level 3.2, Magnesium Level 2.1 Height (Feet): 4 Height (Inches): 10.00 Weight (Pounds): 124 General Appearance: no apparent distress Cardiovascular: tachycardia Respiratory/Chest: decreased breath sounds Abdomen: soft Objective PE NO CHANGE Ashok Ann MD Oct 26, 2018 17:14
--- NOTE | 2018-10-26 19:09 | NUR ---
HAND-OFF: Report given to Giovanny RN. Patient is in stable condition.
[2018-10-26 20:00] VITALS: BP 134/65
--- NOTE | 2018-10-26 20:08 | NUR ---
NURSE NOTES: Report received from DE Mercer. Pt is lying comfortably in semi fowlers with no signs of distress. Pt is A+Ox1 showing no signs of pain/ SOB. IV site is patent, intact, and running fluids at prescribed rate. Respirations are even and unlabored on room air. Bed is at lowest position, brakes engaged, siderails x2, bed alarm on, and call light within reach. Pt is in stable condition at this time; will continue to monitor.
--- NOTE | 2018-10-26 21:21 | General Progress Note ---
Assessment/Plan Assessment/Plan Assessment and Recs: # Erythrocytosis - multiple etiologies, requires higher oxygen demand --> jak2 not required at this time --> give ivf to see if patient potentially dehydrated --> us of the abd can be withheld at this time --> no smoking in future --> currently has improved most likely related to fluid redistribution --> cbc for 10/25 # Hyperproteinemia, elevated protein albumin ratio --> spep is wnl, no mspikes noted on bands --> no sig evidence of kajal, anemia, bony lesions, unlikely myeloma # Altered mental status --> per neuro management --> may need rehab in future # Epileptic seizure, generalized --> as per neuro Greatly appreciate consultation! Subjective Constitutional: Denies: no symptoms, chills, diaphoresis, fever, malaise, weakness, other HEENT: Denies: no symptoms, eye pain, blurred vision, tearing, double vision, ear pain, ear discharge, nose pain, nose congestion, throat pain, throat swelling, mouth pain, mouth swelling, other Cardiovascular: Denies: no symptoms, chest pain, edema, irregular heart rate, lightheadedness, palpitations, syncope, other Respiratory: Denies: no symptoms, cough, orthopnea, shortness of breath, SOB with excertion, SOB at rest, sputum, stridor, wheezing, other Gastrointestinal/Abdominal: Denies: no symptoms, abdomen distended, abdominal pain, black stools, tarry stools, blood in stool, constipated, diarrhea, difficulty swallowing, nausea, poor appetite, poor fluid intake, rectal bleeding , vomiting, other Genitourinary: Denies: no symptoms, burning, discharge, frequency, flank pain, hematuria, incontinence, pain, urgency, other Neurologic/Psychiatric: Denies: no symptoms, anxiety, depressed, emotional problems, headache, numbness, paresthesia, pre-existing deficit, seizure, tingling, tremors, weakness, other Endocrine: Denies: no symptoms, excessive sweating, flushing, intolerance to cold, intolerance to heat, increased hunger, increased thirst, increased urine, unexplained weight gain, unexplained weight loss, other Hematologic/Lymphatic: Denies: no symptoms, anemia, easy bleeding, easy bruising, other Allergies: Coded Allergies: LIANG INHIBITORS (Verified Allergy, Unknown, 11/14/16) Subjective 10/20: seen by bedside, awake, comfortable, no acute events 10/21: swallow eval ordered, speech to eval, remains somewhat lethargic 10/22: awake, comfortable, remains lethargic and confused. 10/24: no major events, skin tears on chest noted, where tegaderm was 10/25: seen by bedside, still lethargic and confused 10/26: Pt is seen by bedside, remains lethargic and confused, Family doesn't want GT placement, Objective Last 24 Hour Vital Signs Date Time Temp Pulse Resp B/P (MAP) Pulse Ox O2 Delivery O2 Flow Rate FiO2 10/26/18 20:00 98.2 87 20 134/65 (88) 97 10/26/18 18:15 140/85 10/26/18 16:00 92 10/26/18 16:00 98.9 100 18 140/85 (103) 98 10/26/18 12:00 98.1 100 18 133/74 (93) 97 10/26/18 12:00 100 10/26/18 11:58 133/74 10/26/18 09:00 Room Air Room Air 10/26/18 08:00 97.7 69 18 142/76 (98) 96 10/26/18 08:00 53 10/26/18 06:30 157/66 10/26/18 04:00 53 10/26/18 04:00 97.9 63 17 157/66 (96) 97 10/26/18 00:00 61 10/26/18 00:00 97.7 61 18 118/68 (85) 96 10/25/18 22:41 Room Air Room Air Intake and Output 10/25/18 10/26/18 18:59 06:59 Intake Total 50 ml 240 ml Output Total 1600 ml Balance 50 ml -1360 ml Intake Oral 240 ml IV Total 50 ml Output Urine Total 1600 ml # Voids 3 Laboratory Tests 10/26/18 06:51: White Blood Count 5.1, Red Blood Count 4.67, Hemoglobin 13.7, Hematocrit 40.1, Mean Corpuscular Volume 86, Mean Corpuscular Hemoglobin 29.3, Mean Corpuscular Hemoglobin Concent 34.1, Red Cell Distribution Width 13.0, Platelet Count 221, Mean Platelet Volume 5.3L, Neutrophils (%) (Auto) 55.3, Lymphocytes (%) (Auto) 31.0, Monocytes (%) (Auto) 10.6H, Eosinophils (%) (Auto) 2.2, Basophils (%) ( Auto) 1.0, Sodium Level 142, Potassium Level 3.6, Chloride Level 111H, Carbon Dioxide Level 21, Anion Gap 10, Blood Urea Nitrogen 6L, Creatinine 0.7, Estimat Glomerular Filtration Rate , Glucose Level 115H, Calcium Level 8.4L, Phosphorus Level 3.2, Magnesium Level 2.1 Height (Feet): 4 Height (Inches): 10.00 Weight (Pounds): 124 Objective General Appearance: alert, thin, Chronically Ill Head: atraumatic ENT: normal ENT inspection, hearing grossly normal, normal voice Neck: no bony tend Respiratory: normal inspection, no cwr Gastrointestinal: soft, no guarding, no hernia Genitourinary: no CVA tenderness Musculoskeletal: normal inspection, back normal, normal range of motion Neurologic: motor weakness Psychiatric: depressed affect Skin: normal inspection Charles Gr MD Oct 26, 2018 21:21
[2018-10-27] VITALS: BP 148/55
[2018-10-27] MEDS: D5 1/2NS 1,000 ML IV SCH ×2 (01:44→13:50)
[2018-10-27 04:00] VITALS: BP 144/65
[2018-10-27] MEDS: Nitroglycerin 2% oint pkt TOPIC SCH ×3 (05:46→18:23)
--- NOTE | 2018-10-27 07:13 | NUR ---
HAND-OFF: Report given to DE Mercer. Pt is in stable condition; plan of care endorsed.
--- NOTE | 2018-10-27 07:38 | NUR ---
NURSE NOTES: Received patient in bed sleeping from DE Ann, no s/s of acute distress noted. Patient opens eyes spontaneously, no sign of respiratory distress or sob noted. Bed is in lowest position with bedside rails up x3, on fall, seizure and aspiration precaution. IV site is intact and patent, running D5 1/2NS @50cc/hr. Call light is within reach. Will continue with the plan of care.
[2018-10-27 08:00] VITALS: BP 139/72
--- NOTE | 2018-10-27 09:07 | NUR ---
ST NOTE: SWALLOW STATUS AND D/C SUMMARY: SPOKE TO PT'S FAMILY YESTERDAY RE:PT'S CONDITIONS AND VIDEOSWALLOW STUDY RESULTS AND RECOMMENDATIONS. PER PT'S DAUGHTER, DID NOT WANT ANY ARTIFICIAL FEEDING, INCLUDING FEEDING TUBES. EXPLAINED AND EDUCATED PT'S DAUGHTER RE: SAFE SWALLOW TECHNIQUES. PER RD'S RECOMMENDATIONS, RECOMMENDED HIGH CALORIE SUPPLEMENT, TID. D/C SUMMARY: PT PARTIALLY MET PO INTAKE GOALS. NURSING STAFF MET ASPIRATION PRECAUTIONS GOALS. FOR QUALITY OF LIFE, CONTINUE LIQUIFIED PUREED, LIKE NECTAR THICK SOUP CONSISTENCY WITH NECTAR THICK LIQUID WITH STRICT ASPIRATION PRECAUTIONS WITH 1TO1 FEEDING. NO FURTHER SKILLED ST IS REQUIRED AT THIS TIME. D/C FROM SKILLED ST SERVICE. RN, DAVID, NOTIFIED.
[2018-10-27 09:14] LABS: BASOPHILS % (AUTO) 1.4 % (0.0-2.0); EOSINOPHILS % (AUTO) 2.3 % (0.0-3.0); HEMATOCRIT 39.6 % (37.0-47.0); HEMOGLOBIN 13.3 G/DL (12.0-16.0); MEAN CORPUSCULAR VOLUME 87 FL (80-99); MONOCYTES % (AUTO) 8.7 % (1.0-10.0); NEUTROPHILS % (AUTO) 57.7 % (45.0-75.0); PLATELET COUNT 234 K/UL (150-450); RED BLOOD COUNT 4.56 M/UL (4.20-5.40); RED CELL DISTRIBUTION WIDTH 13.7 % (11.6-14.8); WHITE BLOOD COUNT 5.4 K/UL (4.8-10.8)
[2018-10-27] MEDS: levETIRAcetam 500mg/NS100ml 100 ML IVPB SCH ×2 (09:34→21:15)
[2018-10-27] MEDS: Heparin 5000 units/ml inj SUBQ SCH ×2 (09:35→21:25)
[2018-10-27 09:37] LABS: ANION GAP 10 mmol/L (5-15); BLOOD UREA NITROGEN 6 mg/dL (7-18); CALCIUM 8.4 MG/DL (8.5-10.1); CARBON DIOXIDE 21 MMOL/L (21-32); CHLORIDE 114 MMOL/L (98-107); CREATININE 0.7 MG/DL (0.55-1.30); POTASSIUM 3.6 MMOL/L (3.5-5.1); SODIUM 145 MMOL/L (136-145)
--- NOTE | 2018-10-27 10:34 | GI Progress Note ---
Assessment/Plan Problems: (1) Failure to thrive SNOMED: 32818785 (2) Dehydration ICD Codes: E86.0 - Dehydration SNOMED: 59178167 (3) Severe malnutrition ICD Codes: E43 - Unspecified severe protein-calorie malnutrition SNOMED: 44292583 (4) Encephalopathy ICD Codes: G93.40 - Encephalopathy, unspecified SNOMED: 20120721 (5) Altered mental status ICD Codes: R41.82 - Altered mental status, unspecified SNOMED: 561822010 Status: unchanged Status Narrative Discussed with Dr. Marcelino Assessment/Plan Family refusing G-tube or NG tube feeding We will add calorie count Marinol for appetite stimulant One-to-one feeder Supportive care Zofran as needed The patient was seen and examined at bedside and all new and available data was reviewed in the patients chart. I agree with the above findings, impression and plan. (Patient seen earlier today. Signature stamp does not reflect patient encounter time.). - René Marcelino MD Subjective Subjective Limited Objective Last 24 Hour Vital Signs Date Time Temp Pulse Resp B/P (MAP) Pulse Ox O2 Delivery O2 Flow Rate FiO2 10/27/18 09:00 Room Air Room Air 10/27/18 08:00 98.5 53 18 139/72 (94) 99 10/27/18 08:00 53 10/27/18 05:46 144/65 10/27/18 04:00 96.0 72 20 144/65 (91) 97 10/27/18 04:00 57 10/27/18 00:00 61 10/27/18 00:00 97.5 64 20 148/55 (86) 100 10/26/18 21:00 Room Air Room Air 10/26/18 20:00 95 10/26/18 20:00 98.2 87 20 134/65 (88) 97 10/26/18 18:15 140/85 10/26/18 16:00 92 10/26/18 16:00 98.9 100 18 140/85 (103) 98 10/26/18 12:00 98.1 100 18 133/74 (93) 97 10/26/18 12:00 100 10/26/18 11:58 133/74 Intake and Output 10/26/18 10/27/18 19:00 07:00 Intake Total 360 ml Output Total 1400 ml Balance -1040 ml Intake Oral 360 ml Output Urine Total 1400 ml # Voids 3 # Bowel Movements 3 1 Laboratory Tests Test 10/27/18 07:54 White Blood Count 5.4 K/UL (4.8-10.8) Red Blood Count 4.56 M/UL (4.20-5.40) Hemoglobin 13.3 G/DL (12.0-16.0) Hematocrit 39.6 % (37.0-47.0) Mean Corpuscular Volume 87 FL (80-99) Mean Corpuscular Hemoglobin 29.1 PG (27.0-31.0) Mean Corpuscular Hemoglobin Concent 33.5 G/DL (32.0-36.0) Red Cell Distribution Width 13.7 % (11.6-14.8) Platelet Count 234 K/UL (150-450) Mean Platelet Volume 5.2 FL (6.5-10.1) L Neutrophils (%) (Auto) 57.7 % (45.0-75.0) Lymphocytes (%) (Auto) 30.0 % (20.0-45.0) Monocytes (%) (Auto) 8.7 % (1.0-10.0) Eosinophils (%) (Auto) 2.3 % (0.0-3.0) Basophils (%) (Auto) 1.4 % (0.0-2.0) Sodium Level 145 MMOL/L (136-145) Potassium Level 3.6 MMOL/L (3.5-5.1) Chloride Level 114 MMOL/L (98-107) H Carbon Dioxide Level 21 MMOL/L (21-32) Anion Gap 10 mmol/L (5-15) Blood Urea Nitrogen 6 mg/dL (7-18) L Creatinine 0.7 MG/DL (0.55-1.30) Estimat Glomerular Filtration Rate mL/min (>60) Glucose Level 91 MG/DL (74-106) Calcium Level 8.4 MG/DL (8.5-10.1) L Height (Feet): 4 Height (Inches): 10.00 Weight (Pounds): 142 General Appearance: alert Cardiovascular: normal rate Respiratory/Chest: normal breath sounds, no respiratory distress Abdominal Exam: soft Objective Poor p.o. intake as reported by the RN ThomasonHugh sharma NP Oct 27, 2018 10:34
--- NOTE | 2018-10-27 11:08 | NUR ---
CASE MANAGEMENT:REVIEW 10/27/18 SI: ACUTE ENCEPHALOPATHY. SEPSIS/UTI SEIZURES 98.5 53 18 139/72 99% ON RA BUN-6 IS: IVF @ 50/HR IV KEPPRA Q12 PROTONIX PO QD NITRO 1" TID : TELEMETRY STATUS DCP: PATIENT IS FROM [facility]
--- NOTE | 2018-10-27 11:16 | Infectious Diseases Prog Note ---
Assessment/Plan Assessment/Plan A: 1. Strep group B UTI. 2. Encephalopathy.toxic-metabolic 3. Altered mental status. 4. Dementia. 5. Major depressive disorder. 6. Hypertension. RECOMMENDATION: Observe off antibiotic Family doesn't want GT placement Subjective ROS Limited/Unobtainable: Yes Constitutional: Reports: no symptoms Allergies: Coded Allergies: LIANG INHIBITORS (Verified Allergy, Unknown, 11/14/16) Objective Vital Signs Last 24 Hour Vital Signs Date Time Temp Pulse Resp B/P (MAP) Pulse Ox O2 Delivery O2 Flow Rate FiO2 10/27/18 09:00 Room Air Room Air 10/27/18 08:00 98.5 53 18 139/72 (94) 99 10/27/18 08:00 53 10/27/18 05:46 144/65 10/27/18 04:00 96.0 72 20 144/65 (91) 97 10/27/18 04:00 57 10/27/18 00:00 61 10/27/18 00:00 97.5 64 20 148/55 (86) 100 10/26/18 21:00 Room Air Room Air 10/26/18 20:00 95 10/26/18 20:00 98.2 87 20 134/65 (88) 97 10/26/18 18:15 140/85 10/26/18 16:00 92 10/26/18 16:00 98.9 100 18 140/85 (103) 98 10/26/18 12:00 98.1 100 18 133/74 (93) 97 10/26/18 12:00 100 10/26/18 11:58 133/74 Height (Feet): 4 Height (Inches): 10.00 Weight (Pounds): 142 General Appearance: no acute distress HEENT: mucous membranes moist Respiratory/Chest: lungs clear Cardiovascular: normal rate Abdomen: soft, non tender Extremities: no edema Neurologic/Psychiatric: other - opens eyes Laboratory Tests Test 10/27/18 07:54 White Blood Count 5.4 K/UL (4.8-10.8) Red Blood Count 4.56 M/UL (4.20-5.40) Hemoglobin 13.3 G/DL (12.0-16.0) Hematocrit 39.6 % (37.0-47.0) Mean Corpuscular Volume 87 FL (80-99) Mean Corpuscular Hemoglobin 29.1 PG (27.0-31.0) Mean Corpuscular Hemoglobin Concent 33.5 G/DL (32.0-36.0) Red Cell Distribution Width 13.7 % (11.6-14.8) Platelet Count 234 K/UL (150-450) Mean Platelet Volume 5.2 FL (6.5-10.1) L Neutrophils (%) (Auto) 57.7 % (45.0-75.0) Lymphocytes (%) (Auto) 30.0 % (20.0-45.0) Monocytes (%) (Auto) 8.7 % (1.0-10.0) Eosinophils (%) (Auto) 2.3 % (0.0-3.0) Basophils (%) (Auto) 1.4 % (0.0-2.0) Sodium Level 145 MMOL/L (136-145) Potassium Level 3.6 MMOL/L (3.5-5.1) Chloride Level 114 MMOL/L (98-107) H Carbon Dioxide Level 21 MMOL/L (21-32) Anion Gap 10 mmol/L (5-15) Blood Urea Nitrogen 6 mg/dL (7-18) L Creatinine 0.7 MG/DL (0.55-1.30) Estimat Glomerular Filtration Rate mL/min (>60) Glucose Level 91 MG/DL (74-106) Calcium Level 8.4 MG/DL (8.5-10.1) L Current Medications Medications (Trade) Dose Ordered Sig/Román Route PRN Reason Start Time Stop Time Status Last Admin Dose Admin Acetaminophen (Tylenol) 500 mg Q4H PRN ORAL Mild Pain/Temp > 100.5 10/18/18 17:15 11/17/18 17:14 Acetaminophen (Tylenol) 650 mg Q4H PRN RECTAL Mild Pain/Temp > 100.5 10/19/18 01:00 11/18/18 00:59 10/23/18 06:04 Dextrose/Sodium Chloride 1,000 ml @ 50 mls/hr Q20H IV 10/24/18 14:00 11/23/18 13:59 10/27/18 01:44 Heparin Sodium (Porcine) (Heparin 5000 units/ml) 5,000 units EVERY 12 HOURS SUBQ 10/18/18 21:00 11/17/18 20:59 10/27/18 09:35 Hydralazine HCl (Apresoline) 10 mg Q4H PRN IV bp over 160 syst 10/19/18 09:15 11/18/18 09:14 10/23/18 04:30 Levetiracetam 100 ml @ 400 mls/hr Q12HR IVPB 10/23/18 12:00 11/22/18 11:59 10/27/18 09:34 Nitroglycerin (Nitro-Bid) 1 inch TID@0600,1200,1800 TOPIC 10/19/18 12:00 11/18/18 11:59 10/27/18 05:46 Pantoprazole (Protonix) 40 mg DAILY ORAL 10/22/18 09:00 11/21/18 08:59 10/27/18 09:33 Landon Pagan MD Oct 27, 2018 11:15
--- NOTE | 2018-10-27 12:05 | Nephrology Progress Note ---
Assessment/Plan Problem List: (1) Epileptic seizure, generalized (2) UTI (urinary tract infection) (3) Encephalopathy Assessment Acute Encephalopathy UTI Sepsis, leukocytosis Sz Plan RN Reports hard po intake ! will change anti Sz meds to IV ? PEG ? family refuse DNR to med surg DC Monitor Subjective ROS Limited/Unobtainable: No Constitutional: Reports: malaise Objective Objective Last 24 Hour Vital Signs Date Time Temp Pulse Resp B/P (MAP) Pulse Ox O2 Delivery O2 Flow Rate FiO2 10/27/18 09:00 Room Air Room Air 10/27/18 08:00 98.5 53 18 139/72 (94) 99 10/27/18 08:00 53 10/27/18 05:46 144/65 10/27/18 04:00 96.0 72 20 144/65 (91) 97 10/27/18 04:00 57 10/27/18 00:00 61 10/27/18 00:00 97.5 64 20 148/55 (86) 100 10/26/18 21:00 Room Air Room Air 10/26/18 20:00 95 10/26/18 20:00 98.2 87 20 134/65 (88) 97 10/26/18 18:15 140/85 10/26/18 16:00 92 10/26/18 16:00 98.9 100 18 140/85 (103) 98 Intake and Output 10/26/18 10/27/18 19:00 07:00 Intake Total 360 ml Output Total 1400 ml Balance -1040 ml Intake Oral 360 ml Output Urine Total 1400 ml # Voids 3 # Bowel Movements 3 1 Laboratory Tests 10/27/18 07:54: White Blood Count 5.4, Red Blood Count 4.56, Hemoglobin 13.3, Hematocrit 39.6, Mean Corpuscular Volume 87, Mean Corpuscular Hemoglobin 29.1, Mean Corpuscular Hemoglobin Concent 33.5, Red Cell Distribution Width 13.7, Platelet Count 234, Mean Platelet Volume 5.2L, Neutrophils (%) (Auto) 57.7, Lymphocytes (%) (Auto) 30.0, Monocytes (%) (Auto) 8.7, Eosinophils (%) (Auto) 2.3, Basophils (%) (Auto ) 1.4, Sodium Level 145, Potassium Level 3.6, Chloride Level 114H, Carbon Dioxide Level 21, Anion Gap 10, Blood Urea Nitrogen 6L, Creatinine 0.7, Estimat Glomerular Filtration Rate , Glucose Level 91, Calcium Level 8.4L Height (Feet): 4 Height (Inches): 10.00 Weight (Pounds): 142 General Appearance: no apparent distress Objective PE NO CHANGE Ashok Ann MD Oct 27, 2018 12:05
[2018-10-27 13:00] VITALS: BP 166/75
[2018-10-27] MEDS ORDERED: Acetaminophen 500mg (ES) tab ORAL PRN (13:17)
[2018-10-27] MEDS ORDERED: Acetaminophen 650 MG SUPP RECTAL PRN ×2 (13:17→13:30)
--- NOTE | 2018-10-27 13:30 | NUR ---
*-* DISCHARGE PLANNING *-* PATIENT HAS BEEN REFERRED BACK TO: [facility] P:[phone] F:[phone] F:[phone]
--- NOTE | 2018-10-27 14:01 | NUR ---
NURSE NOTES: Patient arraived the unite [id number] by hospital bed accompanied by transfering nurseSylvie and nursing home director; Patient non verbal and opens her eyes spontaneously; on room air, no sign of distress and shotness of breath; no sign of chest pain; elidane on [facility], envelope posted at the bed side, nursing home director Patrick is aware and patient is a feeder; patient on aspiration, fall and seizure percussion; side rails padded, bed at lowest position, side rails x2 up, bed elevated 30 degree; pt on p200 mattress. Wound picture taken upon arraival to the unite and uploaded on file, wound care provided. Will keep monitoring.
--- NOTE | 2018-10-27 14:03 | NUR ---
NURSE NOTES: Transferred patient to med/surg 4E Rm 411-1 via hospital bed. Patient and report given to DE Stoner. IV intact and patent at the time of transfer. pvc monitor removed. All plan of care endorsed to Georgiana KC. All transfer orders completed. Patient is in stable condition.
--- NOTE | 2018-10-27 14:34 | NUR ---
NURSE NOTES: Remy's blood pressure on arraival to the unit 166/75. I communicated Dr Green to get PRN BP med. Waiting for order.
--- NOTE | 2018-10-27 14:35 | NUR ---
NURSE NOTES: Patient had Nitroglycerin patch on the right upper chest and left upper chest has scratches upon arrival to the unit.
--- NOTE | 2018-10-27 15:38 | NUR ---
RD ASSESSMENT & RECOMMENDATIONS SEE CARE ACTIVITY FOR COMPLETE ASSESSMENT DAILY ESTIMATED NEEDS: Needs based on Cardiac, 56kg 25-30 kcals/kg 0571-3280 total kcals 1-1.2 g protein/kg 56-67 g total protein 25-30 mL/kg 1509-6058 total fluid mLs NUTRITION DIAGNOSIS: * Chewing / swallowing difficulty r/t decreased alertness, h/o seizure activity as evidenced by WORK AND FAMILY LIFE CONSULTANT recs liquify soup like puree/ NTL, w/ variable PO intake * Increased kcal/prot intake needs R/T wound healing as evidenced by pt noted w/ new sacral wound per photo, pending eval. GORDO COUNT X 48 HRS COMPLETED- INCOMPLETE DATA 10/25 Breakfast: data not available (per EMERGENCY MEDICAL TECHNICIAN BASIC, pt refused breakfast) Lunch: data not available (per EMERGENCY MEDICAL TECHNICIAN BASIC, pt refused lunch) Dinner: data not available (per EMERGENCY MEDICAL TECHNICIAN BASIC, pt ate "better" with family @ bedside) 10/26 Breakfast: ~410kcal, 22g prot Ensure Enlive 8oz 100% Cream of wheat 100% Eggs 0% [place] 0% Lunch: data not available Dinner:~260kcal, 9g prot Ensure Enlive 0% Spinach soup 100% Short ribs, liquify 100% Bread, liquify 100% 10/27 Breakfast: ~ 300kcal, 18g prot Ensure Enlive 50% Cream of wheat 0% Eggs, liquify 100% Bread, liquify 100% Lunch- Refused RESULT: Gordo count data is incomplete to assess accurate kcal/prot intake in the last 48 hrs. However, pt's PO intake appears to be variable and inadequate to meet nutritional needs. Pt w/ fair-good intake when awake and receptive to eating but pt w/ multiple episodes of refusing meals. Rec to continue Ensure 8oz TID w/ meals, consider resuming appetite stimulant (Marinol dc'ed at this time noted). CURRENT DIET:Regular liquify puree NTL PO DIET RECOMMENDATIONS: [place]/ regular diet (texture per WORK AND FAMILY LIFE CONSULTANT) ADDITIONAL RECOMMENDATIONS: 1) Obtain a calibrated bed scale wt d/t conflicting wts: Bed scale wt: 134# vs EMR wt: 124# 2) Ensure Enlive TID w/ meals 3) * Consult RD if non oral feeds are a part of POC * 4) Consider adding appetite stimulant 5) Wound healing: Add MVI x 1, Vit C 500mg QD, Oli 1pkt BID f/up w/ WC eval
--- NOTE | 2018-10-27 15:41 | NUR ---
NURSE NOTES:WOUND CARE NOTES: PT presents with partial thickness wound sacrum with non-blanchable dark borders without induration . Pt did not exhibit evidence of pain or discomfort with area around sacrum minimally palpated.(L)1.5cm x (W)1.3cm. .Total skin assessment completed and no other areas of skin concerns noted. Recommendations: Cleanse Sacrum with Saline .Apply Triad Paste. Cover with Optifoam drsg. Change every 3 days and prn. Apply Cavilon Skin Barrier to Both heels .Cover each heel with Optifoam drsg. Change every 7 days and PRN. APM/BECKI mattress. Reposition at least every 2hours or as tolerated. Off-load heels with pillow.
--- NOTE | 2018-10-27 15:53 | General Progress Note ---
Assessment/Plan Problem List: (1) Altered mental status ICD Codes: R41.82 - Altered mental status, unspecified SNOMED: 640964926 (2) UTI (urinary tract infection) ICD Codes: N39.0 - Urinary tract infection, site not specified SNOMED: 53990971 (3) Encephalopathy ICD Codes: G93.40 - Encephalopathy, unspecified SNOMED: 57674957 Status: progressing Assessment/Plan afebrile no acute events sepsis encphalopathy due to sepsis is improving Subjective ROS Limited/Unobtainable: Yes Allergies: Coded Allergies: LIANG INHIBITORS (Verified Allergy, Unknown, 11/14/16) Subjective still lethargic and confused Objective Last 24 Hour Vital Signs Date Time Temp Pulse Resp B/P (MAP) Pulse Ox O2 Delivery O2 Flow Rate FiO2 10/27/18 13:00 97.9 79 19 166/75 (105) 99 10/27/18 12:30 139/65 10/27/18 09:00 Room Air Room Air 10/27/18 08:00 98.5 53 18 139/72 (94) 99 10/27/18 08:00 53 10/27/18 05:46 144/65 10/27/18 04:00 96.0 72 20 144/65 (91) 97 10/27/18 04:00 57 10/27/18 00:00 61 10/27/18 00:00 97.5 64 20 148/55 (86) 100 10/26/18 21:00 Room Air Room Air 10/26/18 20:00 95 10/26/18 20:00 98.2 87 20 134/65 (88) 97 10/26/18 18:15 140/85 10/26/18 16:00 92 10/26/18 16:00 98.9 100 18 140/85 (103) 98 Intake and Output 10/26/18 10/27/18 19:00 07:00 Intake Total 360 ml Output Total 1400 ml Balance -1040 ml Intake Oral 360 ml Output Urine Total 1400 ml # Voids 3 # Bowel Movements 3 1 Laboratory Tests 10/27/18 07:54: White Blood Count 5.4, Red Blood Count 4.56, Hemoglobin 13.3, Hematocrit 39.6, Mean Corpuscular Volume 87, Mean Corpuscular Hemoglobin 29.1, Mean Corpuscular Hemoglobin Concent 33.5, Red Cell Distribution Width 13.7, Platelet Count 234, Mean Platelet Volume 5.2L, Neutrophils (%) (Auto) 57.7, Lymphocytes (%) (Auto) 30.0, Monocytes (%) (Auto) 8.7, Eosinophils (%) (Auto) 2.3, Basophils (%) (Auto ) 1.4, Sodium Level 145, Potassium Level 3.6, Chloride Level 114H, Carbon Dioxide Level 21, Anion Gap 10, Blood Urea Nitrogen 6L, Creatinine 0.7, Estimat Glomerular Filtration Rate , Glucose Level 91, Calcium Level 8.4L Height (Feet): 4 Height (Inches): 10.00 Weight (Pounds): 142 General Appearance: confused Neck: supple Cardiovascular: regular rhythm Respiratory/Chest: lungs clear Abdomen: soft Carlos Green MD Oct 27, 2018 15:53
[2018-10-27 16:00] VITALS: BP 158/76
--- NOTE | 2018-10-27 16:19 | Cardiology Report ---
APPROVED REPORT EKG Measurement Heart [id number] MI 130P62 [id number] Normal sinus rhythm Nonspecific ST and T wave abnormality Abnormal ECG
--- NOTE | 2018-10-27 16:28 | NUR ---
NURSE NOTES: Dr Green inform me to communicate Dr Molina, I called Dr Molina office, waiting for order.
--- NOTE | 2018-10-27 19:45 | NUR ---
NURSE NOTES: Pt received lying supine in bed in no acute distress. On room air, sleeping restfully. Bed in lowest position and locked. Side rails x2. Pt received in no acute distress. resting in supine position. Bed was lowest position, wheels locked, side rails up x3. Seizure- siderails padded, fall and aspiration precautions in place- HOB elevated 40 degrees. Call light within reach. Pt advised to press call li Addendum: 10/27/18 at 2047 by Mary Collado RN NURSE NOTES: Pt received lying supine in bed in no acute distress. On room air, sleeping restfully. Bed in lowest position and locked. Side rails x2. Pt received in no acute distress. resting in supine position. Seizure precautions in place- siderails padded, fall and aspiration precautions in place- HOB elevated 30 degrees. Call light within reach. Pt advised to press call light if needs assistance. Family at the bedside. On P200 mattress.
--- NOTE | 2018-10-27 19:45 | NUR ---
HAND-OFF: Report given to ShayRN, DE Mahan.
--- NOTE | 2018-10-27 19:49 | NUR ---
CASE MANAGEMENT: REVIEW SI: AMS . ACUTE ENCEPHALOPATHY . SEIZURE T 98.5 HR 53 RR 18 BP 166/75 SAT 99% ROOM AIR CHLORIDE 114 IS: D5 1/2 NS w/KCl 20mEq IVF @50ML/HR KEPPRA IV Q12HR MED/SURG STATUS DCP: PATIENT IS FROM [facility]
[2018-10-27 20:00] VITALS: BP 144/60
--- NOTE | 2018-10-27 20:44 | General Progress Note ---
Assessment/Plan Assessment/Plan Assessment and Recs: # Erythrocytosis - multiple etiologies, requires higher oxygen demand --> jak2 not required at this time --> give ivf to see if patient potentially dehydrated --> us of the abd can be withheld at this time --> no smoking in future --> currently has improved most likely related to fluid redistribution --> cbc for 10/25 # Hyperproteinemia, elevated protein albumin ratio --> spep is wnl, no mspikes noted on bands --> no sig evidence of kajal, anemia, bony lesions, unlikely myeloma # Altered mental status --> per neuro management --> may need rehab in future # Epileptic seizure, generalized --> as per neuro Greatly appreciate consultation! Subjective Allergies: Coded Allergies: LIANG INHIBITORS (Verified Allergy, Unknown, 11/14/16) Subjective 10/20: seen by bedside, awake, comfortable, no acute events 10/21: swallow eval ordered, speech to eval, remains somewhat lethargic 10/22: awake, comfortable, remains lethargic and confused. 10/24: no major events, skin tears on chest noted, where tegaderm was 10/25: seen by bedside, still lethargic and confused 10/26: Pt is seen by bedside, remains lethargic and confused, Family doesn't want GT placement, 10/27: seen by bedside, awake, comfortable, still lethargic and confused Objective Last 24 Hour Vital Signs Date Time Temp Pulse Resp B/P (MAP) Pulse Ox O2 Delivery O2 Flow Rate FiO2 10/27/18 20:00 99.0 92 18 144/60 (88) 97 10/27/18 18:23 158/76 10/27/18 16:00 98.0 70 18 158/76 (103) 97 10/27/18 13:00 97.9 79 19 166/75 (105) 99 10/27/18 12:30 139/65 10/27/18 09:00 Room Air Room Air 10/27/18 08:00 98.5 53 18 139/72 (94) 99 10/27/18 08:00 53 10/27/18 05:46 144/65 10/27/18 04:00 96.0 72 20 144/65 (91) 97 10/27/18 04:00 57 10/27/18 00:00 61 10/27/18 00:00 97.5 64 20 148/55 (86) 100 10/26/18 21:00 Room Air Room Air Intake and Output 10/26/18 10/27/18 19:00 07:00 Intake Total 360 ml Output Total 1400 ml Balance -1040 ml Intake Oral 360 ml Output Urine Total 1400 ml # Voids 3 # Bowel Movements 3 1 Laboratory Tests 10/27/18 07:54: White Blood Count 5.4, Red Blood Count 4.56, Hemoglobin 13.3, Hematocrit 39.6, Mean Corpuscular Volume 87, Mean Corpuscular Hemoglobin 29.1, Mean Corpuscular Hemoglobin Concent 33.5, Red Cell Distribution Width 13.7, Platelet Count 234, Mean Platelet Volume 5.2L, Neutrophils (%) (Auto) 57.7, Lymphocytes (%) (Auto) 30.0, Monocytes (%) (Auto) 8.7, Eosinophils (%) (Auto) 2.3, Basophils (%) (Auto ) 1.4, Sodium Level 145, Potassium Level 3.6, Chloride Level 114H, Carbon Dioxide Level 21, Anion Gap 10, Blood Urea Nitrogen 6L, Creatinine 0.7, Estimat Glomerular Filtration Rate , Glucose Level 91, Calcium Level 8.4L Height (Feet): 4 Height (Inches): 10.00 Weight (Pounds): 142 Objective General Appearance: alert, thin, Chronically Ill Head: atraumatic ENT: normal ENT inspection, hearing grossly normal, normal voice Neck: no bony tend Respiratory: normal inspection, no cwr Gastrointestinal: soft, no guarding, no hernia Genitourinary: no CVA tenderness Musculoskeletal: normal inspection, back normal, normal range of motion Neurologic: motor weakness Psychiatric: depressed affect Skin: normal inspection Charles Gr MD Oct 27, 2018 20:44
[2018-10-28] VITALS: BP 157/65
[2018-10-28 04:00] VITALS: BP 117/61
[2018-10-28] MEDS: Nitroglycerin 2% oint pkt TOPIC SCH ×3 (06:35→17:39)
--- NOTE | 2018-10-28 07:33 | NUR ---
HAND-OFF: Report given to DE Kohli.
--- NOTE | 2018-10-28 07:47 | NUR ---
NURSE NOTES: Patient alert x1, non verbal; on room air, no sign of shortness of breath and distress; no sign of chest pain; IV LFA running D51/2NS 50cc; dressing on sacral and both heels in place and dry and intact; patient on aspiration percussion, seizure percussion and side rails padded; patient is a feeder and Caprice, rehab nursing tech aware. Patient on P200 mattress. Bed at lowest position, breaks engaged, head of the bed elevated for aspiration percussion. Will keep monitoring.
[2018-10-28 08:00] VITALS: BP 150/63
[2018-10-28 08:01] LABS: EOSINOPHILS % (AUTO) 2.6 % (0.0-3.0); HEMATOCRIT 36.5 % (37.0-47.0); HEMOGLOBIN 12.4 G/DL (12.0-16.0); MEAN CORPUSCULAR VOLUME 86 FL (80-99); MONOCYTES % (AUTO) 7.9 % (1.0-10.0); NEUTROPHILS % (AUTO) 64.5 % (45.0-75.0); PLATELET COUNT 246 K/UL (150-450); RED BLOOD COUNT 4.24 M/UL (4.20-5.40); RED CELL DISTRIBUTION WIDTH 13.4 % (11.6-14.8)
[2018-10-28] MEDS: levETIRAcetam 500mg/NS100ml 100 ML IVPB SCH ×2 (08:18→20:55)
[2018-10-28] MEDS: Heparin 5000 units/ml inj SUBQ SCH ×2 (08:19→20:56)
[2018-10-28 08:59] LABS: ANION GAP 12 mmol/L (5-15); BLOOD UREA NITROGEN 7 mg/dL (7-18); CALCIUM 8.1 MG/DL (8.5-10.1); CARBON DIOXIDE 19 MMOL/L (21-32); CHLORIDE 113 MMOL/L (98-107); CREATININE 0.6 MG/DL (0.55-1.30); PHOSPHORUS 2.8 MG/DL (2.5-4.9); POTASSIUM 3.7 MMOL/L (3.5-5.1); SODIUM 144 MMOL/L (136-145)
[2018-10-28] MEDS: D5 1/2NS 1,000 ML IV SCH (09:45)
[2018-10-28 12:00] VITALS: BP 114/65
--- NOTE | 2018-10-28 12:13 | GI Progress Note ---
Assessment/Plan Problems: (1) Failure to thrive SNOMED: 42347714 (2) Dehydration ICD Codes: E86.0 - Dehydration SNOMED: 80898311 (3) Severe malnutrition ICD Codes: E43 - Unspecified severe protein-calorie malnutrition SNOMED: 60434697 (4) Encephalopathy ICD Codes: G93.40 - Encephalopathy, unspecified SNOMED: 01305468 (5) Altered mental status ICD Codes: R41.82 - Altered mental status, unspecified SNOMED: 778583196 Status: stable, unchanged Status Narrative Discussed with Dr. Marcelino. Assessment/Plan Family refusing G-tube or NG tube feeding follow up calorie count Marinol for appetite stimulant One-to-one feeder push PO Supportive care Zofran as needed The patient was seen and examined at bedside and all new and available data was reviewed in the patients chart. I agree with the above findings, impression and plan. (Patient seen earlier today. Signature stamp does not reflect patient encounter time.). - René Marcelino MD Subjective Subjective Limited Objective Last 24 Hour Vital Signs Date Time Temp Pulse Resp B/P (MAP) Pulse Ox O2 Delivery O2 Flow Rate FiO2 10/28/18 11:45 150/63 10/28/18 09:00 Room Air Room Air 10/28/18 08:00 97.0 69 18 150/63 (92) 100 10/28/18 06:35 117/61 10/28/18 04:00 97.5 66 18 117/61 (79) 100 10/28/18 00:00 98.9 78 18 157/65 (95) 98 10/27/18 21:00 Room Air Room Air 10/27/18 20:00 99.0 92 18 144/60 (88) 97 10/27/18 18:23 158/76 10/27/18 16:00 98.0 70 18 158/76 (103) 97 10/27/18 13:00 97.9 79 19 166/75 (105) 99 10/27/18 12:30 139/65 Intake and Output 10/27/18 10/28/18 19:00 07:00 Intake Total 1710 ml 550 ml Balance 1710 ml 550 ml Intake Oral 360 ml IV Total 1350 ml 550 ml # Voids 1 3 # Bowel Movements 2 2 Laboratory Tests Test 10/28/18 06:28 White Blood Count 6.0 K/UL (4.8-10.8) Red Blood Count 4.24 M/UL (4.20-5.40) Hemoglobin 12.4 G/DL (12.0-16.0) Hematocrit 36.5 % (37.0-47.0) L Mean Corpuscular Volume 86 FL (80-99) Mean Corpuscular Hemoglobin 29.2 PG (27.0-31.0) Mean Corpuscular Hemoglobin Concent 33.9 G/DL (32.0-36.0) Red Cell Distribution Width 13.4 % (11.6-14.8) Platelet Count 246 K/UL (150-450) Mean Platelet Volume 4.7 FL (6.5-10.1) L Neutrophils (%) (Auto) 64.5 % (45.0-75.0) Lymphocytes (%) (Auto) 24.0 % (20.0-45.0) Monocytes (%) (Auto) 7.9 % (1.0-10.0) Eosinophils (%) (Auto) 2.6 % (0.0-3.0) Basophils (%) (Auto) 1.0 % (0.0-2.0) Sodium Level 144 MMOL/L (136-145) Potassium Level 3.7 MMOL/L (3.5-5.1) Chloride Level 113 MMOL/L (98-107) H Carbon Dioxide Level 19 MMOL/L (21-32) L Anion Gap 12 mmol/L (5-15) Blood Urea Nitrogen 7 mg/dL (7-18) Creatinine 0.6 MG/DL (0.55-1.30) Estimat Glomerular Filtration Rate mL/min (>60) Glucose Level 88 MG/DL (74-106) Calcium Level 8.1 MG/DL (8.5-10.1) L Phosphorus Level 2.8 MG/DL (2.5-4.9) Magnesium Level 2.1 MG/DL (1.8-2.4) Height (Feet): 4 Height (Inches): 10.00 Weight (Pounds): 142 General Appearance: no apparent distress, alert Cardiovascular: normal rate Respiratory/Chest: normal breath sounds, no respiratory distress Abdominal Exam: normal bowel sounds, non tender, soft Extremities: non-tender Objective Poor p.o. intake as reported by the RN Hugh Thomason NP Oct 28, 2018 12:13
--- NOTE | 2018-10-28 12:35 | General Progress Note ---
Assessment/Plan Problem List: (1) Altered mental status ICD Codes: R41.82 - Altered mental status, unspecified SNOMED: 915614273 (2) UTI (urinary tract infection) ICD Codes: N39.0 - Urinary tract infection, site not specified SNOMED: 83975491 (3) Encephalopathy ICD Codes: G93.40 - Encephalopathy, unspecified SNOMED: 79300086 Status: progressing Assessment/Plan alert but not oriented nonverbal abx per id afebrile reviewed chart and labs and meds sepsis encphalopathy due to sepsis is improving Subjective ROS Limited/Unobtainable: Yes Allergies: Coded Allergies: LIANG INHIBITORS (Verified Allergy, Unknown, 11/14/16) Subjective still lethargic and confused Objective Last 24 Hour Vital Signs Date Time Temp Pulse Resp B/P (MAP) Pulse Ox O2 Delivery O2 Flow Rate FiO2 10/28/18 11:45 150/63 10/28/18 09:00 Room Air Room Air 10/28/18 08:00 97.0 69 18 150/63 (92) 100 10/28/18 06:35 117/61 10/28/18 04:00 97.5 66 18 117/61 (79) 100 10/28/18 00:00 98.9 78 18 157/65 (95) 98 10/27/18 21:00 Room Air Room Air 10/27/18 20:00 99.0 92 18 144/60 (88) 97 10/27/18 18:23 158/76 10/27/18 16:00 98.0 70 18 158/76 (103) 97 10/27/18 13:00 97.9 79 19 166/75 (105) 99 Intake and Output 10/27/18 10/28/18 19:00 07:00 Intake Total 1710 ml 550 ml Balance 1710 ml 550 ml Intake Oral 360 ml IV Total 1350 ml 550 ml # Voids 1 3 # Bowel Movements 2 2 Laboratory Tests 10/28/18 06:28: White Blood Count 6.0, Red Blood Count 4.24, Hemoglobin 12.4, Hematocrit 36.5L, Mean Corpuscular Volume 86, Mean Corpuscular Hemoglobin 29.2, Mean Corpuscular Hemoglobin Concent 33.9, Red Cell Distribution Width 13.4, Platelet Count 246, Mean Platelet Volume 4.7L, Neutrophils (%) (Auto) 64.5, Lymphocytes (%) (Auto) 24.0, Monocytes (%) (Auto) 7.9, Eosinophils (%) (Auto) 2.6, Basophils (%) (Auto ) 1.0, Sodium Level 144, Potassium Level 3.7, Chloride Level 113H, Carbon Dioxide Level 19L, Anion Gap 12, Blood Urea Nitrogen 7, Creatinine 0.6, Estimat Glomerular Filtration Rate , Glucose Level 88, Calcium Level 8.1L, Phosphorus Level 2.8, Magnesium Level 2.1 Height (Feet): 4 Height (Inches): 10.00 Weight (Pounds): 142 General Appearance: confused Neck: supple Cardiovascular: normal rate Respiratory/Chest: lungs clear Carlos Green MD Oct 28, 2018 12:35
--- NOTE | 2018-10-28 14:38 | Infectious Diseases Prog Note ---
Assessment/Plan Assessment/Plan A: 1. Strep group B UTI. treated 2. Encephalopathy.toxic-metabolic 3. Altered mental status. 4. Dementia. 5. Major depressive disorder. 6. Hypertension. 7. Poor oral intake RECOMMENDATION: Observe off antibiotic Family doesn't want GT placement Subjective ROS Limited/Unobtainable: Yes Allergies: Coded Allergies: LIANG INHIBITORS (Verified Allergy, Unknown, 11/14/16) Objective Vital Signs Last 24 Hour Vital Signs Date Time Temp Pulse Resp B/P (MAP) Pulse Ox O2 Delivery O2 Flow Rate FiO2 10/28/18 11:45 150/63 10/28/18 09:00 Room Air Room Air 10/28/18 08:00 97.0 69 18 150/63 (92) 100 10/28/18 06:35 117/61 10/28/18 04:00 97.5 66 18 117/61 (79) 100 10/28/18 00:00 98.9 78 18 157/65 (95) 98 10/27/18 21:00 Room Air Room Air 10/27/18 20:00 99.0 92 18 144/60 (88) 97 10/27/18 18:23 158/76 10/27/18 16:00 98.0 70 18 158/76 (103) 97 Height (Feet): 4 Height (Inches): 10.00 Weight (Pounds): 142 General Appearance: no acute distress HEENT: mucous membranes moist Respiratory/Chest: lungs clear Cardiovascular: normal rate Abdomen: soft, non tender Extremities: no edema Neurologic/Psychiatric: aphasia, other - opens eyes Laboratory Tests Test 10/28/18 06:28 White Blood Count 6.0 K/UL (4.8-10.8) Red Blood Count 4.24 M/UL (4.20-5.40) Hemoglobin 12.4 G/DL (12.0-16.0) Hematocrit 36.5 % (37.0-47.0) L Mean Corpuscular Volume 86 FL (80-99) Mean Corpuscular Hemoglobin 29.2 PG (27.0-31.0) Mean Corpuscular Hemoglobin Concent 33.9 G/DL (32.0-36.0) Red Cell Distribution Width 13.4 % (11.6-14.8) Platelet Count 246 K/UL (150-450) Mean Platelet Volume 4.7 FL (6.5-10.1) L Neutrophils (%) (Auto) 64.5 % (45.0-75.0) Lymphocytes (%) (Auto) 24.0 % (20.0-45.0) Monocytes (%) (Auto) 7.9 % (1.0-10.0) Eosinophils (%) (Auto) 2.6 % (0.0-3.0) Basophils (%) (Auto) 1.0 % (0.0-2.0) Sodium Level 144 MMOL/L (136-145) Potassium Level 3.7 MMOL/L (3.5-5.1) Chloride Level 113 MMOL/L (98-107) H Carbon Dioxide Level 19 MMOL/L (21-32) L Anion Gap 12 mmol/L (5-15) Blood Urea Nitrogen 7 mg/dL (7-18) Creatinine 0.6 MG/DL (0.55-1.30) Estimat Glomerular Filtration Rate mL/min (>60) Glucose Level 88 MG/DL (74-106) Calcium Level 8.1 MG/DL (8.5-10.1) L Phosphorus Level 2.8 MG/DL (2.5-4.9) Magnesium Level 2.1 MG/DL (1.8-2.4) Current Medications Medications (Trade) Dose Ordered Sig/Román Route PRN Reason Start Time Stop Time Status Last Admin Dose Admin Acetaminophen (Tylenol) 500 mg Q4H PRN ORAL Mild Pain/Temp > 100.5 10/27/18 13:17 11/17/18 13:16 Acetaminophen (Tylenol) 650 mg Q4H PRN RECTAL Mild Pain/Temp > 100.5 10/27/18 13:30 11/18/18 13:16 Dextrose/Sodium Chloride 1,000 ml @ 50 mls/hr Q20H IV 10/27/18 13:15 11/23/18 13:59 10/28/18 09:45 Heparin Sodium (Porcine) (Heparin 5000 units/ml) 5,000 units EVERY 12 HOURS SUBQ 10/27/18 21:00 11/17/18 20:59 10/28/18 08:19 Levetiracetam 100 ml @ 400 mls/hr Q12HR IVPB 10/27/18 21:00 11/22/18 11:59 10/28/18 08:18 Nitroglycerin (Nitro-Bid) 1 inch TID@0600,1200,1800 TOPIC 10/27/18 18:00 11/18/18 11:59 10/28/18 11:45 Pantoprazole (Protonix) 40 mg DAILY ORAL 10/28/18 09:00 11/21/18 08:59 10/28/18 08:17 Landon Pagan MD Oct 28, 2018 14:38
[2018-10-28 16:00] VITALS: BP 160/96
--- NOTE | 2018-10-28 16:28 | Nephrology Progress Note ---
Assessment/Plan Problem List: (1) Epileptic seizure, generalized (2) UTI (urinary tract infection) (3) Encephalopathy Assessment Acute Encephalopathy UTI Sepsis, leukocytosis Sz Plan Dc IV ? PEG ? family refuse DNR ? Dc planning DC Monitor Subjective ROS Limited/Unobtainable: No Constitutional: Reports: malaise, weakness Objective Objective Last 24 Hour Vital Signs Date Time Temp Pulse Resp B/P (MAP) Pulse Ox O2 Delivery O2 Flow Rate FiO2 10/28/18 12:00 97.1 58 18 114/65 (81) 100 10/28/18 11:45 150/63 10/28/18 09:00 Room Air Room Air 10/28/18 08:00 97.0 69 18 150/63 (92) 100 10/28/18 06:35 117/61 10/28/18 04:00 97.5 66 18 117/61 (79) 100 10/28/18 00:00 98.9 78 18 157/65 (95) 98 10/27/18 21:00 Room Air Room Air 10/27/18 20:00 99.0 92 18 144/60 (88) 97 10/27/18 18:23 158/76 Intake and Output 10/27/18 10/28/18 18:59 06:59 Intake Total 1710 ml 500 ml Balance 1710 ml 500 ml Intake Oral 360 ml IV Total 1350 ml 500 ml # Voids 1 3 # Bowel Movements 2 2 Laboratory Tests 10/28/18 06:28: White Blood Count 6.0, Red Blood Count 4.24, Hemoglobin 12.4, Hematocrit 36.5L, Mean Corpuscular Volume 86, Mean Corpuscular Hemoglobin 29.2, Mean Corpuscular Hemoglobin Concent 33.9, Red Cell Distribution Width 13.4, Platelet Count 246, Mean Platelet Volume 4.7L, Neutrophils (%) (Auto) 64.5, Lymphocytes (%) (Auto) 24.0, Monocytes (%) (Auto) 7.9, Eosinophils (%) (Auto) 2.6, Basophils (%) (Auto ) 1.0, Sodium Level 144, Potassium Level 3.7, Chloride Level 113H, Carbon Dioxide Level 19L, Anion Gap 12, Blood Urea Nitrogen 7, Creatinine 0.6, Estimat Glomerular Filtration Rate , Glucose Level 88, Calcium Level 8.1L, Phosphorus Level 2.8, Magnesium Level 2.1 Height (Feet): 4 Height (Inches): 10.00 Weight (Pounds): 142 General Appearance: no apparent distress Cardiovascular: arrhythmia Respiratory/Chest: decreased breath sounds Abdomen: soft Objective PE NO CHANGE Ashok Ann MD Oct 28, 2018 16:28
--- NOTE | 2018-10-28 19:19 | NUR ---
HAND-OFF: Report given to DE Day.
--- NOTE | 2018-10-28 19:29 | NUR ---
NURSE NOTES: Patient in bed, awake, nonverbal. Patient respiration is even and unlabored. NO s/s of pain or discomfort noted. Abdomen is soft and non distended. Skin is warm and dry to touch. IV site is noted. Bed in low and locked position. Provided safe environment. Call light is at bedside. Multiple visual checks will be done. Reposition every 2 hrs and prn. Will continue plan of care.
[2018-10-28 20:00] VITALS: BP 151/75
[2018-10-29] VITALS: BP 145/73
[2018-10-29 04:00] VITALS: BP 137/55
[2018-10-29] MEDS: Nitroglycerin 2% oint pkt TOPIC SCH (05:53)
--- NOTE | 2018-10-29 07:08 | NUR ---
HAND-OFF: Report given to DE Flower.
[2018-10-29 07:19] LABS: BASOPHILS % (AUTO) 0.6 % (0.0-2.0); EOSINOPHILS % (AUTO) 2.3 % (0.0-3.0); HEMOGLOBIN 13.4 G/DL (12.0-16.0); LYMPHOCYTES % (AUTO) 27.2 % (20.0-45.0); MEAN CORPUSCULAR VOLUME 87 FL (80-99); MONOCYTES % (AUTO) 9.9 % (1.0-10.0); NEUTROPHILS % (AUTO) 60.1 % (45.0-75.0); PLATELET COUNT 244 K/UL (150-450); RED BLOOD COUNT 4.61 M/UL (4.20-5.40); RED CELL DISTRIBUTION WIDTH 13.8 % (11.6-14.8); WHITE BLOOD COUNT 5.7 K/UL (4.8-10.8)
[2018-10-29 08:00] VITALS: BP 133/66
[2018-10-29 08:00] LABS: ANION GAP 9 mmol/L (5-15); BLOOD UREA NITROGEN 4 mg/dL (7-18); CALCIUM 8.8 MG/DL (8.5-10.1); CARBON DIOXIDE 24 MMOL/L (21-32); CHLORIDE 113 MMOL/L (98-107); CREATININE 0.8 MG/DL (0.55-1.30); POTASSIUM 3.5 MMOL/L (3.5-5.1); SODIUM 146 MMOL/L (136-145)
--- NOTE | 2018-10-29 08:00 | NUR ---
NURSE NOTES: Received patient in bed, resting. Patient nonverbal. IV intact. No signs of respiratory distress, patient in room air. Bed in lowest position, HOB 30 degrees. Will continue to monitor.
[2018-10-29] MEDS: levETIRAcetam 500mg/NS100ml 100 ML IVPB SCH (08:45)
[2018-10-29] MEDS: Heparin 5000 units/ml inj SUBQ SCH (08:47)
[2018-10-29] MEDS ORDERED: KEPPRA500 M4 ORAL (10:34)
--- NOTE | 2018-10-29 10:44 | NUR ---
*-* DISCHARGE PLANNED *-* PATIENT IS DISCHARGED BACK TO: [facility] ROOM# 5-C SKILLED T:[phone] FOR NURSE TO NURSE REPORT [facility] HAS BEEN ARRANGED FOR RADIATION ONCOLOGY MANAGER AT [address] [facility] [id number] *-* TRIED TO NOTIFIED FAMILY CALLED THE SONS NUMBER WITH NO ANSWER OR VM, TRIED THE SPOUSES NUMBER THAT LINE IS NOT TAKING CALL AT THE TIME *-*
--- NOTE | 2018-10-29 10:53 | NUR ---
NURSE NOTES: Report given to RN at [facility]. Endorsed pressure ulcer stage II. Attempted to call [facility], no answer.
--- NOTE | 2018-10-29 11:26 | GI Progress Note ---
Assessment/Plan Problems: (1) Failure to thrive SNOMED: 39056238 (2) Dehydration ICD Codes: E86.0 - Dehydration SNOMED: 51808805 (3) Severe malnutrition ICD Codes: E43 - Unspecified severe protein-calorie malnutrition SNOMED: 68142207 (4) Encephalopathy ICD Codes: G93.40 - Encephalopathy, unspecified SNOMED: 11641733 (5) Altered mental status ICD Codes: R41.82 - Altered mental status, unspecified SNOMED: 959692577 Status: unchanged Status Narrative Discussed with Dr. Marcelino Assessment/Plan Family refusing G-tube or NG tube feeding follow up calorie count Marinol for appetite stimulant One-to-one feeder push PO Supportive care Zofran as needed The patient was seen and examined at bedside and all new and available data was reviewed in the patients chart. I agree with the above findings, impression and plan. (Patient seen earlier today. Signature stamp does not reflect patient encounter time.). - René Marcelino MD Subjective Subjective Limited Objective Last 24 Hour Vital Signs Date Time Temp Pulse Resp B/P (MAP) Pulse Ox O2 Delivery O2 Flow Rate FiO2 10/29/18 09:00 Room Air Room Air 10/29/18 08:00 97.3 63 20 133/66 (88) 100 10/29/18 05:53 137/55 10/29/18 04:00 98.6 61 18 137/55 (82) 98 10/29/18 00:00 98.2 69 18 145/73 (97) 99 10/28/18 20:21 Room Air Room Air 10/28/18 20:00 98.7 66 18 151/75 (100) 98 10/28/18 17:39 160/96 10/28/18 16:00 97.2 65 20 160/96 (117) 96 10/28/18 12:00 97.1 58 18 114/65 (81) 100 10/28/18 11:45 150/63 Intake and Output 10/28/18 10/29/18 19:00 07:00 Intake Total 1400 ml 100 ml Output Total 1200 ml Balance 200 ml 100 ml Intake Oral 1000 ml IV Total 400 ml 100 ml Output Urine Total 1200 ml # Voids 4 Laboratory Tests Test 10/29/18 05:45 White Blood Count 5.7 K/UL (4.8-10.8) Red Blood Count 4.61 M/UL (4.20-5.40) Hemoglobin 13.4 G/DL (12.0-16.0) Hematocrit 40.0 % (37.0-47.0) Mean Corpuscular Volume 87 FL (80-99) Mean Corpuscular Hemoglobin 29.1 PG (27.0-31.0) Mean Corpuscular Hemoglobin Concent 33.6 G/DL (32.0-36.0) Red Cell Distribution Width 13.8 % (11.6-14.8) Platelet Count 244 K/UL (150-450) Mean Platelet Volume 4.6 FL (6.5-10.1) L Neutrophils (%) (Auto) 60.1 % (45.0-75.0) Lymphocytes (%) (Auto) 27.2 % (20.0-45.0) Monocytes (%) (Auto) 9.9 % (1.0-10.0) Eosinophils (%) (Auto) 2.3 % (0.0-3.0) Basophils (%) (Auto) 0.6 % (0.0-2.0) Sodium Level 146 MMOL/L (136-145) H Potassium Level 3.5 MMOL/L (3.5-5.1) Chloride Level 113 MMOL/L (98-107) H Carbon Dioxide Level 24 MMOL/L (21-32) Anion Gap 9 mmol/L (5-15) Blood Urea Nitrogen 4 mg/dL (7-18) L Creatinine 0.8 MG/DL (0.55-1.30) Estimat Glomerular Filtration Rate mL/min (>60) Glucose Level 87 MG/DL (74-106) Calcium Level 8.8 MG/DL (8.5-10.1) Height (Feet): 4 Height (Inches): 10.00 Weight (Pounds): 142 General Appearance: WD/WN, no apparent distress, alert Cardiovascular: normal rate Respiratory/Chest: normal breath sounds, no respiratory distress Abdominal Exam: normal bowel sounds, non tender, soft Extremities: non-tender Objective Poor p.o. intake as reported by the RN Hugh Thomason NP Oct 29, 2018 11:26
--- NOTE | 2018-10-29 13:04 | NUR ---
NURSE NOTES: Patient discharged to [facility] with [facility]. Discharge packet and interfacility report given to EMT. IV removed. ID band removed. Patient discharged in stable condition.
--- NOTE | 2018-10-29 14:15 | Nephrology Progress Note ---
Assessment/Plan Problem List: (1) Epileptic seizure, generalized (2) UTI (urinary tract infection) (3) Encephalopathy Assessment Acute Encephalopathy UTI Sepsis, leukocytosis Sz Plan Dc IV ? PEG ? family refuse DNR ? Dc planning DC Monitor Subjective ROS Limited/Unobtainable: No Interval Events/Complaints seen at 9.50 am Constitutional: Reports: malaise Objective Objective Last 24 Hour Vital Signs Date Time Temp Pulse Resp B/P (MAP) Pulse Ox O2 Delivery O2 Flow Rate FiO2 10/29/18 09:00 Room Air Room Air 10/29/18 08:00 97.3 63 20 133/66 (88) 100 10/29/18 05:53 137/55 10/29/18 04:00 98.6 61 18 137/55 (82) 98 10/29/18 00:00 98.2 69 18 145/73 (97) 99 10/28/18 20:21 Room Air Room Air 10/28/18 20:00 98.7 66 18 151/75 (100) 98 10/28/18 17:39 160/96 10/28/18 16:00 97.2 65 20 160/96 (117) 96 Intake and Output 10/28/18 10/29/18 19:00 07:00 Intake Total 1400 ml 100 ml Output Total 1200 ml Balance 200 ml 100 ml Intake Oral 1000 ml IV Total 400 ml 100 ml Output Urine Total 1200 ml # Voids 4 Laboratory Tests 10/29/18 05:45: White Blood Count 5.7, Red Blood Count 4.61, Hemoglobin 13.4, Hematocrit 40.0, Mean Corpuscular Volume 87, Mean Corpuscular Hemoglobin 29.1, Mean Corpuscular Hemoglobin Concent 33.6, Red Cell Distribution Width 13.8, Platelet Count 244, Mean Platelet Volume 4.6L, Neutrophils (%) (Auto) 60.1, Lymphocytes (%) (Auto) 27.2, Monocytes (%) (Auto) 9.9, Eosinophils (%) (Auto) 2.3, Basophils (%) (Auto ) 0.6, Sodium Level 146H, Potassium Level 3.5, Chloride Level 113H, Carbon Dioxide Level 24, Anion Gap 9, Blood Urea Nitrogen 4L, Creatinine 0.8, Estimat Glomerular Filtration Rate , Glucose Level 87, Calcium Level 8.8 Height (Feet): 4 Height (Inches): 10.00 Weight (Pounds): 142 General Appearance: no apparent distress Objective PE NO CHANGE Ashok Ann MD Oct 29, 2018 14:15
--- NOTE | 2018-10-29 23:15 | General Progress Note ---
Assessment/Plan Assessment/Plan Assessment and Recs: # Erythrocytosis - multiple etiologies, requires higher oxygen demand --> jak2 not required at this time --> give ivf to see if patient potentially dehydrated --> us of the abd can be withheld at this time --> no smoking in future --> currently has improved most likely related to fluid redistribution --> cbc for 10/25 # Hyperproteinemia, elevated protein albumin ratio --> spep is wnl, no mspikes noted on bands --> no sig evidence of kajal, anemia, bony lesions, unlikely myeloma # Altered mental status --> per neuro management --> may need rehab in future # Epileptic seizure, generalized --> as per neuro Greatly appreciate consultation! Subjective Date patient seen: Oct 28, 2018 Allergies: Coded Allergies: LIANG INHIBITORS (Verified Allergy, Unknown, 11/14/16) Subjective 10/20: seen by bedside, awake, comfortable, no acute events 10/21: swallow eval ordered, speech to eval, remains somewhat lethargic 10/22: awake, comfortable, remains lethargic and confused. 10/24: no major events, skin tears on chest noted, where tegaderm was 10/25: seen by bedside, still lethargic and confused 10/26: Pt is seen by bedside, remains lethargic and confused, Family doesn't want GT placement, 10/27: seen by bedside, awake, comfortable, still lethargic and confused 10/28: Family refusing G-tube or NG tube feeding, no events Objective Last 24 Hour Vital Signs Date Time Temp Pulse Resp B/P (MAP) Pulse Ox O2 Delivery O2 Flow Rate FiO2 10/29/18 09:00 Room Air Room Air 10/29/18 08:00 97.3 63 20 133/66 (88) 100 10/29/18 05:53 137/55 10/29/18 04:00 98.6 61 18 137/55 (82) 98 10/29/18 00:00 98.2 69 18 145/73 (97) 99 Intake and Output 10/28/18 10/29/18 19:00 07:00 Intake Total 1400 ml 100 ml Output Total 1200 ml Balance 200 ml 100 ml Intake Oral 1000 ml IV Total 400 ml 100 ml Output Urine Total 1200 ml # Voids 4 Laboratory Tests 10/29/18 05:45: White Blood Count 5.7, Red Blood Count 4.61, Hemoglobin 13.4, Hematocrit 40.0, Mean Corpuscular Volume 87, Mean Corpuscular Hemoglobin 29.1, Mean Corpuscular Hemoglobin Concent 33.6, Red Cell Distribution Width 13.8, Platelet Count 244, Mean Platelet Volume 4.6L, Neutrophils (%) (Auto) 60.1, Lymphocytes (%) (Auto) 27.2, Monocytes (%) (Auto) 9.9, Eosinophils (%) (Auto) 2.3, Basophils (%) (Auto ) 0.6, Sodium Level 146H, Potassium Level 3.5, Chloride Level 113H, Carbon Dioxide Level 24, Anion Gap 9, Blood Urea Nitrogen 4L, Creatinine 0.8, Estimat Glomerular Filtration Rate , Glucose Level 87, Calcium Level 8.8 Height (Feet): 4 Height (Inches): 10.00 Weight (Pounds): 142 Objective General Appearance: alert, thin, Chronically Ill Head: atraumatic ENT: normal ENT inspection, hearing grossly normal, normal voice Neck: no bony tend Respiratory: normal inspection, no cwr Gastrointestinal: soft, no guarding, no hernia Genitourinary: no CVA tenderness Musculoskeletal: normal inspection, back normal, normal range of motion Neurologic: motor weakness Psychiatric: depressed affect Skin: normal inspection Charles Gr MD Oct 29, 2018 23:15
--- NOTE | 2018-10-29 23:18 | General Progress Note ---
Assessment/Plan Assessment/Plan Assessment and Recs: # Erythrocytosis - multiple etiologies, requires higher oxygen demand --> jak2 not required at this time --> give ivf to see if patient potentially dehydrated --> us of the abd can be withheld at this time --> no smoking in future --> currently has improved most likely related to fluid redistribution --> cbc for 10/25 # Hyperproteinemia, elevated protein albumin ratio --> spep is wnl, no mspikes noted on bands --> no sig evidence of kajal, anemia, bony lesions, unlikely myeloma # Altered mental status --> per neuro management --> may need rehab in future # Epileptic seizure, generalized --> as per neuro Greatly appreciate consultation! Subjective ROS Limited/Unobtainable: Yes Allergies: Coded Allergies: LIANG INHIBITORS (Verified Allergy, Unknown, 11/14/16) Subjective 10/20: seen by bedside, awake, comfortable, no acute events 10/21: swallow eval ordered, speech to eval, remains somewhat lethargic 10/22: awake, comfortable, remains lethargic and confused. 10/24: no major events, skin tears on chest noted, where tegaderm was 10/25: seen by bedside, still lethargic and confused 2: Pt is seen by bedside, remains lethargic and confused, Family doesn't want GT placement, 10/27: seen by bedside, awake, comfortable, still lethargic and confused 2: Family refusing G-tube or NG tube feeding, no events 10/29: Patient in bed, awake, nonverbal, no events reported Objective Last 24 Hour Vital Signs Date Time Temp Pulse Resp B/P (MAP) Pulse Ox O2 Delivery O2 Flow Rate FiO2 10/29/18 09:00 Room Air Room Air 10/29/18 08:00 97.3 63 20 133/66 (88) 100 10/29/18 05:53 137/55 10/29/18 04:00 98.6 61 18 137/55 (82) 98 10/29/18 00:00 98.2 69 18 145/73 (97) 99 Intake and Output 10/28/18 10/29/18 19:00 07:00 Intake Total 1400 ml 100 ml Output Total 1200 ml Balance 200 ml 100 ml Intake Oral 1000 ml IV Total 400 ml 100 ml Output Urine Total 1200 ml # Voids 4 Laboratory Tests 10/29/18 05:45: White Blood Count 5.7, Red Blood Count 4.61, Hemoglobin 13.4, Hematocrit 40.0, Mean Corpuscular Volume 87, Mean Corpuscular Hemoglobin 29.1, Mean Corpuscular Hemoglobin Concent 33.6, Red Cell Distribution Width 13.8, Platelet Count 244, Mean Platelet Volume 4.6L, Neutrophils (%) (Auto) 60.1, Lymphocytes (%) (Auto) 27.2, Monocytes (%) (Auto) 9.9, Eosinophils (%) (Auto) 2.3, Basophils (%) (Auto ) 0.6, Sodium Level 146H, Potassium Level 3.5, Chloride Level 113H, Carbon Dioxide Level 24, Anion Gap 9, Blood Urea Nitrogen 4L, Creatinine 0.8, Estimat Glomerular Filtration Rate , Glucose Level 87, Calcium Level 8.8 Height (Feet): 4 Height (Inches): 10.00 Weight (Pounds): 142 Objective General Appearance: alert, thin, Chronically Ill Head: atraumatic ENT: normal ENT inspection, hearing grossly normal, normal voice Neck: no bony tend Respiratory: normal inspection, no cwr Gastrointestinal: soft, no guarding, no hernia Genitourinary: no CVA tenderness Musculoskeletal: normal inspection, back normal, normal range of motion Neurologic: motor weakness Psychiatric: depressed affect Skin: normal inspection Charles Gr MD Oct 29, 2018 23:18
--- NOTE | 2018-11-01 14:15 | Discharge Summary ---
Discharge Summary Discharge Summary _ DATE OF ADMISSION: DATE OF DISCHARGE: 10/29/2018 DISCHARGED BY: Dr. Green REASON FOR ADMISSION: 72 years old female with past medical history of hypertension, hyperlipidemia, osteoarthritis, depression, seizure disorder, resident of prison facility, was sent to emergency department with altered mental status. Patient reportedly had been having witnessed seizure-like activity. Upon evaluation patient was tachycardic. Laboratory workup revealed severe leukocytosis with WBC 21.9. Stable hemoglobin and hematocrit. Potassium 3.3. Stable other electrolytes. Stable renal parameters. Glucose 133. Stable LFT. Troponin negative. CT of the head revealed chronic age-related changes, but was negative for acute intracranial bleeding or mass-effect. Chest x-ray revealed no acute cardiopulmonary pathology. Urinalysis revealed pyuria , +3 leukocyte esterase, few bacteria. Patient received IV Keppra and admitted for further management. CONSULTANTS: neurologist Dr. Chappell ID specialist Dr. Pickens GI specialist Dr. Marcelino resume writer Dr. Ann telegraph lineman/oncologist Dr. Gr [facility] COURSE: Patient admitted and started on IV hydration. Patient pancultured and started on empiric antibiotics. Neurologist followed. Given DNR/DNI status neurologist recommended more conservative approach. Seizure precautions were maintained. Patient was started on IV Keppra and Ativan IV as needed for breakthrough seizures, EEG revealed moderate degree of encephalopathy most probably of toxic metabolic component No evidence to suggest herpes simplex encephalitis at this time. Lumbar puncture was not necessary as epr neurologist. Urine culture revealed Strep Group B. Blood culture were negative. Patient completed treatment for UTI with Strep group B. Leukocytosis resolved, patient remained afebrile. Financial Management Analyst closely follow. Patient initially was hydrated with IV fluids . Renal parameters and electrolytes were closely monitored, electrolytes corrected as needed , and nephrotoxins were avoided. Volumes were closely monitored. Venous duplex bilateral lower extremity revealed no evidence of acute DVT. Supplemental oxygen provided as needed to keep pulse oximetry above 92%. Blood pressure was closely monitored , remained stable. Patient had video swallow study done which she failed. Video swallow study was positive for penetration of thin liquid barium. GI specialist closely followed. Family declined G-tube or NG tube feeding. Patient was followed up with calorie count. Marinol was added for appetite stimulation. Diet provided as per speech therapist recommendations for quality of life with one-to-one feeding and strict aspiration/reflux precaution. Supportive care provided. Antiemetics were on board as needed. DVT and GI prophylaxis provided. Sewer Cleaner followed for elevated protein and elevated protein to albumin ratio. Serum protein electrophoresis was within normal limits. No M spikes seen on bands. No significant evidence of acute kidney injury, anemia, bony lesion, unlikely myeloma. Patient symptomatically improved and was ready for transfer back to prison facility. FINAL DIAGNOSES: Acute toxic metabolic encephalopathy Sepsis Strep group B UTI, s/p treatment Seizure disorder Hypertension Dysphagia Severe protein calorie malnutrition Dehydration DISCHARGE MEDICATIONS: See Medication Reconciliation list. DISCHARGE INSTRUCTIONS: Patient was discharged to the prison facility. Follow up with medical doctor at the facility. I have been assigned to dictate discharge summary for this account. I was not involved in the patient's management. Joana Michael NP Nov 01, 2018 14:14
== END 2018-10-29 12:35 | DRG 871 ==
LOC: EDBD 12:16 → EMR 13:15 → 2E 14:02 → EDBEDREQ 14:44 → 2E 17:14 → 4E 10-27 13:04
DX: A41.9 Sepsis, unspecified organism (principal); G92 Toxic encephalopathy; E43 Unspecified severe protein-calorie malnutrition; N39.0 Urinary tract infection, site not specified; G40.409 Other generalized epilepsy and epileptic syndromes, not intractable, without status epilepticus; E87.6 Hypokalemia; Z88.8 Allergy status to other drugs, medicaments and biological substances; I10 Essential (primary) hypertension; K57.90 Diverticulosis of intestine, part unspecified, without perforation or abscess without bleeding; G30.9 Alzheimer's disease, unspecified; F02.80 Dementia in other diseases classified elsewhere, unspecified severity, without behavioral disturbance, psychotic disturbance, mood disturbance, and anxiety; Z66 Do not resuscitate; F32.9 Major depressive disorder, single episode, unspecified; M81.0 Age-related osteoporosis without current pathological fracture; E78.5 Hyperlipidemia, unspecified; M19.90 Unspecified osteoarthritis, unspecified site; B95.1 Streptococcus, group B, as the cause of diseases classified elsewhere; D75.1 Secondary polycythemia; E88.09 Other disorders of plasma-protein metabolism, not elsewhere classified; R13.10 Dysphagia, unspecified; E86.0 Dehydration; Z68.26 Body mass index [BMI] 26.0-26.9, adult
CPT/HCPCS: 36415; 70450; 71045; 74230; 80048; 80053; 80061; 80299; 80307; 81003; 82140; 82550; 82607; 82746; 82977; 83036; 83735; 83880; 84100; 84165; 84443; 84484; 84550; 85007; 85025; 86140; 87040; 87081; 87086; 93005; 93970; 95819; 96374; 99285; J8499